=== PATIENT | female | born 1945 | race Caucasian/White ===

== ENCOUNTER 2020-10-19 18:56 | Inpatient (IN) ==
[2020-10-19] MEDS ORDERED: ACETAMINOPHEN 325 MG TABLET PO ONE (19:06)
[2020-10-19] MEDS ORDERED: cefTRIAXone 1 GM in DEXTROSE 5% IN WATER 50 ML IV SCH (19:15)
[2020-10-19] MEDS ORDERED: ALBUTEROL SULFATE 200 PUFF INHALER INH ONE (19:18)
--- NOTE | 2020-10-19 19:21 | Emergency Department Note ---
SOB HPI General Chief Complaint: Shortness of Breath/Dyspnea Stated Complaint: COVID POSITIVE, SOB Time Seen by Provider: 10/19/20 19:00 Source: patient and EMS Mode of arrival: EMS Limitations: altered mental status History of Present Illness HPI Narrative: 75-year-old female brought in by EMS for shortness of breath. Patient was seen yesterday tested positive for COVID-19. Patient smoke cigarettes likely has COPD. She was found to be hypoxic oxygen saturation in the 80s by EMS improved with supplemental oxygen. Also with diffuse wheezes. No chest pain. Patient also has had some fevers and chills and body aches. She had multiple family members test positive for COVID-19. Related Data Home Medications Medication Instructions Recorded Confirmed gabapentin 100 mg capsule 100 mg PO QDAY 02/08/18 05/29/20 pantoprazole 40 mg granules 40 mg PO QDAY 02/08/18 05/29/20 delayed-release for susp in packet amlodipine 5 mg tablet 5 mg PO QDAY 05/29/20 05/29/20 aspirin 81 mg chewable tablet 81 mg PO QDAY 05/29/20 05/29/20 citalopram 40 mg tablet 40 mg PO QDAY tab 05/29/20 05/29/20 dipyridamole 25 mg tablet 50 mg PO QID tab 05/29/20 05/29/20 insulin glargine 100 unit/mL (3 30 unit SUBCUT QAM ml 05/29/20 05/29/20 mL) subcutaneous pen losartan 50 mg tablet 100 mg PO QDAY tab 05/29/20 05/29/20 metoprolol succinate 50 mg 50 mg PO BID tab 05/29/20 05/29/20 tablet,extended release 24 hr oxybutynin chloride 5 mg tablet 5 mg PO QDAY 05/29/20 05/29/20 pravastatin 40 mg tablet 40 mg PO QDAY 05/29/20 05/29/20 trazodone 50 mg tablet 50 mg PO QHS PRN 05/29/20 05/29/20 ergocalciferol (vitamin D2) PO 10/18/20 Previous Rx's Medication Instructions Recorded azithromycin 250 mg PO QDAY 6 Days #6 tab 10/18/20 Allergies Allergy/AdvReac Type Severity Reaction Status Date / Time bacitracin Allergy Unknown None Stated Verified 10/18/20 20:09 Gramicidin D [From NEOSPORIN] Allergy Unknown None Stated Verified 10/18/20 20:09 Penicillins Allergy Unknown RASH Verified 10/18/20 20:09 polymyxin B [From NEOSPORIN] Allergy Unknown None Stated Verified 10/18/20 20:09 simvastatin [SIMVASTATIN] Allergy Unknown N/A Verified 10/18/20 20:09 Sulfa (Sulfonamide Allergy Unknown None Stated Verified 10/18/20 20:09 Antibiotics) From NEOSPORIN Allergy Unknown Unknown Uncoded 08/02/14 05:01 Review of Systems ROS ROS Narrative: Narrative: All systems ED: reviewed and negative except as stated. Constitutional: Reports fever and chills Eyes: Denies vision change ENT ED: Denies throat pain and congestion Cardiovascular: Denies chest pain Respiratory: Reports shortness of breath, cough and wheezes Gastrointestinal: Denies abdominal pain, vomiting and diarrhea Musculoskeletal: Reports joint pain and myalgia Integumentary: Denies rash Neurological: Reports headache Psychiatric: Denies anxiety, suicidal thoughts and homicidal thoughts Endocrine: Denies polydipsia and polyuria Hematological/Lymphatic: Denies easy bleeding and easy bruising PFSH Narrative Patient History Narrative: Hypertension hyperlipidemia and diabetes, CABG Medical/Surgical/Family History All Active Problems (Updated 10/19/20 @ 20:57 by Jonathan Ulloa MD) COVID-19 (Acute) Hypoxemia (Acute) Pneumonia due to 2019 novel coronavirus (Acute) Head injury (Acute) Scalp laceration (Acute) Medical History Head injury Scalp laceration Social History Smoking Status: Current every day smoker Alcohol Intake Frequency: does not drink Substance Use: does not use Exam Narrative Narrative: Vital Signs reviewed. Constitutional: Mild respiratory distress well-nourished well-developed Head: Normocephalic, atraumatic Eyes: PERRLA, EOMI, no conjunctivitis Ear: Normal canals and TM's Oropharynx: moist oral mucosa, no edema, no erythema, no exudate Neck: Supple, no lymphadenopathy, no JVD Lungs: Tachypneic, mildly labored breathing, bilateral wheezes Cardiac: Tachycardic, regular rhythm normal distal pulses, GI: Soft nontender nondistended no guarding no rebound Musculoskeletal: No tenderness, no deformities, no edema, full range of motion Back: no CVA or midline tenderness Neuro: Awake alert, cranial nerves II through XII grossly intact, no focal motor or sensory deficits Psychiatric: Normal mood and affect Skin: Warm dry no rash, cap refill less than 2 seconds General Limitations: altered mental status Course Consultations Consultation #1: As discussed with hospitalist Dr. Ramos who agrees to see and admit patient. Time: 21:21 Vital Signs Vital signs: Vital Signs Temperature 101.7 F H 10/19/20 18:59 Pulse Rate 103 H 10/19/20 18:59 Respiratory Rate 28 H 10/19/20 18:59 Blood Pressure 189/64 10/19/20 18:59 Pulse Oximetry (%) 89 L 10/19/20 18:59 Temperature 101.7 F H 10/19/20 19:28 Pulse Rate 86 10/19/20 21:02 Respiratory Rate 31 H 10/19/20 21:02 Blood Pressure 171/65 10/19/20 21:02 Pulse Oximetry (%) 91 10/19/20 21:02 [facility] MDM Narrative Medical decision making narrative: 75-year-old female tested positive for COVID- 19 yesterday chest x-ray had bilateral infiltrates but was not hypoxic and was not in any distress declined the monoclonal antibody by 5app but was prescribed Zithromax due to history of COPD returns today via EMS for increasing shortness of breath hypoxemia. History of tobacco abuse likely has COPD. Has bronchospasm noted on exam. Patient will be admitted for further evaluation and treatment. Differential Diagnosis Differential Diagnosis: Covid pneumonia, worsening, CHF, ACS Lab Data Result diagrams: 10/19/20 19:25 10/19/20 19:25 Labs: Lab Results 10/19/20 10/19/20 10/19/20 Range/Units 19:25 19:25 19:25 WBC 5.2 (4.5-11.0) K/mcL RBC 4.42 (3.59-5.38) M/mcL Hgb 10.9 L (11.2-15.7) g/dL Hct 34.1 (34.1-44.9) % MCV 77.1 L (80.0-100.0) fL MCH 24.7 L (26.0-34.0) pg MCHC 32.0 (31.0-36.0) g/dL RDW 14.6 H (11.5-14.5) % Plt Count 256 (140-440) K/mcL MPV 10.0 (7.4-10.4) fL PT 12.8 (11.9-14.5) sec INR 0.9 (0.9-1.1) APTT 27.1 (20.0-37.0) sec VBG Lactic Acid (0.5-2.0) mmol/L Sodium 131 L (133-145) mmol/L Potassium 4.0 (3.3-5.1) mmol/L Chloride 94 L (96-108) mmol/L Carbon Dioxide 19 L (22-30) mmol/L Anion Gap 18.0 H (8.0-16.0) BUN 15 (8-23) mg/dL Creatinine 1.6 H (0.6-1.1) mg/dL GFR Calculation 31 Glucose 160 H (70-105) mg/dL Calcium 9.7 (8.6-10.4) mg/dL Total Bilirubin 0.6 (0.1-1.0) mg/dL AST 59 H (<32) U/L ALT 24 (<40) U/L Alkaline Phosphatase 88 (39-117) U/L Troponin T (<0.03) ng/mL NT-Pro-B Natriuret Pep 1004.0 H (<125.0) pg/mL Total Protein 7.2 (5.9-8.4) gm/dL Albumin 3.7 (3.2-5.2) gm/dL Globulin 3.5 (2.2-3.7) gm/dL Albumin/Globulin Ratio 1.1 (1.0-2.3) Procalcitonin (<0.10) ng/mL 10/19/20 10/19/20 10/19/20 Range/Units 19:25 19:25 19:25 WBC (4.5-11.0) K/mcL RBC (3.59-5.38) M/mcL Hgb (11.2-15.7) g/dL Hct (34.1-44.9) % MCV (80.0-100.0) fL MCH (26.0-34.0) pg MCHC (31.0-36.0) g/dL RDW (11.5-14.5) % Plt Count (140-440) K/mcL MPV (7.4-10.4) fL PT (11.9-14.5) sec INR (0.9-1.1) APTT (20.0-37.0) sec VBG Lactic Acid < 0.2 L (0.5-2.0) mmol/L Sodium (133-145) mmol/L Potassium (3.3-5.1) mmol/L Chloride (96-108) mmol/L Carbon Dioxide (22-30) mmol/L Anion Gap (8.0-16.0) BUN (8-23) mg/dL Creatinine (0.6-1.1) mg/dL GFR Calculation Glucose (70-105) mg/dL Calcium (8.6-10.4) mg/dL Total Bilirubin (0.1-1.0) mg/dL AST (<32) U/L ALT (<40) U/L Alkaline Phosphatase (39-117) U/L Troponin T 0.01 (<0.03) ng/mL NT-Pro-B Natriuret Pep (<125.0) pg/mL Total Protein (5.9-8.4) gm/dL Albumin (3.2-5.2) gm/dL Globulin (2.2-3.7) gm/dL Albumin/Globulin Ratio (1.0-2.3) Procalcitonin 0.15 H (<0.10) ng/mL EKG Data EKG #1: EKG attestation: Yes I reviewed and interpreted this EKG. and Yes There are no EKG findings of acute coronary syndrome EKG results narrative: EKG performed at 1927 interpreted by me shows sinus rhythm rate [address] depression in the anterolateral leads no ectopy Discharge Plan Patient/Caregiver Discharge Instructions Pt seen by DIRECTOR OF PAYROLL/PA only: No Clinical Impression: Hypoxemia, Pneumonia due to 2019 novel coronavirus Patient Disposition: Xfer As Inpt ([facility]) Condition: Fair Follow up with: Aleyda Mendez MD [Primary Care Provider] - Prescriptions: No Action pantoprazole [address] for susp in packet 40 mg PO QDAY RF: 0 gabapentin 100 mg capsule 100 mg PO QDAY RF: 0 metoprolol succinate 50 mg tablet extended release 24 hr 50 mg PO BID RF: 0 aspirin [Aspirin Childrens] 81 mg tablet,chewable 81 mg PO QDAY RF: 0 citalopram 40 mg tablet 40 mg PO QDAY RF: 0 amlodipine 5 mg tablet 5 mg PO QDAY RF: 0 Lantus Solostar U-100 Insulin 100 unit/mL (3 mL) insulin pen 30 unit subcut QAM RF: 0 losartan 50 mg tablet 100 mg PO QDAY RF: 0 oxybutynin chloride 5 mg tablet 5 mg PO QDAY RF: 0 pravastatin 40 mg tablet 40 mg PO QDAY RF: 0 trazodone 50 mg tablet 50 mg PO QHS PRN (Reason: Sleep) RF: 0 dipyridamole 25 mg tablet 50 mg PO QID RF: 0 ergocalciferol (vitamin D2) 1,250 mcg (50,000 unit) capsule PO RF: 0 azithromycin 250 mg tablet 250 mg PO QDAY 6 Days Qty: 6 RF: 0
[2020-10-19] MEDS: ALBUTEROL SULFATE 2.5 MG/3 ML NEBULIZER NEB ONE ×2 (19:29→19:31)
[2020-10-19 20:19] LABS: Hematocrit 34.1 % (34.1-44.9); Hemoglobin 10.9 g/dL (11.2-15.7); Mean Cell Volume 77.1 fL (80.0-100.0); Platelet Count 256 K/mcL (140-440); RBC 4.42 M/mcL (3.59-5.38); Red Cell Distribution Width 14.6 % (11.5-14.5); WBC 5.2 K/mcL (4.5-11.0)
--- NOTE | 2020-10-19 20:23 | XRay Report ---
HISTORY: Short of breath, tested positive for COVID pneumonia FINDINGS: There is a patchy distribution of groundglass alveolar infiltrates throughout both lungs. These have become worse since 10/18/20. Lung volumes remain normal. There is no pneumothorax or pleural effusion. Heart size is within upper limits of normal. There has been a prior sternotomy. IMPRESSION: Mild to moderate COVID pneumonia which is becoming worse Interpreted and Authenticated by: Alfa Juarez 10/19/20
[2020-10-19 20:36] LABS: INR 0.9 (0.9-1.1); Partial Thromboplastin Time 27.1 sec (20.0-37.0); Prothrombin Time 12.8 sec (11.9-14.5)
[2020-10-19 20:43] LABS: ALT/SGPT 24 U/L (<40); AST/SGOT 59 U/L (<32); Albumin 3.7 gm/dL (3.2-5.2); Albumin/Globulin Ratio 1.1 (1.0-2.3); Alkaline Phosphatase 88 U/L (39-117); Bilirubin,Total 0.6 mg/dL (0.1-1.0); Blood Urea Nitrogen 15 mg/dL (8-23); Calcium 9.7 mg/dL (8.6-10.4); Carbon Dioxide 19 mmol/L (22-30); Chloride 94 mmol/L (96-108); Globulin 3.5 gm/dL (2.2-3.7); Glomerular Filtration Rate 31; Glucose 160 mg/dL (70-105)
[2020-10-19] MEDS ORDERED: REMDESIVIR 200 MG in 0.9 % SODIUM CHLORIDE 250 ML IV ONE (21:34)
--- NOTE | 2020-10-19 21:38 | Internal Med History&Physical ---
HPI History of Present Illness Patient information: Note initiated : 10/19/20 at 9:32 pm Service Date, if different from initiated Date: [] Patient: Sharla Michaels a 75 y/o F admitted on for COVID POSITIVE, SOB. Chief Complaint: [] History of present illness: Ms. Michaels is a 75 year old F Patient presents to the ED with shortness of breath cough fever chills. Patient says she has been ill for about 5 days she came in yesterday and was found to be Covid positive she was offered monoclonal antibodies but refused. She is unvaccinated and says she did get vaccinated because she does not drive. Ms Michaels is yet another unvaccinated patient presenting with Covid pneumonia. She has a history of diabetes stroke vascular disease including CAD has obesity and smokes as well as has COPD. In the ED she was hypoxic in the upper 80s on room air put on several liters oxygen. Review of Systems: Pertinent positives as above. Denies headache/nausea/vomiting/chest or abdominal pain/diarrhea. Remaining 10 point review of system reviewed negative PFSH PFSH All Active Problems (Updated 10/19/20 @ 20:57 by Jonathan Ulloa MD) COVID-19 (Acute) Hypoxemia (Acute) Pneumonia due to 2019 novel coronavirus (Acute) Head injury (Acute) Scalp laceration (Acute) Medical History Head injury Scalp laceration Social History alcohol intake frequency: does not drink substance use type: does not use MEDS/ALLERGIES Home Medications and Allergies Home Medications Medication Instructions Recorded Confirmed Type gabapentin 100 mg capsule 100 mg PO QDAY 02/08/18 05/29/20 History pantoprazole 40 mg granules 40 mg PO QDAY 02/08/18 05/29/20 History delayed-release for susp in packet amlodipine 5 mg tablet 5 mg PO QDAY 05/29/20 05/29/20 History aspirin 81 mg chewable tablet 81 mg PO QDAY 05/29/20 05/29/20 History citalopram 40 mg tablet 40 mg PO QDAY tab 05/29/20 05/29/20 History dipyridamole 25 mg tablet 50 mg PO QID tab 05/29/20 05/29/20 History insulin glargine 100 unit/mL (3 30 unit SUBCUT QAM ml 05/29/20 05/29/20 History mL) subcutaneous pen losartan 50 mg tablet 100 mg PO QDAY tab 05/29/20 05/29/20 History metoprolol succinate 50 mg 50 mg PO BID tab 05/29/20 05/29/20 History tablet,extended release 24 hr oxybutynin chloride 5 mg tablet 5 mg PO QDAY 05/29/20 05/29/20 History pravastatin 40 mg tablet 40 mg PO QDAY 05/29/20 05/29/20 History trazodone 50 mg tablet 50 mg PO QHS PRN 05/29/20 05/29/20 History azithromycin 250 mg PO QDAY 6 Days #6 tab 10/18/20 Rx ergocalciferol (vitamin D2) PO 10/18/20 History Allergies Allergy/AdvReac Type Severity Reaction Status Date / Time bacitracin Allergy Unknown None Stated Verified 10/18/20 20:09 Gramicidin D [From NEOSPORIN] Allergy Unknown None Stated Verified 10/18/20 20:09 Penicillins Allergy Unknown RASH Verified 10/18/20 20:09 polymyxin B [From NEOSPORIN] Allergy Unknown None Stated Verified 10/18/20 20:09 simvastatin [SIMVASTATIN] Allergy Unknown N/A Verified 10/18/20 20:09 Sulfa (Sulfonamide Allergy Unknown None Stated Verified 10/18/20 20:09 Antibiotics) From NEOSPORIN Allergy Unknown Unknown Uncoded 08/02/14 05:01 EXAM Constitutional Vitals: Temp Pulse Resp BP Pulse Ox 101.7 F H 86 31 H 171/65 91 10/19/20 19:28 10/19/20 21:02 10/19/20 21:02 10/19/20 21:02 10/19/20 21:02 Exam: General: Alert, Awake, No acute Distress, obese Eyes/N/T: EOMI, PERRL, Head/Neck: neck supple, normocephalic atraumatic CV: RRR, No murmurs, normal s1/s2 Pulm: Wheezing b/l, no rales Abd: soft, nontender, +BS x4 Ext: no clubbing/cyanosis/edema Neuro: Alert, no focal deficits, moves all extremities, CN 2-12 grossly intact, symmetrical strength b/l upper/lower, sensations intact b/l upper/lower Skin: warm/dry DATA Data Completed and Pending Labs: Labs from last 24 hours 10/19/20 10/19/20 10/19/20 19:25 19:25 19:25 WBC RBC Hgb Hct MCV MCH MCHC RDW Plt Count MPV Platelet Estimate RBC Morphology PT INR APTT VBG Lactic Acid < 0.2 L Sodium Potassium Chloride Carbon Dioxide Anion Gap BUN Creatinine GFR Calculation Glucose Calcium Total Bilirubin AST ALT Alkaline Phosphatase Troponin T 0.01 NT-Pro-B Natriuret Pep Total Protein Albumin Globulin Albumin/Globulin Ratio Procalcitonin 0.15 H 10/19/20 10/19/20 10/19/20 19:25 19:25 19:25 WBC 5.2 RBC 4.42 Hgb 10.9 L Hct 34.1 MCV 77.1 L MCH 24.7 L MCHC 32.0 RDW 14.6 H Plt Count 256 MPV 10.0 Platelet Estimate Pending RBC Morphology Pending PT 12.8 INR 0.9 APTT 27.1 VBG Lactic Acid Sodium 131 L Potassium 4.0 Chloride 94 L Carbon Dioxide 19 L Anion Gap 18.0 H BUN 15 Creatinine 1.6 H GFR Calculation 31 Glucose 160 H Calcium 9.7 Total Bilirubin 0.6 AST 59 H ALT 24 Alkaline Phosphatase 88 Troponin T NT-Pro-B Natriuret Pep 1004.0 H Total Protein 7.2 Albumin 3.7 Globulin 3.5 Albumin/Globulin Ratio 1.1 Procalcitonin A/P Narrative A/P Narrative: A: *Covid pneumonia: *Acute hypoxic respiratory failure: -on 2L *COPD(not on home O2): *Tobacco abuse: *Hyponatremia: *DM w/neuropathy: *h/o CAD w/CABG & PVD w/stents: *h/o CVA: *CKD IIIb: *Anemia, chronic: *HTN/HLD: *Depression: *GERD: *Obesity: * P: -Remdesivir/dexamethasone -O2 supp, wean as able -Proning and mobilization, IS/Acapella, prn nebs - -clarify home meds -cont Norvasc/losartan/BB -cont on ASA/Dipyradamole -basal and SSI -Smoking cessation counseling -PT/OT -ppx: Lovenox twice daily /home PPI Time Spent With Patient Time: Total time spent is greater than 50% in coordination of care (as documented) at patient's floor/unit and/or counseling patient:
[2020-10-19 21:47] LABS: Anisocytosis 1+ (None Seen); Band Neutrophils % 1 % (0-10); Lymphocytes % 10 % (15-49); Monocytes % (Manual) 4 % (1-12); Platelet Estimate NORMAL (Normal); RBC Morphology ABNORMAL (Normal); Segmented Neutrophils % 85 % (38-78)
[2020-10-19] MEDS ORDERED: DEXTROSE 31 GM ORAL.SUSP PO PRN (23:41)
[2020-10-19] MEDS ORDERED: REMDESIVIR 100 MG in 0.9 % SODIUM CHLORIDE 250 ML IV SCH (23:41)
[2020-10-19] MEDS ORDERED: POLYETHYLENE GLYCOL 3350 17 GM PACKET PO PRN (23:41)
[2020-10-19] MEDS ORDERED: POTASSIUM CHLORIDE 20 MEQ TABLET PO PRN ×2 (23:41)
[2020-10-19] MEDS ORDERED: DEXTROSE 50% 50 ML VIAL IV PRN (23:41)
[2020-10-19] MEDS ORDERED: MAGNESIUM SULFATE 2 GM/50 ML BAG IV PRN (23:41)
[2020-10-19] MEDS ORDERED: SENNOSIDES 1 TABLET PO PRN (23:41)
[2020-10-19] MEDS: 0.9 % SODIUM CHLORIDE 10 ML SYRINGE IV SCH (23:41)
[2020-10-19] MEDS ORDERED: ACETAMINOPHEN 325 MG TABLET PO PRN (23:41)
[2020-10-19] MEDS ORDERED: POTASSIUM CHLORIDE 40 MEQ in DEXTROSE 5% IN WATER 500 ML IV PRN (23:41)
[2020-10-19] MEDS ORDERED: ONDANSETRON 4 MG/2 ML VIAL IV PRN (23:41)
[2020-10-19] MEDS ORDERED: IPRATROPIUM/ALBUTEROL 3 ML AMPUL.NEB NEB PRN (23:41)
[2020-10-20] MEDS: IPRATROPIUM/ALBUTEROL 3 ML AMPUL.NEB NEB SCH ×4 (02:51→23:48)
[2020-10-20] MEDS: 0.9 % SODIUM CHLORIDE 10 ML SYRINGE IV SCH ×3 (05:44→20:38)
[2020-10-20] MEDS ORDERED: traZODone HCL 50 MG TABLET PO PRN (07:06)
--- NOTE | 2020-10-20 07:09 | Internal Med Progress Note ---
SUBJECTIVE Subjective Patient information: Note initiated : 10/20/20 at 7:05 am Service Date, if different from initiated Date: [] Patient: Sharla Michaels a 75 y/o F admitted on 10/19/20 for COVID POSITIVE, SOB. Chief Complaint: [] Interval history: History of present illness: Ms. Michaels is a 75 year old F Patient presents to the ED with shortness of breath cough fever chills. Patient says she has been ill for about 5 days she came in yesterday and was found to be Covid positive she was offered monoclonal antibodies but refused. She is unvaccinated and says she did get vaccinated because she does not drive. Ms Michaels is yet another unvaccinated patient presenting with Covid pneumonia. She has a history of diabetes stroke vascular disease including CAD has obesity and smokes as well as has COPD. In the ED she was hypoxic in the upper 80s on room air put on several liters oxygen. 10/20 Patient feels a little bit better. Says her shortness of breath is better but still present. However nurse had to titrate to 2 to 4 L and she got up to the bedside this morning. Has productive cough. Review of Systems: denies headache/fever/chills/nausea/vomiting/chest or abdominal pain/diarrhea. Otherwise see above. Constitutional Vitals: Vital Signs Temp Pulse Resp BP Pulse Ox 97.6 F 67 22 128/70 95 10/20/20 03:41 10/20/20 03:41 10/20/20 03:41 10/20/20 03:41 10/20/20 03:41 Period Temp Pulse Resp BP Sys/Tai Pulse Ox Last 24 Hr 97.2 F-101.7 F 67-103 17-35 100-189/52-112 89-100 Intake and Output 10/19/20 10/20/20 10/20/20 21:59 05:59 13:59 Intake Total 50 610 Output Total 2 Balance 50 608 Weight 83.915 kg 81.703 kg Intake & Output: Intake & Output 10/19/20 10/20/20 10/20/20 21:59 05:59 13:59 Intake Total 50 610 Output Total 2 Balance 50 608 Weight 83.915 kg 81.703 kg Intake: IV 50 250 Veklury 200 mg In Sodium 250 Chloride 0.9% 250 ml @ 500 mls/ hr IV ONCE ONE Rx#:[id number] Rocephin 1 gm In Dextrose 5% in 50 Water 50 ml @ 100 mls/hr IV ONCE NIURKA Rx#:[id number] Oral 360 Output: # of times incontinent of urine 2 Other: Meal Nourishment/Supplement Percent of Meal Consumed 25% Feeding Ability Independent Urine Appearance Clear Urine Color Bright Yellow Urine Odor Normal # Voids 2 Exam: General: Alert, Awake, No acute Distress, obese Eyes/N/T: EOMI, , Head/Neck: neck supple, CV: RRR, No murmurs, Pulm: Diminished b/l, mild rhonchi/rales/wheezing b/l Abd: soft, nontender, +BS x4 Ext: no clubbing/cyanosis, trace b/l LE edema Neuro: Alert, no focal deficits, moves all extremities, Skin: warm/dry OBJ DATA Labs CBC & Chem 7: 10/20/20 06:09 10/20/20 06:09 Labs: Abnormal Lab Results 10/19/20 10/19/20 10/19/20 21:40 19:25 19:25 Hgb MCV MCH RDW Seg Neutrophils % Lymphocytes % RBC Morphology Anisocytosis VBG Lactic Acid < 0.2 L Sodium Chloride Carbon Dioxide Anion Gap Creatinine Glucose AST C-Reactive Protein 14.50 H NT-Pro-B Natriuret Pep Procalcitonin 0.15 H 10/19/20 10/19/20 19:25 19:25 Hgb 10.9 L MCV 77.1 L MCH 24.7 L RDW 14.6 H Seg Neutrophils % 85 H Lymphocytes % 10 L RBC Morphology Abnormal A Anisocytosis 1+ A VBG Lactic Acid Sodium 131 L Chloride 94 L Carbon Dioxide 19 L Anion Gap 18.0 H Creatinine 1.6 H Glucose 160 H AST 59 H C-Reactive Protein NT-Pro-B Natriuret Pep 1004.0 H Procalcitonin Meds: Medications Acetaminophen (Acetaminophen 325 Mg Tablet) 650 mg PO Q6HP PRN PRN Reason: PAIN/FEVER > 101 Albuterol/Ipratropium (Ipratropium/Albuterol 3 Ml Ampul.Neb) 3 ml NEB Q4HP PRN PRN Reason: Shortness Of Breath Albuterol/Ipratropium (Ipratropium/Albuterol 3 Ml Ampul.Neb) 3 ml NEB Q8H [facility] Last Admin: 10/20/20 02:51 Dose: Not Given Documented by: Dexamethasone (Dexamethasone 4 Mg Tablet) 6 mg PO DAILY [facility] Dextrose (Dextrose 50% 50 Ml Vial) 0 ml IV UD PRN PRN Reason: Hypoglycemia Diagnostic Test (Pha) (Accu-Chek 1 Each Strip) 1 each FS ACHS [facility] Docusate Sodium (Docusate Sodium 100 Mg Capsule) 100 mg PO BID [facility] Enoxaparin Sodium (Enoxaparin 40 Mg/0.4 Ml Syringe) 40 mg SQ BID [facility] Glucose (Dextrose 31 Gm Oral.Susp) 15 gm PO PRN PRN PRN Reason: Hypoglycemia Potassium Chloride 40 meq/ (Dextrose) 520 mls @ 130 mls/hr IV UD PRN PRN Reason: Potassium < 3 Magnesium Sulfate (Magnesium Sulfate) 2 gm in 50 mls @ 50 mls/hr IV UD PRN PRN Reason: Magnesium </= 1.6 REMDESIVIR 100 mg/ Sodium (Chloride) 250 mls @ 500 mls/hr IV Q24H [facility] Stop: 10/23/20 13:29 Insulin Human Lispro (Insulin Lispro 1 Unit/0.01 Ml Unit) 0 unit SQ [facility]; Protocol Ondansetron HCl (Ondansetron 4 Mg/2 Ml Vial) 4 mg IV Q4HP PRN PRN Reason: Nausea And Vomiting Polyethylene Glycol (Polyethylene Glycol 3350 17 Gm Packet) 17 gm PO DAILYP PRN PRN Reason: Constipation Potassium Chloride (Potassium Chloride 20 Meq Tablet) 40 meq PO UD PRN PRN Reason: Potssium is 3-3.5 Potassium Chloride (Potassium Chloride 20 Meq Tablet) 40 meq PO UD PRN PRN Reason: Potassium < 3 Senna (Sennosides 1 Tablet) 2 tab PO DAILYP PRN PRN Reason: Constipation Sodium Chloride (0.9 % Sodium Chloride 10 Ml Syringe) 10 ml IV Q8 [facility] Last Admin: 10/20/20 05:44 Dose: 10 ml Documented by: A/P Narrative A/P Narrative: A: *Covid pneumonia: *Acute hypoxic respiratory failure: -on 2L *COPD(not on home O2): *Tobacco abuse: *Hyponatremia: stable *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 *h/o CAD w/CABG & PVD w/stents: *h/o CVA: *CKD IIIb: stable *Anemia, chronic: *HTN/HLD: *Depression: *GERD: *Obesity: * P: -Remdesivir/dexamethasone -O2 supp, wean as able -Proning and mobilization, IS/Acapella, prn nebs -cont losartan/BB, restart norvasc if BP increases -cont on ASA/Dipyradamole -basal and SSI -Smoking cessation counseling -PT/OT -ppx: Lovenox twice daily /home PPI Time Spent With Patient Time: Total time spent is greater than 50% in coordination of care (as documented) at patient's floor/unit and/or counseling patient:
[2020-10-20 07:21] LABS: Hematocrit 30.6 % (34.1-44.9); Hemoglobin 9.6 g/dL (11.2-15.7); Mean Cell Volume 77.3 fL (80.0-100.0); Mean Corpuscular HGB Conc 31.4 g/dL (31.0-36.0); Mean Platelet Volume 9.9 fL (7.4-10.4); Platelet Count 252 K/mcL (140-440); RBC 3.96 M/mcL (3.59-5.38); Red Cell Distribution Width 14.7 % (11.5-14.5); WBC 3.4 K/mcL (4.5-11.0)
[2020-10-20] MEDS: LOSARTAN 50 MG TABLET PO SCH (08:34)
[2020-10-20] MEDS: GABAPENTIN 100 MG CAPSULE PO SCH (08:34)
[2020-10-20] MEDS: ASPIRIN 81 MG TAB.CHEW PO SCH (08:34)
[2020-10-20] MEDS: DOCUSATE SODIUM 100 MG CAPSULE PO SCH ×2 (08:34→20:36)
[2020-10-20] MEDS: ENOXAPARIN 40 MG/0.4 ML SYRINGE SQ SCH ×2 (08:35→20:37)
[2020-10-20] MEDS: METOPROLOL SUCCINATE 50 MG TAB.XL.24H PO SCH ×2 (08:35→20:36)
[2020-10-20] MEDS: OXYBUTYNIN CHLORIDE 5 MG TABLET PO SCH (08:35)
[2020-10-20] MEDS: CITALOPRAM 20 MG TABLET PO SCH (08:35)
[2020-10-20] MEDS: INSULIN LISPRO 1 UNIT/0.01 ML UNIT SQ SCH ×4 (08:35→20:44)
[2020-10-20 08:48] LABS: Anisocytosis 1+ (None Seen); Band Neutrophils % 2 % (0-10); Lymphocytes % 9 % (15-49); Platelet Estimate NORMAL (Normal); RBC Morphology ABNORMAL (Normal); Segmented Neutrophils % 89 % (38-78)
[2020-10-20 08:51] LABS: ALT/SGPT 22 U/L (<40); AST/SGOT 50 U/L (<32); Albumin 3.3 gm/dL (3.2-5.2); Albumin/Globulin Ratio 1.1 (1.0-2.3); Alkaline Phosphatase 74 U/L (39-117); Bilirubin,Direct < 0.2 mg/dL (0-0.3); Bilirubin,Total 0.3 mg/dL (0.1-1.0); Blood Urea Nitrogen 19 mg/dL (8-23); Calcium 9.1 mg/dL (8.6-10.4); Carbon Dioxide 20 mmol/L (22-30); Chloride 97 mmol/L (96-108); Globulin 3.1 gm/dL (2.2-3.7); Glomerular Filtration Rate 31; Glucose 357 mg/dL (70-105); Lactate Dehydrogenase 285 U/L (135-225); Phosphorous 2.4 mg/dL (2.5-4.5); Triglycerides 92 mg/dL (<150); Uric Acid 7.6 mg/dL (2.5-8.0)
[2020-10-20 08:58] LABS: Estimated Average Glucose(eAG) 246 mg/dL; Hemoglobin A1C 10.2 % Hgb (4.0-6.0)
[2020-10-20] MEDS ORDERED: DEXAMETHASONE 4 MG TABLET PO SCH (09:00)
[2020-10-20] MEDS ORDERED: PRAVASTATIN 40 MG TABLET PO SCH (09:00)
[2020-10-20] MEDS ORDERED: INSULIN GLARGINE, HUMAN 1 UNIT/0.01 ML SQ SCH (09:00)
[2020-10-20] MEDS ORDERED: FUROSEMIDE 40 MG/4 ML VIAL IV ONE (09:01)
[2020-10-20] MEDS: DEXAMETHASONE 4 MG TABLET PO SCH (10:07)
[2020-10-20] MEDS: DIPYRIDAMOLE 25 MG TABLET PO SCH ×4 (11:40→20:37)
[2020-10-20] MEDS: REMDESIVIR 100 MG in 0.9 % SODIUM CHLORIDE 250 ML IV SCH (13:34)
[2020-10-20] MEDS: PRAVASTATIN 40 MG TABLET PO SCH (20:38)
[2020-10-21] MEDS: 0.9 % SODIUM CHLORIDE 10 ML SYRINGE IV SCH ×3 (04:28→20:46)
[2020-10-21] MEDS: IPRATROPIUM/ALBUTEROL 3 ML AMPUL.NEB NEB SCH ×3 (07:26→23:35)
[2020-10-21 07:39] LABS: Basophils # (Auto) 0.01 K/mcL (0.00-0.30); Basophils % (Auto) 0.1 % (0.0-2.0); Eosinophils # (Auto) 0 K/mcL (0.00-0.70); Eosinophils % (Auto) 0 % (0.0-7.0); Hematocrit 32.5 % (34.1-44.9); Hemoglobin 10.3 g/dL (11.2-15.7); Lymphocytes # (Auto) 0.59 K/mcL (1.50-4.80); Lymphocytes % (Auto) 6.1 % (15.5-49.0); Mean Cell Volume 77.9 fL (80.0-100.0); Mean Corpuscular HGB Conc 31.7 g/dL (31.0-36.0); Mean Platelet Volume 9.9 fL (7.4-10.4); Monocytes # (Auto) 0.48 K/mcL (0.10-0.90); Neutrophils % (Auto) 88.8 % (38.0-78.0); Platelet Count 329 K/mcL (140-440); RBC 4.17 M/mcL (3.59-5.38); Red Cell Distribution Width 14.9 % (11.5-14.5); WBC 9.6 K/mcL (4.5-11.0)
--- NOTE | 2020-10-21 07:41 | Internal Med Progress Note ---
SUBJECTIVE Subjective Patient information: Note initiated : 10/21/20 at 7:37 am Service Date, if different from initiated Date: [] Patient: Sharla Michaels a 75 y/o F admitted on 10/19/20 for COVID POSITIVE, SOB. Chief Complaint: [] Interval history: History of present illness: Ms. Michaels is a 75 year old F Patient presents to the ED with shortness of breath cough fever chills. Patient says she has been ill for about 5 days she came in yesterday and was found to be Covid positive she was offered monoclonal antibodies but refused. She is unvaccinated and says she did get vaccinated because she does not drive. Ms Michaels is yet another unvaccinated patient presenting with Covid pneumonia. She has a history of diabetes stroke vascular disease including CAD has obesity and smokes as well as has COPD. In the ED she was hypoxic in the upper 80s on room air put on several liters oxygen. 10/20 Patient feels a little bit better. Says her shortness of breath is better but still present. However nurse had to titrate to 2 to 4 L and she got up to the bedside this morning. Has productive cough. 10/21 Cough present. She says her breathing is improved today. Still requiring 4 to 5 L of oxygen. Sodium within normal limits. cr 1.4. Review of Systems: denies headache/fever/chills/nausea/vomiting/chest or abdominal pain/diarrhea. Otherwise see above. Constitutional Vitals: Vital Signs Temp Pulse Resp BP Pulse Ox 100.7 F H 74 20 150/70 95 10/21/20 02:29 10/21/20 07:29 10/21/20 07:29 10/21/20 02:29 10/21/20 07:26 Period Temp Pulse Resp BP Sys/Tai Pulse Ox Last 24 Hr 97.5 F-100.7 F 68-97 18-24 130-150/62-86 90-95 Intake and Output 10/20/20 10/21/20 10/21/20 21:59 05:59 13:59 Intake Total 650 240 Output Total 400 351 Balance 250 -111 Weight 83.971 kg Intake & Output: Intake & Output 10/20/20 10/21/20 10/21/20 21:59 05:59 13:59 Intake Total 650 240 Output Total 400 351 Balance 250 -111 Weight 83.971 kg Intake: IV 250 Veklury 100 mg In Sodium 250 Chloride 0.9% 250 ml @ 500 mls/ hr IV Q24H [facility] Rx#:[id number] Oral 400 240 Output: Void Amount 400 350 # of times incontinent of urine 1 Other: Meal Lunch Percent of Meal Consumed 50% Urine Color Dark Yellow Urine Odor Strong Exam: General: Alert, Awake, No acute Distress, obese Eyes/N/T: EOMI, , Head/Neck: neck supple, CV: RRR, No murmurs, Pulm: Diminished b/l but improving, mild rhonchi/rales, no wheezing today Abd: soft, nontender, +BS x4 Ext: no clubbing/cyanosis, trace b/l LE edema Neuro: Alert, no focal deficits, moves all extremities, Skin: warm/dry OBJ DATA Labs CBC & Chem 7: 10/21/20 06:12 10/21/20 06:12 Labs: Abnormal Lab Results 10/20/20 10/20/20 10/19/20 06:09 06:09 21:40 WBC 3.4 L Hgb 9.6 L Hct 30.6 L MCV 77.3 L MCH 24.2 L RDW 14.7 H Seg Neutrophils % 89 H Lymphocytes % 9 L RBC Morphology Abnormal A Anisocytosis 1+ A VBG Lactic Acid Sodium 130 L Chloride Carbon Dioxide 20 L Anion Gap Creatinine 1.6 H Glucose 357 H Hemoglobin A1c 10.2 H Phosphorus 2.4 L AST 50 H Lactate Dehydrogenase 285 H C-Reactive Protein 16.70 H 14.50 H NT-Pro-B Natriuret Pep Procalcitonin 10/19/20 10/19/20 10/19/20 19:25 19:25 19:25 WBC Hgb Hct MCV MCH RDW Seg Neutrophils % Lymphocytes % RBC Morphology Anisocytosis VBG Lactic Acid < 0.2 L Sodium 131 L Chloride 94 L Carbon Dioxide 19 L Anion Gap 18.0 H Creatinine 1.6 H Glucose 160 H Hemoglobin A1c Phosphorus AST 59 H Lactate Dehydrogenase C-Reactive Protein NT-Pro-B Natriuret Pep 1004.0 H Procalcitonin 0.15 H 10/19/20 19:25 WBC Hgb 10.9 L Hct MCV 77.1 L MCH 24.7 L RDW 14.6 H Seg Neutrophils % 85 H Lymphocytes % 10 L RBC Morphology Abnormal A Anisocytosis 1+ A VBG Lactic Acid Sodium Chloride Carbon Dioxide Anion Gap Creatinine Glucose Hemoglobin A1c Phosphorus AST Lactate Dehydrogenase C-Reactive Protein NT-Pro-B Natriuret Pep Procalcitonin Meds: Medications Acetaminophen (Acetaminophen 325 Mg Tablet) 650 mg PO Q6HP PRN PRN Reason: PAIN/FEVER > 101 Last Admin: 10/21/20 02:37 Dose: 650 mg Documented by: Albuterol/Ipratropium (Ipratropium/Albuterol 3 Ml Ampul.Neb) 3 ml NEB Q4HP PRN PRN Reason: Shortness Of Breath Albuterol/Ipratropium (Ipratropium/Albuterol 3 Ml Ampul.Neb) 3 ml NEB Q8H [facility] Last Admin: 10/21/20 07:26 Dose: 3 ml Documented by: Aspirin (Aspirin 81 Mg Tab.Chew) 81 mg PO QDAY [facility] Last Admin: 10/20/20 08:34 Dose: 81 mg Documented by: Citalopram Hydrobromide (Citalopram 20 Mg Tablet) 40 mg PO DAILY [facility] Last Admin: 10/20/20 08:35 Dose: 40 mg Documented by: Dexamethasone (Dexamethasone 4 Mg Tablet) 6 mg PO DAILY [facility] Last Admin: 10/20/20 10:07 Dose: 6 mg Documented by: Dextrose (Dextrose 50% 50 Ml Vial) 0 ml IV UD PRN PRN Reason: Hypoglycemia Diagnostic Test (Pha) (Accu-Chek 1 Each Strip) 1 each FS ACHS [facility] Last Admin: 10/20/20 20:44 Dose: 1 each Documented by: Dipyridamole (Dipyridamole 25 Mg Tablet) 50 mg PO QID [facility] Last Admin: 10/20/20 20:37 Dose: 50 mg Documented by: Docusate Sodium (Docusate Sodium 100 Mg Capsule) 100 mg PO BID [facility] Last Admin: 10/20/20 20:36 Dose: 100 mg Documented by: Enoxaparin Sodium (Enoxaparin 40 Mg/0.4 Ml Syringe) 40 mg SQ BID [facility] Last Admin: 10/20/20 20:37 Dose: 40 mg Documented by: Gabapentin (Gabapentin 100 Mg Capsule) 100 mg PO QDAY [facility] Last Admin: 10/20/20 08:34 Dose: 100 mg Documented by: Glucose (Dextrose 31 Gm Oral.Susp) 15 gm PO PRN PRN PRN Reason: Hypoglycemia Potassium Chloride 40 meq/ (Dextrose) 520 mls @ 130 mls/hr IV UD PRN PRN Reason: Potassium < 3 Magnesium Sulfate (Magnesium Sulfate) 2 gm in 50 mls @ 50 mls/hr IV UD PRN PRN Reason: Magnesium </= 1.6 REMDESIVIR 100 mg/ Sodium (Chloride) 250 mls @ 500 mls/hr IV Q24H [facility] Stop: 10/23/20 13:29 Last Infusion: 10/20/20 14:12 Dose: Infused Documented by: Insulin Glargine (Insulin Glargine, Human 1 Unit/0.01 Ml) 30 unit SQ QAM [facility] Last Admin: 10/20/20 08:36 Dose: 30 unit Documented by: Insulin Human Lispro (Insulin Lispro 1 Unit/0.01 Ml Unit) 0 unit SQ ACHS [facility]; Protocol Last Admin: 10/20/20 20:44 Dose: 12 unit Documented by: Losartan Potassium (Losartan 50 Mg Tablet) 100 mg PO QDAY [facility] Last Admin: 10/20/20 08:34 Dose: 100 mg Documented by: Metoprolol Succinate (Metoprolol Succinate 50 Mg Tab.Xl.24h) 50 mg PO BID [facility] Last Admin: 10/20/20 20:36 Dose: 50 mg Documented by: Ondansetron HCl (Ondansetron 4 Mg/2 Ml Vial) 4 mg IV Q4HP PRN PRN Reason: Nausea And Vomiting Oxybutynin Chloride (Oxybutynin Chloride 5 Mg Tablet) 5 mg PO QDAY [facility] Last Admin: 10/20/20 08:35 Dose: 5 mg Documented by: Polyethylene Glycol (Polyethylene Glycol 3350 17 Gm Packet) 17 gm PO DAILYP PRN PRN Reason: Constipation Potassium Chloride (Potassium Chloride 20 Meq Tablet) 40 meq PO UD PRN PRN Reason: Potssium is 3-3.5 Potassium Chloride (Potassium Chloride 20 Meq Tablet) 40 meq PO UD PRN PRN Reason: Potassium < 3 Pravastatin Sodium (Pravastatin 40 Mg Tablet) 40 mg PO HS [facility] Last Admin: 10/20/20 20:38 Dose: 40 mg Documented by: Senna (Sennosides 1 Tablet) 2 tab PO DAILYP PRN PRN Reason: Constipation Sodium Chloride (0.9 % Sodium Chloride 10 Ml Syringe) 10 ml IV Q8 [facility] Last Admin: 10/21/20 04:28 Dose: 10 ml Documented by: Trazodone HCl (Trazodone Hcl 50 Mg Tablet) 50 mg PO QHS PRN PRN Reason: Sleep A/P Narrative A/P Narrative: A: *Covid pneumonia: -febrile early this morning *Acute hypoxic respiratory failure: -on 5L oxymask *COPD(not 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
[2020-10-21] MEDS: DIPYRIDAMOLE 25 MG TABLET PO SCH ×4 (08:09→20:44)
[2020-10-21] MEDS: GABAPENTIN 100 MG CAPSULE PO SCH (08:10)
[2020-10-21] MEDS: OXYBUTYNIN CHLORIDE 5 MG TABLET PO SCH (08:10)
[2020-10-21] MEDS: DOCUSATE SODIUM 100 MG CAPSULE PO SCH ×2 (08:10→20:45)
[2020-10-21] MEDS: ASPIRIN 81 MG TAB.CHEW PO SCH (08:10)
[2020-10-21] MEDS: CITALOPRAM 20 MG TABLET PO SCH (08:10)
[2020-10-21 08:27] LABS: ALT/SGPT 24 U/L (<40); AST/SGOT 51 U/L (<32); Albumin 2.7 gm/dL (3.2-5.2); Albumin/Globulin Ratio 0.8 (1.0-2.3); Alkaline Phosphatase 69 U/L (39-117); Bilirubin,Direct < 0.2 mg/dL (0-0.3); Bilirubin,Total 0.3 mg/dL (0.1-1.0); Blood Urea Nitrogen 28 mg/dL (8-23); Calcium 9.5 mg/dL (8.6-10.4); Carbon Dioxide 20 mmol/L (22-30); Chloride 100 mmol/L (96-108); Globulin 3.6 gm/dL (2.2-3.7); Glomerular Filtration Rate 37; Glucose 143 mg/dL (70-105); Lactate Dehydrogenase 377 U/L (135-225); Phosphorous 2.7 mg/dL (2.5-4.5); Triglycerides 92 mg/dL (<150); Uric Acid 8.1 mg/dL (2.5-8.0)
[2020-10-21] MEDS: INSULIN LISPRO 1 UNIT/0.01 ML UNIT SQ SCH ×5 (10:34→20:50)
[2020-10-21] MEDS: INSULIN GLARGINE, HUMAN 1 UNIT/0.01 ML SQ SCH (10:35)
[2020-10-21] MEDS: METOPROLOL SUCCINATE 50 MG TAB.XL.24H PO SCH ×2 (10:36→20:57)
[2020-10-21] MEDS: LOSARTAN 50 MG TABLET PO SCH (10:36)
[2020-10-21] MEDS: amLODIPine 5 MG TABLET PO SCH (10:36)
[2020-10-21] MEDS: DEXAMETHASONE 4 MG TABLET PO SCH (10:36)
[2020-10-21] MEDS: ENOXAPARIN 40 MG/0.4 ML SYRINGE SQ SCH ×2 (10:37→20:46)
[2020-10-21] MEDS: REMDESIVIR 100 MG in 0.9 % SODIUM CHLORIDE 250 ML IV SCH (14:44)
[2020-10-21] MEDS: PRAVASTATIN 40 MG TABLET PO SCH (20:46)
[2020-10-22] MEDS: 0.9 % SODIUM CHLORIDE 10 ML SYRINGE IV SCH ×3 (04:52→20:04)
[2020-10-22 07:07] LABS: Basophils # (Auto) 0.01 K/mcL (0.00-0.30); Basophils % (Auto) 0.1 % (0.0-2.0); Eosinophils # (Auto) 0 K/mcL (0.00-0.70); Eosinophils % (Auto) 0 % (0.0-7.0); Hematocrit 34.8 % (34.1-44.9); Hemoglobin 10.7 g/dL (11.2-15.7); Lymphocytes % (Auto) 7.5 % (15.5-49.0); Mean Cell Volume 78.4 fL (80.0-100.0); Mean Corpuscular HGB Conc 30.7 g/dL (31.0-36.0); Mean Platelet Volume 9.7 fL (7.4-10.4); Monocytes # (Auto) 0.57 K/mcL (0.10-0.90); Monocytes % (Auto) 7.1 % (1.0-12.0); Neutrophils % (Auto) 85.3 % (38.0-78.0); Platelet Count 366 K/mcL (140-440); RBC 4.44 M/mcL (3.59-5.38); Red Cell Distribution Width 15.1 % (11.5-14.5)
[2020-10-22] MEDS: INSULIN LISPRO 1 UNIT/0.01 ML UNIT SQ SCH ×4 (07:37→20:03)
[2020-10-22 08:03] LABS: ALT/SGPT 26 U/L (<40); AST/SGOT 47 U/L (<32); Albumin 2.6 gm/dL (3.2-5.2); Albumin/Globulin Ratio 0.7 (1.0-2.3); Alkaline Phosphatase 75 U/L (39-117); Bilirubin,Total 0.4 mg/dL (0.1-1.0); Blood Urea Nitrogen 26 mg/dL (8-23); Calcium 9.6 mg/dL (8.6-10.4); Carbon Dioxide 20 mmol/L (22-30); Chloride 100 mmol/L (96-108); Globulin 3.8 gm/dL (2.2-3.7); Glomerular Filtration Rate 40; Glucose 154 mg/dL (70-105)
[2020-10-22] MEDS: IPRATROPIUM/ALBUTEROL 3 ML AMPUL.NEB NEB SCH ×3 (08:17→23:18)
[2020-10-22] MEDS: INSULIN GLARGINE, HUMAN 1 UNIT/0.01 ML SQ SCH (09:00)
[2020-10-22] MEDS: ENOXAPARIN 40 MG/0.4 ML SYRINGE SQ SCH ×2 (09:00→20:02)
[2020-10-22] MEDS: LOSARTAN 50 MG TABLET PO SCH (09:00)
[2020-10-22] MEDS: DEXAMETHASONE 4 MG TABLET PO SCH (09:01)
[2020-10-22] MEDS: CITALOPRAM 20 MG TABLET PO SCH (09:02)
[2020-10-22] MEDS: DOCUSATE SODIUM 100 MG CAPSULE PO SCH ×2 (09:02→20:02)
[2020-10-22] MEDS: GABAPENTIN 100 MG CAPSULE PO SCH (09:03)
[2020-10-22] MEDS: FUROSEMIDE 40 MG TABLET PO SCH (09:03)
[2020-10-22] MEDS: METOPROLOL SUCCINATE 50 MG TAB.XL.24H PO SCH ×2 (09:03→20:02)
[2020-10-22] MEDS: DIPYRIDAMOLE 25 MG TABLET PO SCH ×4 (09:03→20:03)
[2020-10-22] MEDS: OXYBUTYNIN CHLORIDE 5 MG TABLET PO SCH (09:03)
[2020-10-22] MEDS: ASPIRIN 81 MG TAB.CHEW PO SCH (09:03)
[2020-10-22] MEDS: amLODIPine 5 MG TABLET PO SCH (09:03)
[2020-10-22] MEDS: REMDESIVIR 100 MG in 0.9 % SODIUM CHLORIDE 250 ML IV SCH (13:05)
--- NOTE | 2020-10-22 14:17 | Internal Med Progress Note ---
SUBJECTIVE Subjective Patient information: Note initiated : 10/22/20 at 2:09 pm Service Date, if different from initiated Date: [] Patient: Sharla Michaels a 75 y/o F admitted on 10/19/20 for COVID POSITIVE, SOB. Chief Complaint: [CoVID pneumonia] History of present illness: Ms. Michaels is a 75 year old F Patient presents to the ED with shortness of breath cough fever chills. Patient says she has been ill for about 5 days she came in yesterday and was found to be Covid positive she was offered monoclonal antibodies but refused. She is unvaccinated and says she did get vaccinated because she does not drive. Ms Michaels is yet another unvaccinated patient presenting with Covid pneumonia. She has a history of diabetes stroke vascular disease including CAD has obesity and smokes as well as has COPD. In the ED she was hypoxic in the upper 80s on room air put on several liters oxygen. 10/20 Patient feels a little bit better. Says her shortness of breath is better but still present. However nurse had to titrate to 2 to 4 L and she got up to the bedside this morning. Has productive cough. 10/21 Cough present. She says her breathing is improved today. Still requiring 4 to 5 L of oxygen. Sodium within normal limits. cr 1.4. 10/22: Been on 5L oxygen overnight. Afebrile overnight. c/o shortness of breath. c/o productive cough with white sputum. Denies wheezing. Denies chest pain. Denies f ever or chill or sweating. Denies general body weakness. Constitutional Vitals: Vital Signs Temp Pulse Resp BP Pulse Ox 36.7 C 74 22 130/70 90 10/22/20 12:00 10/22/20 12:00 10/22/20 12:00 10/22/20 12:00 10/22/20 12:00 Period Temp Pulse Resp BP Sys/Tai Pulse Ox Last 24 Hr 36.7 C-37.4 C 66-78 20-24 130-158/58-78 90-91 Intake and Output 10/22/20 10/22/20 10/22/20 05:59 13:59 21:59 Intake Total 580 Output Total 600 400 Balance -600 180 Intake & Output: Intake & Output 10/22/20 10/22/2010/22/21 05:59 13:59 21:59 Intake Total 580 Output Total 600 400 Balance -600 180 Intake: Nourishment/Supplement quantity 240 (ml) Oral 340 Output: Void Amount 600 400 Other: Meal Nourishment/Supplement Percent of Meal Consumed 25% Feeding Ability Assist with Tray Set Up Nourishment/Supplement name jorge luis Urine Color Straw Urine Odor Normal General appearance: cooperative and no acute distress Head Head exam: Present atraumatic and normocephalic Eye Eye exam: Present EOMI and PERRL ENT ENT exam: Present mucous membranes moist, normal exam and normal external ear exam Additional comments: Nasal cannula in place Neck Neck exam: Present normal inspection; Absent lymphadenopathy, tenderness and thyromegaly Respiratory Respiratory exam: Present rhonchi and wheezes; Absent accessory muscle use and respiratory distress Cardiovascular Cardiovascular exam: Present normal rate and rhythm; Absent JVD GI/Abdominal GI/Abdominal exam: Present normal bowel sounds and soft; Absent organomegaly and tenderness Extremities Exam Extremities exam: Present full ROM, normal capillary refill and normal inspection; Absent tenderness Neurological Exam Neurological exam: Present alert, CN II-XII intact and oriented X3; Absent motor sensory deficit Psychiatric Psychiatric exam: Present normal affect and normal mood; Absent anxious and depressed Skin Skin exam: Present dry and intact OBJ DATA Labs CBC & Chem 7: 10/22/20 05:41 10/22/20 05:41 Labs: Abnormal Lab Results 10/22/20 10/22/20 10/21/20 05:41 05:41 06:12 WBC Hgb 10.7 L Hct MCV 78.4 L MCH 24.1 L MCHC 30.7 L RDW 15.1 H Neut % (Auto) 85.3 H Lymph % (Auto) 7.5 L Lymph # (Auto) 0.60 L Seg Neutrophils % Lymphocytes % Absolute Neutrophils RBC Morphology Anisocytosis VBG Lactic Acid Sodium 131 L Chloride Carbon Dioxide 20 L 20 L Anion Gap BUN 26 H 28 H Creatinine 1.3 H 1.4 H Glucose 154 H 143 H Hemoglobin A1c Uric Acid 8.1 H Phosphorus AST 47 H 51 H Lactate Dehydrogenase 377 H C-Reactive Protein NT-Pro-B Natriuret Pep Albumin 2.6 L 2.7 L Albumin/Globulin Ratio 0.7 L 0.8 L Globulin 3.8 H Procalcitonin 0810/20/20 10/20/20 06:12 06:09 06:09 WBC 3.4 L Hgb 10.3 L 9.6 L Hct 32.5 L 30.6 L MCV 77.9 L 77.3 L MCH 24.7 L 24.2 L MCHC RDW 14.9 H 14.7 H Neut % (Auto) 88.8 H Lymph % (Auto) 6.1 L Lymph # (Auto) 0.59 L Seg Neutrophils % 89 H Lymphocytes % 9 L Absolute Neutrophils 8.55 H RBC Morphology Abnormal A Anisocytosis 1+ A VBG Lactic Acid Sodium 130 L Chloride Carbon Dioxide 20 L Anion Gap BUN Creatinine 1.6 H Glucose 357 H Hemoglobin A1c 10.2 H Uric Acid Phosphorus 2.4 L AST 50 H Lactate Dehydrogenase 285 H C-Reactive Protein 16.70 H NT-Pro-B Natriuret Pep Albumin Albumin/Globulin Ratio Globulin Procalcitonin 10/19/20 10/19/20 10/19/20 21:40 19:25 19:25 WBC Hgb Hct MCV MCH MCHC RDW Neut % (Auto) Lymph % (Auto) Lymph # (Auto) Seg Neutrophils % Lymphocytes % Absolute Neutrophils RBC Morphology Anisocytosis VBG Lactic Acid < 0.2 L Sodium Chloride Carbon Dioxide Anion Gap BUN Creatinine Glucose Hemoglobin A1c Uric Acid Phosphorus AST Lactate Dehydrogenase C-Reactive Protein 14.50 H NT-Pro-B Natriuret Pep Albumin Albumin/Globulin Ratio Globulin Procalcitonin 0.15 H 10/19/20 10/19/20 19:25 19:25 WBC Hgb 10.9 L Hct MCV 77.1 L MCH 24.7 L MCHC RDW 14.6 H Neut % (Auto) Lymph % (Auto) Lymph # (Auto) Seg Neutrophils % 85 H Lymphocytes % 10 L Absolute Neutrophils RBC Morphology Abnormal A Anisocytosis 1+ A VBG Lactic Acid Sodium 131 L Chloride 94 L Carbon Dioxide 19 L Anion Gap 18.0 H BUN Creatinine 1.6 H Glucose 160 H Hemoglobin A1c Uric Acid Phosphorus AST 59 H Lactate Dehydrogenase C-Reactive Protein NT-Pro-B Natriuret Pep 1004.0 H Albumin Albumin/Globulin Ratio Globulin Procalcitonin Meds: Medications Acetaminophen (Acetaminophen 325 Mg Tablet) 650 mg PO Q6HP PRN PRN Reason: PAIN/FEVER > 101 Last Admin: 10/21/20 02:37 Dose: 650 mg Documented by: Albuterol/Ipratropium (Ipratropium/Albuterol 3 Ml Ampul.Neb) 3 ml NEB Q4HP PRN PRN Reason: Shortness Of Breath Albuterol/Ipratropium (Ipratropium/Albuterol 3 Ml Ampul.Neb) 3 ml NEB Q8H [facility] Last Admin: 10/22/20 08:17 Dose: 3 ml Documented by: Amlodipine Besylate (Amlodipine 5 Mg Tablet) 5 mg PO QDAY [facility] Last Admin: 10/22/20 09:03 Dose: 5 mg Documented by: Aspirin (Aspirin 81 Mg Tab.Chew) 81 mg PO QDAY [facility] Last Admin: 10/22/20 09:03 Dose: 81 mg Documented by: Citalopram Hydrobromide (Citalopram 20 Mg Tablet) 40 mg PO DAILY [facility] Last Admin: 10/22/20 09:02 Dose: 40 mg Documented by: Dexamethasone (Dexamethasone 4 Mg Tablet) 6 mg PO DAILY [facility] Last Admin: 10/22/20 09:01 Dose: 6 mg Documented by: Dextrose (Dextrose 50% 50 Ml Vial) 0 ml IV UD PRN PRN Reason: Hypoglycemia Diagnostic Test (Pha) (Accu-Chek 1 Each Strip) 1 each FS ACHS [facility] Last Admin: 10/22/20 11:38 Dose: 1 each Documented by: Dipyridamole (Dipyridamole 25 Mg Tablet) 50 mg PO QID [facility] Last Admin: 10/22/20 13:05 Dose: 50 mg Documented by: Docusate Sodium (Docusate Sodium 100 Mg Capsule) 100 mg PO BID [facility] Last Admin: 10/22/20 09:02 Dose: 100 mg Documented by: Enoxaparin Sodium (Enoxaparin 40 Mg/0.4 Ml Syringe) 40 mg SQ BID [facility] Last Admin: 10/22/20 09:00 Dose: 40 mg Documented by: Furosemide (Furosemide 40 Mg Tablet) 40 mg PO DAILY [facility] Last Admin: 10/22/20 09:03 Dose: 40 mg Documented by: Gabapentin (Gabapentin 100 Mg Capsule) 100 mg PO QDAY [facility] Last Admin: 10/22/20 09:03 Dose: 100 mg Documented by: Glucose (Dextrose 31 Gm Oral.Susp) 15 gm PO PRN PRN PRN Reason: Hypoglycemia Potassium Chloride 40 meq/ (Dextrose) 520 mls @ 130 mls/hr IV UD PRN PRN Reason: Potassium < 3 Magnesium Sulfate (Magnesium Sulfate) 2 gm in 50 mls @ 50 mls/hr IV UD PRN PRN Reason: Magnesium </= 1.6 REMDESIVIR 100 mg/ Sodium (Chloride) 250 mls @ 500 mls/hr IV Q24H [facility] Stop: 10/23/20 13:29 Last Admin: 10/22/20 13:05 Dose: 500 mls/hr Documented by: Insulin Glargine (Insulin Glargine, Human 1 Unit/0.01 Ml) [facility] Last Admin: 10/22/20 09:00 Dose: 30 unit Documented by: Insulin Human Lispro (Insulin Lispro 1 Unit/0.01 Ml Unit) 0 unit SQ [facility]; Protocol Last Admin: 10/22/20 11:40 Dose: 6 unit Documented by: Losartan Potassium (Losartan 50 Mg Tablet) 100 mg PO QDAY [facility] Last Admin: 10/22/20 09:00 Dose: 100 mg Documented by: Metoprolol Succinate (Metoprolol Succinate 50 Mg Tab.Xl.24h) 50 mg PO BID [facility] Last Admin: 10/22/20 09:03 Dose: 50 mg Documented by: Ondansetron HCl (Ondansetron 4 Mg/2 Ml Vial) 4 mg IV Q4HP PRN PRN Reason: Nausea And Vomiting Oxybutynin Chloride (Oxybutynin Chloride 5 Mg Tablet) 5 mg PO QDAY [facility] Last Admin: 10/22/20 09:03 Dose: 5 mg Documented by: Polyethylene Glycol (Polyethylene Glycol 3350 17 Gm Packet) 17 gm PO DAILYP PRN PRN Reason: Constipation Potassium Chloride (Potassium Chloride 20 Meq Tablet) 40 meq PO UD PRN PRN Reason: Potssium is 3-3.5 Potassium Chloride (Potassium Chloride 20 Meq Tablet) 40 meq PO UD PRN PRN Reason: Potassium < 3 Pravastatin Sodium (Pravastatin 40 Mg Tablet) 40 mg PO HS [facility] Last Admin: 10/21/20 20:46 Dose: 40 mg Documented by: Senna (Sennosides 1 Tablet) 2 tab PO DAILYP PRN PRN Reason: Constipation Sodium Chloride (0.9 % Sodium Chloride 10 Ml Syringe) 10 ml IV Q8 [facility] Last Admin: 10/22/20 13:06 Dose: 10 ml Documented by: Trazodone HCl (Trazodone Hcl 50 Mg Tablet) 50 mg PO QHS PRN PRN Reason: Sleep A/P Assessment and plan (1) Hypochromic microcytic anemia: Status: Acute (2) COVID-19: Status: Acute (3) COPD (chronic obstructive pulmonary disease): Status: Acute (4) Essential (primary) hypertension: Status: Acute (5) Mixed dyslipidemia: Status: Acute (6) Depression: Status: Acute Narrative A/P Narrative: Assessment and Plans: 1. CoVID pneumonia: Stays in inpatient med surg telemetry Isolation: airborne and contact Supplemental oxygen titrate to achieve spo2 >=88% given h/o COPD Remdesivir Dexamethasone PO Lovenox Lasix cbc w/ auto diff in the morning to trend WBC 2. h/o COPD, stable: Home oxygen requirement 4-5L/min Continue bronchodilators PRN wheezing Dexamethasone PO 3. Anemia, microcytic hypochromic: cbc w/ auto diff in the morning to trend H/H; transfuse pRBC if hemoglobin <7.0, active bleeding, or symptomatic 4. Essential HTN: Currently normotensive Continue Metoprolol succinate Amoldipine and Losartan Lasix 5. Depression: Citalopram GI ppx: not currently indicated DVT ppx: Lovenox Code status: Full Prognosis: guarded Disposition: inpatient med surg Time Spent With Patient Time: Total time spent is greater than 50% in coordination of care (as documented) at patient's floor/unit and/or counseling patient: Total time spent with greater than 50% in coordination of care (as documented) at patient's floor/unit and/or counseling patient:: 25 - 35 minutes
--- NOTE | 2020-10-22 15:10 | XRay Report ---
CLINICAL INFORMATION: covid pneumonia COMPARISON: 10/19/2020 FINDINGS: Mild cardiomegaly is unchanged. Sternotomy changes noted. Mediastinum and pulmonary vessels are unremarkable. Moderate patchy infiltrates throughout both lungs show slight progression. No effusion. IMPRESSION: Moderate patchy infiltrates throughout both show slight progression from the comparison exam three days ago. Interpreted and Authenticated by: Chad Richmond 10/22/20
[2020-10-22] MEDS: PRAVASTATIN 40 MG TABLET PO SCH (20:02)
[2020-10-23] MEDS: IPRATROPIUM/ALBUTEROL 3 ML AMPUL.NEB NEB SCH ×3 (06:48→23:14)
[2020-10-23] MEDS: 0.9 % SODIUM CHLORIDE 10 ML SYRINGE IV SCH ×3 (07:05→21:32)
[2020-10-23] MEDS: INSULIN LISPRO 1 UNIT/0.01 ML UNIT SQ SCH ×4 (07:20→21:32)
[2020-10-23 07:50] LABS: Basophils # (Auto) 0 K/mcL (0.00-0.30); Basophils % (Auto) 0 % (0.0-2.0); Eosinophils # (Auto) 0 K/mcL (0.00-0.70); Eosinophils % (Auto) 0 % (0.0-7.0); Hematocrit 35.3 % (34.1-44.9); Lymphocytes # (Auto) 0.71 K/mcL (1.50-4.80); Lymphocytes % (Auto) 7.9 % (15.5-49.0); Mean Cell Volume 78.1 fL (80.0-100.0); Mean Corpuscular HGB Conc 31.2 g/dL (31.0-36.0); Mean Platelet Volume 9.7 fL (7.4-10.4); Monocytes # (Auto) 0.65 K/mcL (0.10-0.90); Monocytes % (Auto) 7.2 % (1.0-12.0); Neutrophils % (Auto) 84.9 % (38.0-78.0); Platelet Count 373 K/mcL (140-440); RBC 4.52 M/mcL (3.59-5.38); Red Cell Distribution Width 14.8 % (11.5-14.5)
--- NOTE | 2020-10-23 08:16 | Internal Med Progress Note ---
SUBJECTIVE Subjective Patient information: Note initiated : 10/23/20 at 8:12 am Service Date, if different from initiated Date: [] Patient: Sharla Michaels a 75 y/o F admitted on 10/19/20 for COVID POSITIVE, SOB. Chief Complaint: [CoVID pneumonia] History of present illness: Ms. Michaels is a 75 year old F Patient presents to the ED with shortness of breath cough fever chills. Patient says she has been ill for about 5 days she came in yesterday and was found to be Covid positive she was offered monoclonal antibodies but refused. She is unvaccinated and says she did get vaccinated because she does not drive. Ms Michaels is yet another unvaccinated patient presenting with Covid pneumonia. She has a history of diabetes stroke vascular disease including CAD has obesity and smokes as well as has COPD. In the ED she was hypoxic in the upper 80s on room air put on several liters oxygen. 10/20 Patient feels a little bit better. Says her shortness of breath is better but still present. However nurse had to titrate to 2 to 4 L and she got up to the bedside this morning. Has productive cough. 10/21 Cough present. She says her breathing is improved today. Still requiring 4 to 5 L of oxygen. Sodium within normal limits. cr 1.4. 10/22: Been on 5L oxygen overnight. Afebrile overnight. c/o shortness of breath. c/o productive cough with white sputum. Denies wheezing. Denies chest pain. Denies fever or chill or sweating. Denies general body weakness. 10/23: Desaturated to mid 80s spo2 despite 10L oxygen. Afebrile overnight. Patient is c/o worsening SOB. c/o nonproductive cough. Denies wheezing. Denies fever or chills or sweating. Constitutional Vitals: Vital Signs Temp Pulse Resp BP Pulse Ox 36.3 C 84 22 142/74 88 L 10/23/20 07:30 10/23/20 07:30 10/23/20 07:30 10/23/20 07:30 10/23/20 07:30 Period Temp Pulse Resp BP Sys/Tai Pulse Ox Last 24 Hr 35.9 C-36.9 C 61-84 20-24 130-142/68-74 88-93 Intake and Output 10/22/20 10/23/20 10/23/20 21:59 05:59 13:59 Intake Total 240 300 Output Total 701 Balance -461 300 Weight 80.649 kg Intake & Output: Intake & Output 10/22/20 10/23/20 10/23/20 21:59 05:59 13:59 Intake Total 240 300 Output Total 701 Balance -461 300 Weight 80.649 kg Intake: Oral 240 300 Output: Void Amount 700 # of times incontinent of urine 1 Other: Urine Appearance Clear Urine Color Pale General appearance: cooperative and no acute distress Head Head exam: Present atraumatic and normocephalic Eye Eye exam: Present EOMI and PERRL ENT ENT exam: Present mucous membranes moist, normal exam and normal external ear exam Additional comments: High flow oxygen in place Neck Neck exam: Present normal inspection; Absent lymphadenopathy, tenderness and thyromegaly Respiratory Respiratory exam: Present decreased breath sounds and rhonchi; Absent accessory muscle use, respiratory distress and wheezes Cardiovascular Cardiovascular exam: Present normal rate and rhythm; Absent JVD GI/Abdominal GI/Abdominal exam: Present normal bowel sounds and soft; Absent organomegaly and tenderness Extremities Exam Extremities exam: Present full ROM, normal capillary refill and normal insp ection; Absent tenderness Neurological Exam Neurological exam: Present alert, CN II-XII intact and oriented X3; Absent motor sensory deficit Psychiatric Psychiatric exam: Present normal affect and normal mood; Absent anxious and depressed Skin Skin exam: Present dry and intact OBJ DATA Labs CBC & Chem 7: 10/23/20 06:03 10/22/20 05:41 Labs: Abnormal Lab Results 10/23/20 10/22/20 10/22/20 06:03 05:41 05:41 Hgb 11.0 L 10.7 L Hct MCV 78.1 L 78.4 L MCH 24.3 L 24.1 L MCHC 30.7 L RDW 14.8 H 15.1 H Neut % (Auto) 84.9 H 85.3 H Lymph % (Auto) 7.9 L 7.5 L Lymph # (Auto) 0.71 L 0.60 L Seg Neutrophils % Lymphocytes % Absolute Neutrophils RBC Morphology Anisocytosis Sodium 131 L Carbon Dioxide 20 L BUN 26 H Creatinine 1.3 H Glucose 154 H Hemoglobin A1c Uric Acid Phosphorus AST 47 H Lactate Dehydrogenase C-Reactive Protein Albumin 2.6 L Albumin/Globulin Ratio 0.7 L Globulin 3.8 H 10/21/20 10/21/20 10/20/20 06:12 06:12 06:09 Hgb 10.3 L Hct 32.5 L MCV 77.9 L MCH 24.7 L MCHC RDW 14.9 H Neut % (Auto) 88.8 H Lymph % (Auto) 6.1 L Lymph # (Auto) 0.59 L Seg Neutrophils % Lymphocytes % Absolute Neutrophils 8.55 H RBC Morphology Anisocytosis Sodium 130 L Carbon Dioxide 20 L 20 L BUN 28 H Creatinine 1.4 H 1.6 H Glucose 143 H 357 H Hemoglobin A1c 10.2 H Uric Acid 8.1 H Phosphorus 2.4 L AST 51 H 50 H Lactate Dehydrogenase 377 H 285 H C-Reactive Protein 16.70 H Albumin 2.7 L Albumin/Globulin Ratio 0.8 L Globulin 10/20/20 06:09 Hgb Hct MCV MCH MCHC RDW Neut % (Auto) Lymph % (Auto) Lymph # (Auto) Seg Neutrophils % 89 H Lymphocytes % 9 L Absolute Neutrophils RBC Morphology Abnormal A Anisocytosis 1+ A Sodium Carbon Dioxide BUN Creatinine Glucose Hemoglobin A1c Uric Acid Phosphorus AST Lactate Dehydrogenase C-Reactive Protein Albumin Albumin/Globulin Ratio Globulin Meds: Medications Acetaminophen (Acetaminophen 325 Mg Tablet) 650 mg PO Q6HP PRN PRN Reason: PAIN/FEVER > 101 Last Admin: 10/21/20 02:37 Dose: 650 mg Documented by: Albuterol/Ipratropium (Ipratropium/Albuterol 3 Ml Ampul.Neb) 3 ml NEB Q4HP PRN PRN Reason: Shortness Of Breath Albuterol/Ipratropium (Ipratropium/Albuterol 3 Ml Ampul.Neb) 3 ml NEB Q8H [facility] Last Admin: 10/23/20 06:48 Dose: 3 ml Documented by: Amlodipine Besylate (Amlodipine 5 Mg Tablet) 5 mg PO QDAY [facility] Last Admin: 10/22/20 09:03 Dose: 5 mg Documented by: Aspirin (Aspirin 81 Mg Tab.Chew) 81 mg PO QDAY [facility] Last Admin: 10/22/20 09:03 Dose: 81 mg Documented by: Citalopram Hydrobromide (Citalopram 20 Mg Tablet) 40 mg PO DAILY [facility] Last Admin: 10/22/20 09:02 Dose: 40 mg Documented by: Dexamethasone (Dexamethasone 4 Mg Tablet) 6 mg PO DAILY [facility] Last Admin: 10/22/20 09:01 Dose: 6 mg Documented by: Dextrose (Dextrose 50% 50 Ml Vial) 0 ml IV UD PRN PRN Reason: Hypoglycemia Diagnostic Test (Pha) (Accu-Chek 1 Each Strip) 1 each FS ACHS [facility] Last Admin: 10/23/20 07:04 Dose: 1 each Documented by: Dipyridamole (Dipyridamole 25 Mg Tablet) 50 mg PO QID [facility] Last Admin: 10/22/20 20:03 Dose: 50 mg Documented by: Docusate Sodium (Docusate Sodium 100 Mg Capsule) 100 mg PO BID [facility] Last Admin: 10/22/20 20:02 Dose: 100 mg Documented by: Enoxaparin Sodium (Enoxaparin 40 Mg/0.4 Ml Syringe) 40 mg SQ BID [facility] Last Admin: 10/22/20 20:02 Dose: 40 mg Documented by: Furosemide (Furosemide 40 Mg Tablet) 40 mg PO DAILY [facility] Last Admin: 10/22/20 09:03 Dose: 40 mg Documented by: Gabapentin (Gabapentin 100 Mg Capsule) 100 mg PO QDAY [facility] Last Admin: 10/22/20 09:03 Dose: 100 mg Documented by: Glucose (Dextrose 31 Gm Oral.Susp) 15 gm PO PRN PRN PRN Reason: Hypoglycemia Potassium Chloride 40 meq/ (Dextrose) 520 mls @ 130 mls/hr IV UD PRN PRN Reason: Potassium < 3 Magnesium Sulfate (Magnesium Sulfate) 2 gm in 50 mls @ 50 mls/hr IV UD PRN PRN Reason: Magnesium </= 1.6 REMDESIVIR 100 mg/ Sodium (Chloride) 250 mls @ 500 mls/hr IV Q24H [facility] Stop: 10/23/20 13:29 Last Infusion: 10/22/20 13:35 Dose: Infused Documented by: Insulin Glargine (Insulin Glargine, Human 1 Unit/0.01 Ml) [facility] Last Admin: 10/22/20 09:00 Dose: 30 unit Documented by: Insulin Human Lispro (Insulin Lispro 1 Unit/0.01 Ml Unit) 0 unit SQ ACHS [facility]; Protocol Last Admin: 10/23/20 07:20 Dose: 4 unit Documented by: Losartan Potassium (Losartan 50 Mg Tablet) 100 mg PO QDAY [facility] Last Admin: 10/22/20 09:00 Dose: 100 mg Documented by: Metoprolol Succinate (Metoprolol Succinate 50 Mg Tab.Xl.24h) 50 mg PO BID [facility] Last Admin: 10/22/20 20:02 Dose: 50 mg Documented by: Ondansetron HCl (Ondansetron 4 Mg/2 Ml Vial) 4 mg IV Q4HP PRN PRN Reason: Nausea And Vomiting Oxybutynin Chloride (Oxybutynin Chloride 5 Mg Tablet) 5 mg PO QDAY [facility] Last Admin: 10/22/20 09:03 Dose: 5 mg Documented by: Polyethylene Glycol (Polyethylene Glycol 3350 17 Gm Packet) 17 gm PO DAILYP PRN PRN Reason: Constipation Potassium Chloride (Potassium Chloride 20 Meq Tablet) 40 meq PO UD PRN PRN Reason: Potssium is 3-3.5 Potassium Chloride (Potassium Chloride 20 Meq Tablet) 40 meq PO UD PRN PRN Reason: Potassium < 3 Pravastatin Sodium (Pravastatin 40 Mg Tablet) 40 mg PO HS [facility] Last Admin: 10/22/20 20:02 Dose: 40 mg Documented by: Senna (Sennosides 1 Tablet) 2 tab PO DAILYP PRN PRN Reason: Constipation Sodium Chloride (0.9 % Sodium Chloride 10 Ml Syringe) 10 ml IV Q8 [facility] Last Admin: 10/23/20 07:05 Dose: 10 ml Documented by: Trazodone HCl (Trazodone Hcl 50 Mg Tablet) 50 mg PO QHS PRN PRN Reason: Sleep A/P Assessment and plan (1) Hypochromic microcytic anemia: Status: Acute (2) COVID-19: Status: Acute (3) COPD (chronic obstructive pulmonary disease): Status: Acute (4) Essential (primary) hypertension: Status: Acute (5) Mixed dyslipidemia: Status: Acute (6) Depression: Status: Acute Narrative A/P Narrative: Assessment and Plans: 1. CoVID pneumonia: Transfer to inpatient PCU Isolation: airborne and contact Supplemental oxygen titrate to achieve spo2 >=88% given h/o COPD, now with high flow oxygen. If needed, will upgrade to BiPAP, then finally intubation Remdesivir Dexamethasone PO Lovenox Lasix cbc w/ auto diff in the morning to trend WBC 2. h/o COPD, stable: Home oxygen requirement 4-5L/min Continue bronchodilators PRN wheezing Dexamethasone PO 3. Anemia, microcytic hypochromic: cbc w/ auto diff in the morning to trend H/H; transfuse pRBC if hemoglobin <7.0, active bleeding, or symptomatic 4. Essential HTN: Currently normotensive Continue Metoprolol succinate Amoldipine and Losartan Lasix 5. Depression: Citalopram GI ppx: not currently indicated DVT ppx: Lovenox Code status: Full Prognosis: extremely guarded Disposition: inpatient PCU Time Spent With Patient Time: Total time spent is greater than 50% in coordination of care (as documented) at patient's floor/unit and/or counseling patient:
[2020-10-23 08:20] LABS: ALT/SGPT 26 U/L (<40); AST/SGOT 35 U/L (<32); Albumin 2.7 gm/dL (3.2-5.2); Albumin/Globulin Ratio 0.7 (1.0-2.3); Alkaline Phosphatase 84 U/L (39-117); Bilirubin,Total 0.5 mg/dL (0.1-1.0); Blood Urea Nitrogen 28 mg/dL (8-23); Calcium 9.6 mg/dL (8.6-10.4); Carbon Dioxide 20 mmol/L (22-30); Chloride 99 mmol/L (96-108); Globulin 3.8 gm/dL (2.2-3.7); Glomerular Filtration Rate 45; Glucose 187 mg/dL (70-105)
[2020-10-23] MEDS ORDERED: POTASSIUM CHLORIDE 20 MEQ TABLET PO PRN ×2 (09:33)
[2020-10-23] MEDS ORDERED: DEXTROSE 31 GM ORAL.SUSP PO PRN (09:33)
[2020-10-23] MEDS ORDERED: DEXTROSE 50% 50 ML VIAL IV PRN (09:33)
[2020-10-23] MEDS ORDERED: POTASSIUM CHLORIDE 40 MEQ in DEXTROSE 5% IN WATER 500 ML IV PRN (09:33)
[2020-10-23] MEDS ORDERED: MAGNESIUM SULFATE 2 GM/50 ML BAG IV PRN (09:33)
[2020-10-23] MEDS ORDERED: ONDANSETRON 4 MG/2 ML VIAL IV PRN (09:33)
[2020-10-23] MEDS: ASPIRIN 81 MG TAB.CHEW PO SCH ×2 (09:59→11:29)
[2020-10-23] MEDS: CITALOPRAM 20 MG TABLET PO SCH ×2 (09:59→11:29)
[2020-10-23] MEDS: FUROSEMIDE 40 MG TABLET PO SCH ×2 (10:00→11:30)
[2020-10-23] MEDS: LOSARTAN 50 MG TABLET PO SCH ×2 (10:00→11:30)
[2020-10-23] MEDS: ENOXAPARIN 40 MG/0.4 ML SYRINGE SQ SCH ×3 (10:00→20:51)
[2020-10-23] MEDS: INSULIN GLARGINE, HUMAN 1 UNIT/0.01 ML SQ SCH ×2 (10:00→11:27)
[2020-10-23] MEDS: DEXAMETHASONE 4 MG TABLET PO SCH ×2 (10:00→11:31)
[2020-10-23] MEDS: DIPYRIDAMOLE 25 MG TABLET PO SCH ×5 (10:00→20:51)
[2020-10-23] MEDS: DOCUSATE SODIUM 100 MG CAPSULE PO SCH ×3 (10:00→20:50)
[2020-10-23] MEDS: OXYBUTYNIN CHLORIDE 5 MG TABLET PO SCH ×2 (10:00→11:42)
[2020-10-23] MEDS: amLODIPine 5 MG TABLET PO SCH ×2 (10:01→11:32)
[2020-10-23] MEDS: METOPROLOL SUCCINATE 50 MG TAB.XL.24H PO SCH ×3 (10:01→20:51)
[2020-10-23] MEDS: GABAPENTIN 100 MG CAPSULE PO SCH ×2 (10:01→11:31)
[2020-10-23] MEDS ORDERED: REMDESIVIR 100 MG in 0.9 % SODIUM CHLORIDE 250 ML IV SCH (13:00)
[2020-10-23] MEDS: PRAVASTATIN 40 MG TABLET PO SCH (20:54)
[2020-10-24] MEDS: 0.9 % SODIUM CHLORIDE 10 ML SYRINGE IV SCH ×2 (05:38→15:50)
[2020-10-24] MEDS: IPRATROPIUM/ALBUTEROL 3 ML AMPUL.NEB NEB SCH ×3 (05:38→22:07)
[2020-10-24 07:56] LABS: Basophils # (Auto) 0.01 K/mcL (0.00-0.30); Basophils % (Auto) 0.1 % (0.0-2.0); Eosinophils # (Auto) 0 K/mcL (0.00-0.70); Eosinophils % (Auto) 0 % (0.0-7.0); Hematocrit 35.9 % (34.1-44.9); Hemoglobin 11.3 g/dL (11.2-15.7); Lymphocytes # (Auto) 0.67 K/mcL (1.50-4.80); Lymphocytes % (Auto) 6.7 % (15.5-49.0); Mean Cell Volume 76.1 fL (80.0-100.0); Mean Corpuscular HGB Conc 31.5 g/dL (31.0-36.0); Mean Platelet Volume 9.9 fL (7.4-10.4); Monocytes # (Auto) 0.59 K/mcL (0.10-0.90); Monocytes % (Auto) 5.9 % (1.0-12.0); Neutrophils % (Auto) 87.3 % (38.0-78.0); Platelet Count 403 K/mcL (140-440); RBC 4.72 M/mcL (3.59-5.38); Red Cell Distribution Width 14.6 % (11.5-14.5)
[2020-10-24] MEDS: INSULIN LISPRO 1 UNIT/0.01 ML UNIT SQ SCH ×4 (08:36→20:56)
[2020-10-24] MEDS: INSULIN GLARGINE, HUMAN 1 UNIT/0.01 ML SQ SCH (08:37)
[2020-10-24] MEDS: amLODIPine 5 MG TABLET PO SCH (08:40)
[2020-10-24] MEDS: ASPIRIN 81 MG TAB.CHEW PO SCH (08:41)
[2020-10-24] MEDS: DEXAMETHASONE 4 MG TABLET PO SCH (08:41)
[2020-10-24] MEDS: LOSARTAN 50 MG TABLET PO SCH (08:41)
[2020-10-24] MEDS: DOCUSATE SODIUM 100 MG CAPSULE PO SCH ×2 (08:41→20:43)
[2020-10-24] MEDS: CITALOPRAM 20 MG TABLET PO SCH (08:42)
[2020-10-24] MEDS: GABAPENTIN 100 MG CAPSULE PO SCH (08:42)
[2020-10-24] MEDS: FUROSEMIDE 40 MG TABLET PO SCH (08:42)
[2020-10-24] MEDS: METOPROLOL SUCCINATE 50 MG TAB.XL.24H PO SCH ×2 (08:43→20:43)
[2020-10-24] MEDS: ENOXAPARIN 40 MG/0.4 ML SYRINGE SQ SCH ×2 (08:43→20:43)
[2020-10-24] MEDS: OXYBUTYNIN CHLORIDE 5 MG TABLET PO SCH (08:48)
[2020-10-24] MEDS: SENNOSIDES 1 TABLET PO PRN (08:48)
[2020-10-24] MEDS: DIPYRIDAMOLE 25 MG TABLET PO SCH ×4 (08:49→20:43)
[2020-10-24 08:50] LABS: ALT/SGPT 23 U/L (<40); AST/SGOT 27 U/L (<32); Albumin 2.9 gm/dL (3.2-5.2); Albumin/Globulin Ratio 0.8 (1.0-2.3); Alkaline Phosphatase 81 U/L (39-117); Bilirubin,Total 0.6 mg/dL (0.1-1.0); Blood Urea Nitrogen 30 mg/dL (8-23); Calcium 9.7 mg/dL (8.6-10.4); Carbon Dioxide 24 mmol/L (22-30); Chloride 95 mmol/L (96-108); Globulin 3.8 gm/dL (2.2-3.7); Glomerular Filtration Rate 37; Glucose 123 mg/dL (70-105)
--- NOTE | 2020-10-24 09:10 | Internal Med Progress Note ---
SUBJECTIVE Subjective Patient information: Note initiated : 10/24/20 at 9:06 am Service Date, if different from initiated Date: [] Patient: Sharla Michaels a 75 y/o F admitted on 10/19/20 for COVID POSITIVE, SOB. Chief Complaint: [CoVID pneumonia] Interval history: History of present illness: Ms. Michaels is a 75 year old F Patient presents to the ED with shortness of breath cough fever chills. Patient says she has been ill for about 5 days she came in yesterday and was found to be Covid positive she was offered monoclonal antibodies but refused. She is unvaccinated and says she did get vaccinated because she does not drive. Ms Michaels is yet another unvaccinated patient presenting with Covid pneumonia. She has a history of diabetes stroke vascular disease including CAD has obesity and smokes as well as has COPD. In the ED she was hypoxic in the upper 80s on room air put on several liters oxygen. 10/20 Patient feels a little bit better. Says her shortness of breath is better but still present. However nurse had to titrate to 2 to 4 L and she got up to the bedside this morning. Has productive cough. 10/21 Cough present. She says her breathing is improved today. Still requiring 4 to 5 L of oxygen. Sodium within normal limits. cr 1.4. 10/22: Been on 5L oxygen overnight. Afebrile overnight. c/o shortness of breath. c/o productive cough with white sputum. Denies wheezing. Denies chest pain. Denies fever or chill or sweating. Denies general body weakness. 10/23: Desaturated to mid 80s spo2 despite 10L oxygen. Afebrile overnight. Patient is c/o worsening SOB. c/o nonproductive cough. Denies wheezing. Denies fever or chills or sweating. 10/24: Afebrile overnight. On CPAP with FiO2 overnight. Patient is c/o SOB, improving. c/o wheezing. Denies cough or sputum production. Denies fever or chills or sweating. Constitutional Vitals: Vital Signs Temp Pulse Resp BP Pulse Ox 36.4 C 60 25 H 155/75 90 10/24/20 08:00 10/24/20 08:00 10/24/20 08:00 10/24/20 08:00 10/24/20 08:39 Period Temp Pulse Resp BP Sys/Tai Pulse Ox Last 24 Hr 36.0 C-36.9 C 51-75 17-31 136-197/55-137 87-100 Intake and Output 10/23/20 10/24/20 10/24/20 21:59 05:59 13:59 Output Total 550 800 Balance -550 -800 Weight 78.698 kg Intake & Output: Intake & Output 10/23/20 10/24/20 10/24/20 21:59 05:59 13:59 Output Total 550 800 Balance -550 -800 Weight 78.698 kg Output: Urine Catheter Amount 550 800 Other: Meal Nourishment/Supplement Percent of Meal Consumed 50% Urine Appearance Clear Clear Urine Color Bright Yellow Bright Yellow General appearance: cooperative and no acute distress Head Head exam: Present atraumatic and normocephalic Eye Eye exam: Present EOMI and PERRL ENT ENT exam: Present mucous membranes moist, normal exam and normal external ear exam Additional comments: CPAP in place Neck Neck exam: Present normal inspection; Absent lymphadenopathy, tenderness and thyromegaly Respiratory Respiratory exam: Present rhonchi and wheezes; Absent accessory muscle use and respiratory distress Cardiovascular Cardiovascular exam: Present normal rate and rhythm; Absent JVD GI/Abdominal GI/Abdominal exam: Present normal bowel sounds and soft; Absent organomegaly and tenderness Extremities Exam Extremities exam: Present full ROM, normal capillary refill and normal ins pection; Absent tenderness Neurological Exam Neurological exam: Present alert, CN II-XII intact and oriented X3; Absent motor sensory deficit Psychiatric Psychiatric exam: Present normal affect and normal mood; Absent anxious and depressed Skin Skin exam: Present dry and intact OBJ DATA Labs CBC & Chem 7: 10/24/20 06:17 10/24/20 06:17 Labs: Abnormal Lab Results 10/24/20 10/24/20 10/23/20 06:17 06:17 06:03 Hgb MCV 76.1 L MCH 23.9 L MCHC RDW 14.6 H Neut % (Auto) 87.3 H Lymph % (Auto) 6.7 L Lymph # (Auto) 0.67 L Absolute Neutrophils 8.68 H Sodium 132 L Chloride 95 L Carbon Dioxide 20 L Anion Gap 17.0 H BUN 30 H 28 H Creatinine 1.4 H 1.2 H Glucose 123 H 187 H AST 35 H Albumin 2.9 L 2.7 L Globulin 3.8 H 3.8 H Albumin/Globulin Ratio 0.8 L 0.7 L 10/23/20 10/22/20 10/22/20 06:03 05:41 05:41 Hgb 11.0 L 10.7 L MCV 78.1 L 78.4 L MCH 24.3 L 24.1 L MCHC 30.7 L RDW 14.8 H 15.1 H Neut % (Auto) 84.9 H 85.3 H Lymph % (Auto) 7.9 L 7.5 L Lymph # (Auto) 0.71 L 0.60 L Absolute Neutrophils Sodium 131 L Chloride Carbon Dioxide 20 L Anion Gap BUN 26 H Creatinine 1.3 H Glucose 154 H AST 47 H Albumin 2.6 L Globulin 3.8 H Albumin/Globulin Ratio 0.7 L Meds: Medications Acetaminophen (Acetaminophen 325 Mg Tablet) 650 mg PO Q6HP PRN PRN Reason: PAIN/FEVER > 101 Albuterol/Ipratropium (Ipratropium/Albuterol 3 Ml Ampul.Neb) 3 ml NEB Q8H [facility] Last Admin: 10/24/20 05:38 Dose: 3 ml Documented by: Albuterol/Ipratropium (Ipratropium/Albuterol 3 Ml Ampul.Neb) 3 ml NEB Q4HP PRN PRN Reason: Shortness Of Breath Amlodipine Besylate (Amlodipine 5 Mg Tablet) 5 mg PO QDAY [facility] Last Admin: 10/24/20 08:40 Dose: 5 mg Documented by: Aspirin (Aspirin 81 Mg Tab.Chew) 81 mg PO QDAY [facility] Last Admin: 10/24/20 08:41 Dose: 81 mg Documented by: Citalopram Hydrobromide (Citalopram 20 Mg Tablet) 40 mg PO DAILY [facility] Last Admin: 10/24/20 08:42 Dose: 40 mg Documented by: Dexamethasone (Dexamethasone 4 Mg Tablet) 6 mg PO DAILY [facility] Last Admin: 10/24/20 08:41 Dose: 6 mg Documented by: Dextrose (Dextrose 50% 50 Ml Vial) 0 ml IV UD PRN PRN Reason: Hypoglycemia Diagnostic Test (Pha) (Accu-Chek 1 Each Strip) 1 each FS ACHS [facility] Last Admin: 10/24/20 08:36 Dose: 1 each Documented by: Dipyridamole (Dipyridamole 25 Mg Tablet) 50 mg PO QID [facility] Last Admin: 10/24/20 08:49 Dose: Not Given Documented by: Docusate Sodium (Docusate Sodium 100 Mg Capsule) 100 mg PO BID [facility] Last Admin: 10/24/20 08:41 Dose: 100 mg Documented by: Enoxaparin Sodium (Enoxaparin 40 Mg/0.4 Ml Syringe) 40 mg SQ BID [facility] Last Admin: 10/24/20 08:43 Dose: 40 mg Documented by: Furosemide (Furosemide 40 Mg Tablet) 40 mg PO DAILY [facility] Last Admin: 10/24/20 08:42 Dose: 40 mg Documented by: Gabapentin (Gabapentin 100 Mg Capsule) 100 mg PO QDAY [facility] Last Admin: 10/24/20 08:42 Dose: 100 mg Documented by: Glucose (Dextrose 31 Gm Oral.Susp) 15 gm PO PRN PRN PRN Reason: Hypoglycemia Magnesium Sulfate (Magnesium Sulfate) 2 gm in 50 mls @ 50 mls/hr IV UD PRN PRN Reason: Magnesium </= 1.6 Potassium Chloride 40 meq/ (Dextrose) 520 mls @ 130 mls/hr IV UD PRN PRN Reason: Potassium < 3 Insulin Glargine (Insulin Glargine, Human 1 Unit/0.01 Ml) 30 unit SQ QAM [facility] Last Admin: 10/24/20 08:37 Dose: 30 units Documented by: Insulin Human Lispro (Insulin Lispro 1 Unit/0.01 Ml Unit) 0 unit SQ ACHS [facility]; Protocol Last Admin: 10/24/20 08:36 Dose: 2 units Documented by: Lorazepam (Lorazepam 2 Mg/Ml Vial) 1 mg IV Q4HP PRN PRN Reason: ANXIETY/SEDATION Losartan Potassium (Losartan 50 Mg Tablet) 100 mg PO QDAY [facility] Last Admin: 10/24/20 08:41 Dose: 100 mg Documented by: Metoprolol Succinate (Metoprolol Succinate 50 Mg Tab.Xl.24h) 50 mg PO BID [facility] Last Admin: 10/24/20 08:43 Dose: Not Given Documented by: Ondansetron HCl (Ondansetron 4 Mg/2 Ml Vial) 4 mg IV Q4HP PRN PRN Reason: Nausea And Vomiting Oxybutynin Chloride (Oxybutynin Chloride 5 Mg Tablet) 5 mg PO QDAY [facility] Last Admin: 10/24/20 08:48 Dose: 5 mg Documented by: Polyethylene Glycol (Polyethylene Glycol 3350 17 Gm Packet) 17 gm PO DAILYP PRN PRN Reason: Constipation Potassium Chloride (Potassium Chloride 20 Meq Tablet) 40 meq PO UD PRN PRN Reason: Potssium is 3-3.5 Potassium Chloride (Potassium Chloride 20 Meq Tablet) 40 meq PO UD PRN PRN Reason: Potassium < 3 Pravastatin Sodium (Pravastatin 40 Mg Tablet) 40 mg PO HS [facility] Last Admin: 10/23/20 20:54 Dose: 40 mg Documented by: Senna (Sennosides 1 Tablet) 2 tab PO DAILYP PRN PRN Reason: Constipation Last Admin: 10/24/20 08:48 Dose: 2 tab Documented by: Sodium Chloride (0.9 % Sodium Chloride 10 Ml Syringe) 10 ml IV Q8 [facility] Last Admin: 10/24/20 05:38 Dose: 10 ml Documented by: Trazodone HCl (Trazodone Hcl 50 Mg Tablet) 50 mg PO QHS PRN PRN Reason: Sleep A/P Assessment and plan (1) Hypochromic microcytic anemia: Status: Acute (2) COVID-19: Status: Acute (3) COPD (chronic obstructive pulmonary disease): Status: Acute (4) Essential (primary) hypertension: Status: Acute (5) Mixed dyslipidemia: Status: Acute (6) Depression: Status: Acute Narrative A/P Narrative: Assessment and Plans: 1. CoVID pneumonia: Stays in inpatient PCU Isolation: airborne and contact Supplemental oxygen titrate to achieve spo2 >=88% given h/o COPD, now with CPAP Remdesivir Dexamethasone PO Lovenox Lasix cbc w/ auto diff in the morning to trend WBC 2. h/o COPD, stable: Home oxygen requirement 4-5L/min, currently on CPAP as part of treatment of CoVID pneumonia Continue bronchodilators PRN wheezing Dexamethasone PO 3. Anemia, microcytic hypochromic: cbc w/ auto diff in the morning to trend H/H; transfuse pRBC if hemoglobin <7.0, active bleeding, or symptomatic 4. Essential HTN: Currently normotensive Continue Metoprolol succinate, Amlodipine and Losartan Lasix 5. Depression: Citalopram GI ppx: not currently indicated DVT ppx: Lovenox Code status: Full Prognosis: extremely guarded Disposition: inpatient PCU Time Spent With Patient Time: Total time spent is greater than 50% in coordination of care (as documented) at patient's floor/unit and/or counseling patient:
[2020-10-24] MEDS ORDERED: guaiFENesin/DEXTROMETHORPHAN ORAL SOL PO PRN (09:21)
[2020-10-24] MEDS: REMDESIVIR 100 MG in 0.9 % SODIUM CHLORIDE 250 ML IV SCH (12:58)
[2020-10-24] MEDS: PRAVASTATIN 40 MG TABLET PO SCH (20:45)
[2020-10-24] MEDS: LORazepam 2 MG/ML VIAL IV PRN (23:38)
[2020-10-25] MEDS: 0.9 % SODIUM CHLORIDE 10 ML SYRINGE IV SCH ×4 (00:22→22:00)
[2020-10-25] MEDS: IPRATROPIUM/ALBUTEROL 3 ML AMPUL.NEB NEB SCH ×3 (06:05→21:50)
[2020-10-25 07:14] LABS: Basophils # (Auto) 0.01 K/mcL (0.00-0.30); Basophils % (Auto) 0.1 % (0.0-2.0); Eosinophils # (Auto) 0 K/mcL (0.00-0.70); Eosinophils % (Auto) 0 % (0.0-7.0); Hematocrit 33.7 % (34.1-44.9); Hemoglobin 10.7 g/dL (11.2-15.7); Lymphocytes # (Auto) 0.94 K/mcL (1.50-4.80); Mean Cell Volume 76.4 fL (80.0-100.0); Mean Corpuscular HGB Conc 31.8 g/dL (31.0-36.0); Monocytes # (Auto) 0.85 K/mcL (0.10-0.90); Monocytes % (Auto) 6.3 % (1.0-12.0); Neutrophils % (Auto) 86.6 % (38.0-78.0); Platelet Count 424 K/mcL (140-440); RBC 4.41 M/mcL (3.59-5.38); Red Cell Distribution Width 14.5 % (11.5-14.5); WBC 13.4 K/mcL (4.5-11.0)
[2020-10-25 07:38] LABS: ALT/SGPT 19 U/L (<40); AST/SGOT 22 U/L (<32); Albumin 2.6 gm/dL (3.2-5.2); Albumin/Globulin Ratio 0.7 (1.0-2.3); Alkaline Phosphatase 76 U/L (39-117); Bilirubin,Total 0.5 mg/dL (0.1-1.0); Blood Urea Nitrogen 34 mg/dL (8-23); Calcium 9.5 mg/dL (8.6-10.4); Carbon Dioxide 24 mmol/L (22-30); Chloride 99 mmol/L (96-108); Globulin 3.7 gm/dL (2.2-3.7); Glomerular Filtration Rate 37; Glucose 93 mg/dL (70-105)
[2020-10-25] MEDS: DIPYRIDAMOLE 25 MG TABLET PO SCH ×4 (09:00→21:44)
[2020-10-25] MEDS: INSULIN LISPRO 1 UNIT/0.01 ML UNIT SQ SCH ×4 (09:03→21:42)
[2020-10-25] MEDS: ENOXAPARIN 40 MG/0.4 ML SYRINGE SQ SCH ×2 (09:09→21:50)
[2020-10-25] MEDS: LORazepam 2 MG/ML VIAL IV PRN ×2 (09:09→23:21)
[2020-10-25] MEDS: INSULIN GLARGINE, HUMAN 1 UNIT/0.01 ML SQ SCH (09:10)
[2020-10-25] MEDS: ACETAMINOPHEN 325 MG TABLET PO PRN (09:10)
[2020-10-25] MEDS: LOSARTAN 50 MG TABLET PO SCH (09:10)
[2020-10-25] MEDS: amLODIPine 5 MG TABLET PO SCH (09:11)
[2020-10-25] MEDS: DOCUSATE SODIUM 100 MG CAPSULE PO SCH ×2 (09:11→21:44)
[2020-10-25] MEDS: METOPROLOL SUCCINATE 50 MG TAB.XL.24H PO SCH ×2 (09:11→21:50)
[2020-10-25] MEDS: GABAPENTIN 100 MG CAPSULE PO SCH (09:11)
[2020-10-25] MEDS: FUROSEMIDE 40 MG TABLET PO SCH (09:11)
[2020-10-25] MEDS: ASPIRIN 81 MG TAB.CHEW PO SCH (09:11)
[2020-10-25] MEDS: DEXAMETHASONE 4 MG TABLET PO SCH (09:12)
[2020-10-25] MEDS: CITALOPRAM 20 MG TABLET PO SCH (09:19)
[2020-10-25] MEDS: OXYBUTYNIN CHLORIDE 5 MG TABLET PO SCH (09:33)
--- NOTE | 2020-10-25 10:36 | Internal Med Progress Note ---
SUBJECTIVE Subjective Patient information: Note initiated : 10/25/20 at 10:33 am Service Date, if different from initiated Date: [] Patient: Sharla Michaels a 75 y/o F admitted on 10/19/20 for COVID POSITIVE, SOB. Chief Complaint: [CoVID pneumonia] Interval history: History of present illness: Ms. Michaels is a 75 year old F Patient presents to the ED with shortness of breath cough fever chills. Patient says she has been ill for about 5 days she came in yesterday and was found to be Covid positive she was offered monoclonal antibodies but refused. She is unvaccinated and says she did get vaccinated because she does not drive. Ms Michaels is yet another unvaccinated patient presenting with Covid pneumonia. She has a history of diabetes stroke vascular disease including CAD has obesity and smokes as well as has COPD. In the ED she was hypoxic in the upper 80s on room air put on several liters oxygen. 10/20 Patient feels a little bit better. Says her shortness of breath is better but still present. However nurse had to titrate to 2 to 4 L and she got up to the bedside this morning. Has productive cough. 10/21 Cough present. She says her breathing is improved today. Still requiring 4 to 5 L of oxygen. Sodium within normal limits. cr 1.4. 10/22: Been on 5L oxygen overnight. Afebrile overnight. c/o shortness of breath. c/o productive cough with white sputum. Denies wheezing. Denies chest pain. Denies fever or chill or sweating. Denies general body weakness. 10/23: Desaturated to mid 80s spo2 despite 10L oxygen. Afebrile overnight. Patient is c/o worsening SOB. c/o nonproductive cough. Denies wheezing. Denies fever or chills or sweating. 10/24: Afebrile overnight. On CPAP with FiO2 overnight. Patient is c/o SOB, improving. c/o wheezing. Denies cough or sputum production. Denies fever or chills or sweating. 10/25: Afebrile overnight. On CPAP with FiO2 55% overnight. Unable to obtain subjective due to clinical situations. Constitutional Vitals: Vital Signs Temp Pulse Resp BP Pulse Ox 36.6 C 67 25 H 162/69 92 10/25/20 08:02 10/25/20 07:53 10/25/20 08:02 10/25/20 08:02 10/25/20 08:02 Period Temp Pulse Resp BP Sys/Tai Pulse Ox Last 24 Hr 36.3 C-36.9 C 58-85 17-30 135-172/46-104 87-97 Intake and Output 10/24/20 10/25/20 10/25/20 21:59 05:59 13:59 Intake Total 250 120 Output Total 700 175 Balance -450 -55 Weight 78.29 kg Intake & Output: Intake & Output 10/24/20 10/25/20 10/25/20 21:59 05:59 13:59 Intake Total 250 120 Output Total 700 175 Balance -450 -55 Weight 78.29 kg Intake: IV 250 Veklury 100 mg In Sodium 250 Chloride 0.9% 250 ml @ 500 mls/ hr IV Q24H [facility] [place] Rx#:[id number] Oral 120 Output: Urine Catheter Amount 700 175 Other: Urine Appearance Clear Clear Urine Color Bright Yellow Pale Urine Odor Normal Normal General appearance: cooperative, disheveled and no acute distress Head Head exam: Present atraumatic and normocephalic Eye Eye exam: Present EOMI and PERRL ENT ENT exam: Present mucous membranes moist, normal exam and normal external ear exam Additional comments: CPAP in place Neck Neck exam: Present normal inspection; Absent lymphadenopathy, tenderness and thyromegaly Respiratory Respiratory exam: Present rhonchi and wheezes; Absent accessory muscle use and respiratory distress Cardiovascular Cardiovascular exam: Present normal rate and rhythm; Absent JVD GI/Abdominal GI/Abdominal exam: Present normal bowel sounds and soft; Absent organomegaly and tenderness Extremities Exam Extremities exam: Present full ROM, normal capillary refill and normal inspection; Absent tenderness Neurological Exam Neurological exam: Present altered and CN II-XII intact; Absent alert, motor sensory deficit and oriented X3 Psychiatric Psychiatric exam: Present normal affect and normal mood; Absent anxious and depressed Skin Skin exam: Present dry and intact OBJ DATA Labs CBC & Chem 7: 10/25/20 06:17 10/25/20 06:17 Labs: Abnormal Lab Results 10/25/20 10/25/20 10/24/20 06:17 06:17 06:17 WBC 13.4 H Hgb 10.7 L Hct 33.7 L MCV 76.4 L MCH 24.3 L RDW Neut % (Auto) 86.6 H Lymph % (Auto) 7.0 L Lymph # (Auto) 0.94 L Absolute Neutrophils 11.59 H Sodium 132 L Chloride 95 L Carbon Dioxide Anion Gap BUN 34 H 30 H Creatinine 1.4 H 1.4 H Glucose 123 H AST Albumin 2.6 L 2.9 L Globulin 3.8 H Albumin/Globulin Ratio 0.7 L 0.8 L 10/24/20 10/23/20 10/23/20 06:17 06:03 06:03 WBC Hgb 11.0 L Hct MCV 76.1 L 78.1 L MCH 23.9 L 24.3 L RDW 14.6 H 14.8 H Neut % (Auto) 87.3 H 84.9 H Lymph % (Auto) 6.7 L 7.9 L Lymph # (Auto) 0.67 L 0.71 L Absolute Neutrophils 8.68 H Sodium Chloride Carbon Dioxide 20 L Anion Gap 17.0 H BUN 28 H Creatinine 1.2 H Glucose 187 H AST 35 H Albumin 2.7 L Globulin 3.8 H Albumin/Globulin Ratio 0.7 L Meds: Medications Acetaminophen (Acetaminophen 325 Mg Tablet) 650 mg PO Q6HP PRN PRN Reason: PAIN/FEVER > 101 Last Admin: 10/25/20 09:10 Dose: 650 mg Documented by: Albuterol/Ipratropium (Ipratropium/Albuterol 3 Ml Ampul.Neb) 3 ml NEB Q8H [facility] [place] Last Admin: 10/25/20 06:05 Dose: 3 ml Documented by: Albuterol/Ipratropium (Ipratropium/Albuterol 3 Ml Ampul.Neb) 3 ml NEB Q4HP PRN PRN Reason: Shortness Of Breath Amlodipine Besylate (Amlodipine 5 Mg Tablet) 5 mg PO QDAY [facility] Last Admin: 10/25/20 09:11 Dose: 5 mg Documented by: Aspirin (Aspirin 81 Mg Tab.Chew) 81 mg PO QDAY [facility] [place] Last Admin: 10/25/20 09:11 Dose: 81 mg Documented by: Citalopram Hydrobromide (Citalopram 20 Mg Tablet) 40 mg PO DAILY [facility] Last Admin: 10/25/20 09:19 Dose: 40 mg Documented by: Dexamethasone (Dexamethasone 4 Mg Tablet) 6 mg PO DAILY [facility] [place] Last Admin: 10/25/20 09:12 Dose: 6 mg Documented by: Dextrose (Dextrose 50% 50 Ml Vial) 0 ml IV UD PRN PRN Reason: Hypoglycemia Diagnostic Test (Pha) (Accu-Chek 1 Each Strip) 1 each FS ACHS [facility] Last Admin: 10/25/20 09:03 Dose: 1 each Documented by: Dipyridamole (Dipyridamole 25 Mg Tablet) 50 mg PO QID [facility] [place] Last Admin: 10/25/20 09:00 Dose: 50 mg Documented by: Docusate Sodium (Docusate Sodium 100 Mg Capsule) 100 mg PO BID [facility] [place] Last Admin: 10/25/20 09:11 Dose: 100 mg Documented by: Enoxaparin Sodium (Enoxaparin 40 Mg/0.4 Ml Syringe) 40 mg SQ BID [facility] [place] Last Admin: 10/25/20 09:09 Dose: 40 mg Documented by: Furosemide (Furosemide 40 Mg Tablet) 40 mg PO DAILY [facility] [place] Last Admin: 10/25/20 09:11 Dose: 40 mg Documented by: Gabapentin (Gabapentin 100 Mg Capsule) 100 mg PO QDAY [facility] Last Admin: 10/25/20 09:11 Dose: 100 mg Documented by: Glucose (Dextrose 31 Gm Oral.Susp) 15 gm PO PRN PRN PRN Reason: Hypoglycemia Guaifenesin (Guaifenesin/Dextromethorphan Oral Adelita) 10 ml PO Q4HP PRN PRN Reason: Cough Magnesium Sulfate (Magnesium Sulfate) 2 gm in 50 mls @ 50 mls/hr IV UD PRN PRN Reason: Magnesium </= 1.6 Potassium Chloride 40 meq/ (Dextrose) 520 mls @ 130 mls/hr IV UD PRN PRN Reason: Potassium < 3 REMDESIVIR 100 mg/ Sodium (Chloride) 250 mls @ 500 mls/hr IV Q24H [facility] Stop: 10/28/20 11:29 Last Infusion: 10/24/20 14:28 Dose: Infused Documented by: Insulin Glargine (Insulin Glargine, Human 1 Unit/0.01 Ml) [facility] Admin: 10/25/20 09:10 Dose: 30 units Documented by: Insulin Human Lispro (Insulin Lispro 1 Unit/0.01 Ml Unit) 0 unit SQ [facility]; Protocol Last Admin: 10/25/20 09:03 Dose: Not Given Documented by: Lorazepam (Lorazepam 2 Mg/Ml Vial) 1 mg IV Q4HP PRN PRN Reason: ANXIETY/SEDATION Last Admin: 10/25/20 09:09 Dose: 1 mg Documented by: Losartan Potassium (Losartan 50 Mg Tablet) 100 mg PO QDAY [facility] Last Admin: 10/25/20 09:10 Dose: 100 mg Documented by: Metoprolol Succinate (Metoprolol Succinate 50 Mg Tab.Xl.24h) 50 mg PO BID [facility] Last Admin: 10/25/20 09:11 Dose: 50 mg Documented by: Ondansetron HCl (Ondansetron 4 Mg/2 Ml Vial) 4 mg IV Q4HP PRN PRN Reason: Nausea And Vomiting Oxybutynin Chloride (Oxybutynin Chloride 5 Mg Tablet) 5 mg PO QDAY [facility] [place] Last Admin: 10/25/20 09:33 Dose: 5 mg Documented by: Polyethylene Glycol (Polyethylene Glycol 3350 17 Gm Packet) 17 gm PO DAILYP PRN PRN Reason: Constipation Potassium Chloride (Potassium Chloride 20 Meq Tablet) 40 meq PO UD PRN PRN Reason: Potssium is 3-3.5 Potassium Chloride (Potassium Chloride 20 Meq Tablet) 40 meq PO UD PRN PRN Reason: Potassium < 3 Pravastatin Sodium (Pravastatin 40 Mg Tablet) 40 mg PO HS [facility] Last Admin: 10/24/20 20:45 Dose: 40 mg Documented by: Senna (Sennosides 1 Tablet) 2 tab PO DAILYP PRN PRN Reason: Constipation Last Admin: 10/24/20 08:48 Dose: 2 tab Documented by: Sodium Chloride (0.9 % Sodium Chloride 10 Ml Syringe) 10 ml IV Q8 [facility] Last Admin: 10/25/20 06:06 Dose: 10 ml Documented by: Trazodone HCl (Trazodone Hcl 50 Mg Tablet) 50 mg PO QHS PRN PRN Reason: Sleep A/P Assessment and plan (1) Hypochromic microcytic anemia: Status: Acute (2) COVID-19: Status: Acute (3) COPD (chronic obstructive pulmonary disease): Status: Acute (4) Essential (primary) hypertension: Status: Acute (5) Mixed dyslipidemia: Status: Acute (6) Depression: Status: Acute Narrative A/P Narrative: Assessment and Plans: 1. CoVID pneumonia: Stays in inpatient PCU Isolation: airborne and contact Supplemental oxygen titrate to achieve spo2 >=88% given h/o COPD, now with CPAP, will change to BiPAP Remdesivir Dexamethasone PO Lovenox Lasix cbc w/ auto diff in the morning to trend WBC 2. h/o COPD, stable: Home oxygen requirement 4-5L/min, currently on CPAP as part of treatment of CoVID pneumonia, will change to BiPAP Continue bronchodilators PRN wheezing Dexamethasone PO 3. Anemia, microcytic hypochromic: cbc w/ auto diff in the morning to trend H/H; transfuse pRBC if hemoglobin <7.0, active bleeding, or symptomatic 4. Essential HTN: Currently normotensive Continue Metoprolol succinate, Amlodipine and Losartan Lasix 5. Depression: Citalopram GI ppx: not currently indicated DVT ppx: Lovenox Code status: Full Prognosis: extremely guarded Disposition: inpatient PCU Time Spent With Patient Time: Total time spent is greater than 50% in coordination of care (as documented) at patient's floor/unit and/or counseling patient:
[2020-10-25] MEDS: REMDESIVIR 100 MG in 0.9 % SODIUM CHLORIDE 250 ML IV SCH (11:00)
--- NOTE | 2020-10-25 15:19 | XRay Report ---
CLINICAL INFORMATION: f/u study; covid pna COMPARISON: 10/22/2020 FINDINGS: Mild cardiomegaly is unchanged. Sternotomy changes noted. Mediastinum and pulmonary vessels are normal. Diffuse bilateral infiltrates are much better aerated when compared to the exam three days ago. There still moderate patchy residual. No effusion IMPRESSION: Marked improvement in diffuse bilateral infiltrates since exam three days ago. Findings compatible with resolving Covid pneumonia Interpreted and Authenticated by: Cahd Richmond 10/25/20
[2020-10-25] MEDS: PRAVASTATIN 40 MG TABLET PO SCH (21:50)
[2020-10-26] MEDS: 0.9 % SODIUM CHLORIDE 10 ML SYRINGE IV SCH ×3 (06:01→22:30)
[2020-10-26] MEDS: IPRATROPIUM/ALBUTEROL 3 ML AMPUL.NEB NEB SCH ×3 (06:01→21:33)
[2020-10-26 07:03] LABS: Basophils # (Auto) 0.02 K/mcL (0.00-0.30); Basophils % (Auto) 0.2 % (0.0-2.0); Eosinophils # (Auto) 0 K/mcL (0.00-0.70); Eosinophils % (Auto) 0 % (0.0-7.0); Hematocrit 33.2 % (34.1-44.9); Hemoglobin 10.9 g/dL (11.2-15.7); Lymphocytes # (Auto) 0.65 K/mcL (1.50-4.80); Lymphocytes % (Auto) 4.9 % (15.5-49.0); Mean Cell Volume 77.4 fL (80.0-100.0); Mean Corpuscular HGB Conc 32.8 g/dL (31.0-36.0); Mean Platelet Volume 10.3 fL (7.4-10.4); Monocytes # (Auto) 0.68 K/mcL (0.10-0.90); Monocytes % (Auto) 5.1 % (1.0-12.0); Neutrophils % (Auto) 89.8 % (38.0-78.0); Platelet Count 379 K/mcL (140-440); RBC 4.29 M/mcL (3.59-5.38); Red Cell Distribution Width 14.8 % (11.5-14.5); WBC 13.3 K/mcL (4.5-11.0)
[2020-10-26 08:07] LABS: ALT/SGPT 16 U/L (<40); AST/SGOT 16 U/L (<32); Albumin 2.5 gm/dL (3.2-5.2); Albumin/Globulin Ratio 0.7 (1.0-2.3); Alkaline Phosphatase 68 U/L (39-117); Bilirubin,Total 0.5 mg/dL (0.1-1.0); Blood Urea Nitrogen 42 mg/dL (8-23); Calcium 9.9 mg/dL (8.6-10.4); Carbon Dioxide 22 mmol/L (22-30); Chloride 104 mmol/L (96-108); Globulin 3.8 gm/dL (2.2-3.7); Glomerular Filtration Rate 40; Glucose 133 mg/dL (70-105)
[2020-10-26] MEDS: INSULIN LISPRO 1 UNIT/0.01 ML UNIT SQ SCH ×4 (08:30→22:29)
[2020-10-26] MEDS: METOPROLOL SUCCINATE 50 MG TAB.XL.24H PO SCH ×2 (08:33→22:28)
[2020-10-26] MEDS: SENNOSIDES 1 TABLET PO PRN (08:33)
[2020-10-26] MEDS: DEXAMETHASONE 4 MG TABLET PO SCH (08:34)
[2020-10-26] MEDS: LOSARTAN 50 MG TABLET PO SCH (08:35)
[2020-10-26] MEDS: FUROSEMIDE 40 MG TABLET PO SCH (08:35)
[2020-10-26] MEDS: ASPIRIN 81 MG TAB.CHEW PO SCH (08:35)
[2020-10-26] MEDS: DOCUSATE SODIUM 100 MG CAPSULE PO SCH ×2 (08:35→22:28)
[2020-10-26] MEDS: GABAPENTIN 100 MG CAPSULE PO SCH (08:35)
[2020-10-26] MEDS: CITALOPRAM 20 MG TABLET PO SCH (08:35)
[2020-10-26] MEDS: ENOXAPARIN 40 MG/0.4 ML SYRINGE SQ SCH ×2 (08:36→22:29)
[2020-10-26] MEDS: amLODIPine 5 MG TABLET PO SCH (08:36)
[2020-10-26] MEDS: OXYBUTYNIN CHLORIDE 5 MG TABLET PO SCH (08:46)
[2020-10-26] MEDS: DIPYRIDAMOLE 25 MG TABLET PO SCH ×4 (08:48→22:29)
[2020-10-26] MEDS: INSULIN GLARGINE, HUMAN 1 UNIT/0.01 ML SQ SCH (08:51)
[2020-10-26] MEDS: REMDESIVIR 100 MG in 0.9 % SODIUM CHLORIDE 250 ML IV SCH (10:30)
--- NOTE | 2020-10-26 11:05 | Internal Med Progress Note ---
SUBJECTIVE Subjective Patient information: Note initiated : 10/26/20 at 11:01 am Service Date, if different from initiated Date: [] Patient: Sharla Michaels a 75 y/o F admitted on 10/19/20 for COVID POSITIVE, SOB. Chief Complaint: [CoVID pneumonia] Interval history: History of present illness: Ms. Michaels is a 75 year old F Patient presents to the ED with shortness of breath cough fever chills. Patient says she has been ill for about 5 days she came in yesterday and was found to be Covid positive she was offered monoclonal antibodies but refused. She is unvaccinated and says she did get vaccinated because she does not drive. Ms Michaels is yet another unvaccinated patient presenting with Covid pneumonia. She has a history of diabetes stroke vascular disease including CAD has obesity and smokes as well as has COPD. In the ED she was hypoxic in the upper 80s on room air put on several liters oxygen. 10/20 Patient feels a little bit better. Says her shortness of breath is better but still present. However nurse had to titrate to 2 to 4 L and she got up to the bedside this morning. Has productive cough. 10/21 Cough present. She says her breathing is improved today. Still requiring 4 to 5 L of oxygen. Sodium within normal limits. cr 1.4. 10/22: Been on 5L oxygen overnight. Afebrile overnight. c/o shortness of breath. c/o productive cough with white sputum. Denies wheezing. Denies chest pain. Denies fever or chill or sweating. Denies general body weakness. 10/23: Desaturated to mid 80s spo2 despite 10L oxygen. Afebrile overnight. Patient is c/o worsening SOB. c/o nonproductive cough. Denies wheezing. Denies fever or chills or sweating. 10/24: Afebrile overnight. On CPAP with FiO2 overnight. Patient is c/o SOB, improving. c/o wheezing. Denies cough or sputum production. Denies fever or chills or sweating. 10/25: Afebrile overnight. On CPAP with FiO2 55% overnight. Unable to obtain subjective due to clinical situations. 10/26: Afebrile overnight. On BiPAP 15/10 FiO2 55% overnight. Been prone overnight. c/o SOB. c/o nonproductive cough, no sputum production or respiratory wheezing. Denies chest pain. Denies fever, chills, or sweating. Constitutional Vitals: Vital Signs Temp Pulse Resp BP Pulse Ox 36.2 C 56 L 28 H 161/73 95 10/26/20 08:02 10/26/20 09:36 10/26/20 10:01 10/26/20 10:01 10/26/20 10:01 Period Temp Pulse Resp BP Sys/Tai Pulse Ox Last 24 Hr 36.2 C-36.8 C 51-64 16-31 113-168/55-75 90-98 Intake and Output 10/25/20 10/26/20 10/26/20 21:59 05:59 13:59 Output Total 775 250 Balance -775 -250 Weight 77.111 kg Intake & Output: Intake & Output 10/25/20 10/26/20 10/26/20 21:59 05:59 13:59 Output Total 775 250 Balance -775 -250 Weight 77.111 kg Output: Urine Catheter Amount 775 250 Other: Urine Appearance Clear Clear Uretheral (T[place]entino) Clear Urine Color Pale Bright Yellow Uretheral ([place]) Bright Yellow Urine Odor Normal Uretheral ([place]) Normal General appearance: cooperative and mild distress Exam: Prone Head Head exam: Present atraumatic and normocephalic Eye Eye exam: Present EOMI and PERRL ENT ENT exam: Present mucous membranes moist, normal exam and normal external ear exam Additional comments: BiPAP in place Neck Neck exam: Present normal inspection; Absent lymphadenopathy, tenderness and thyromegaly Respiratory Respiratory exam: Present rhonchi; Absent accessory muscle use, respiratory distress and wheezes Cardiovascular Cardiovascular exam: Present normal rate and rhythm; Absent JVD GI/Abdominal GI/Abdominal exam: Present normal bowel sounds and soft; Absent organomegaly and tenderness Extremities Exam Extremities exam: Present full ROM, normal capillary refill and normal inspection; Absent tenderness Neurological Exam Neurological exam: Present alert, CN II-XII intact and oriented X3; Absent motor sensory deficit Psychiatric Psychiatric exam: Present normal affect and normal mood; Absent anxious and depressed Skin Skin exam: Present dry and intact OBJ DATA Labs CBC & Chem 7: 10/26/20 05:37 10/26/20 05:36 Labs: Abnormal Lab Results 10/26/20 10/26/20 10/25/20 05:37 05:36 06:17 WBC 13.3 H Hgb 10.9 L Hct 33.2 L MCV 77.4 L MCH 25.4 L RDW 14.8 H Neut % (Auto) 89.8 H Lymph % (Auto) 4.9 L Lymph # (Auto) 0.65 L Absolute Neutrophils 11.96 H Sodium Chloride BUN 42 H 34 H Creatinine 1.3 H 1.4 H Glucose 133 H Albumin 2.5 L 2.6 L Globulin 3.8 H Albumin/Globulin Ratio 0.7 L 0.7 L 10/25/20 10/24/20 10/24/20 06:17 06:17 06:17 WBC 13.4 H Hgb 10.7 L Hct 33.7 L MCV 76.4 L 76.1 L MCH 24.3 L 23.9 L RDW 14.6 H Neut % (Auto) 86.6 H 87.3 H Lymph % (Auto) 7.0 L 6.7 L Lymph # (Auto) 0.94 L 0.67 L Absolute Neutrophils 11.59 H 8.68 H Sodium 132 L Chloride 95 L BUN 30 H Creatinine 1.4 H Glucose 123 H Albumin 2.9 L Globulin 3.8 H Albumin/Globulin Ratio 0.8 L Meds: Medications Acetaminophen (Acetaminophen 325 Mg Tablet) 650 mg PO Q6HP PRN PRN Reason: PAIN/FEVER > 101 Last Admin: 10/25/20 09:10 Dose: 650 mg Documented by: Albuterol/Ipratropium (Ipratropium/Albuterol 3 Ml Ampul.Neb) 3 ml NEB Q8H [facility] Last Admin: 10/26/20 06:01 Dose: 3 ml Documented by: Albuterol/Ipratropium (Ipratropium/Albuterol 3 Ml Ampul.Neb) 3 ml NEB Q4HP PRN PRN Reason: Shortness Of Breath Amlodipine Besylate (Amlodipine 5 Mg Tablet) 5 mg PO QDAY [facility] Last Admin: 10/26/20 08:36 Dose: 5 mg Documented by: Aspirin (Aspirin 81 Mg Tab.Chew) 81 mg PO QDAY [facility] Last Admin: 10/26/20 08:35 Dose: 81 mg Documented by: Citalopram Hydrobromide (Citalopram 20 Mg Tablet) 40 mg PO DAILY [facility] Last Admin: 10/26/20 08:35 Dose: 40 mg Documented by: Dexamethasone (Dexamethasone 4 Mg Tablet) 6 mg PO DAILY [facility] Last Admin: 10/26/20 08:34 Dose: 6 mg Documented by: Dextrose (Dextrose 50% 50 Ml Vial) 0 ml IV UD PRN PRN Reason: Hypoglycemia Diagnostic Test (Pha) (Accu-Chek 1 Each Strip) 1 each FS ACHS [facility] Last Admin: 10/26/20 08:30 Dose: 1 each Documented by: Dipyridamole (Dipyridamole 25 Mg Tablet) 50 mg PO QID [facility] Last Admin: 10/26/20 08:48 Dose: 50 mg Documented by: Docusate Sodium (Docusate Sodium 100 Mg Capsule) 100 mg PO BID [facility] Last Admin: 10/26/20 08:35 Dose: 100 mg Documented by: Enoxaparin Sodium (Enoxaparin 40 Mg/0.4 Ml Syringe) 40 mg SQ BID [facility] Last Admin: 10/26/20 08:36 Dose: 40 mg Documented by: Furosemide (Furosemide 40 Mg Tablet) 40 mg PO DAILY [facility] Last Admin: 10/26/20 08:35 Dose: 40 mg Documented by: Gabapentin (Gabapentin 100 Mg Capsule) 100 mg PO QDAY [facility] Last Admin: 10/26/20 08:35 Dose: 100 mg Documented by: Glucose (Dextrose 31 Gm Oral.Susp) 15 gm PO PRN PRN PRN Reason: Hypoglycemia Guaifenesin (Guaifenesin/Dextromethorphan Oral Adelita) 10 ml PO Q4HP PRN PRN Reason: Cough Magnesium Sulfate (Magnesium Sulfate) 2 gm in 50 mls @ 50 mls/hr IV UD PRN PRN Reason: Magnesium </= 1.6 Potassium Chloride 40 meq/ (Dextrose) 520 mls @ 130 mls/hr IV UD PRN PRN Reason: Potassium < 3 REMDESIVIR 100 mg/ Sodium (Chloride) 250 mls @ 500 mls/hr IV Q24H [facility] Stop: 10/28/20 11:29 Last Infusion: 10/25/20 11:30 Dose: Infused Documented by: Insulin Glargine (Insulin Glargine, Human 1 Unit/0.01 Ml) 30 unit SQ QAM [facility] Last Admin: 10/26/20 08:51 Dose: 30 units Documented by: Insulin Human Lispro (Insulin Lispro 1 Unit/0.01 Ml Unit) 0 unit SQ [facility]; Protocol Last Admin: 10/26/20 08:30 Dose: Not Given Documented by: Lorazepam (Lorazepam 2 Mg/Ml Vial) 1 mg IV Q4HP PRN PRN Reason: ANXIETY/SEDATION Last Admin: 10/25/20 23:21 Dose: 1 mg Documented by: Losartan Potassium (Losartan 50 Mg Tablet) 100 mg PO QDAY [facility] Last Admin: 10/26/20 08:35 Dose: 100 mg Documented by: Metoprolol Succinate (Metoprolol Succinate 50 Mg Tab.Xl.24h) 50 mg PO BID [facility] Last Admin: 10/26/20 08:33 Dose: 50 mg Documented by: Ondansetron HCl (Ondansetron 4 Mg/2 Ml Vial) 4 mg IV Q4HP PRN PRN Reason: Nausea And Vomiting Oxybutynin Chloride (Oxybutynin Chloride 5 Mg Tablet) 5 mg PO QDAY [facility] Last Admin: 10/26/20 08:46 Dose: 5 mg Documented by: Polyethylene Glycol (Polyethylene Glycol 3350 17 Gm Packet) 17 gm PO DAILYP PRN PRN Reason: Constipation Potassium Chloride (Potassium Chloride 20 Meq Tablet) 40 meq PO UD PRN PRN Reason: Potssium is 3-3.5 Potassium Chloride (Potassium Chloride 20 Meq Tablet) 40 meq PO UD PRN PRN Reason: Potassium < 3 Pravastatin Sodium (Pravastatin 40 Mg Tablet) 40 mg PO HS [facility] Last Admin: 10/25/20 21:50 Dose: 40 mg Documented by: Senna (Sennosides 1 Tablet) 2 tab PO DAILYP PRN PRN Reason: Constipation Last Admin: 10/26/20 08:33 Dose: 2 tab Documented by: Sodium Chloride (0.9 % Sodium Chloride 10 Ml Syringe) 10 ml IV Q8 [facility] Last Admin: 10/26/20 06:01 Dose: 10 ml Documented by: Trazodone HCl (Trazodone Hcl 50 Mg Tablet) 50 mg PO QHS PRN PRN Reason: Sleep A/P Assessment and plan (1) Hypochromic microcytic anemia: Status: Acute (2) COVID-19: Status: Acute (3) COPD (chronic obstructive pulmonary disease): Status: Acute (4) Essential (primary) hypertension: Status: Acute (5) Mixed dyslipidemia: Status: Acute (6) Depression: Status: Acute Narrative A/P Narrative: Assessment and Plans: 1. CoVID pneumonia: Stays in inpatient PCU Isolation: airborne and contact Supplemental oxygen titrate to achieve spo2 >=88% given h/o COPD, now with BiPAP 15/5, FiO2 55% Remdesivir Dexamethasone PO Lovenox Lasix cbc w/ auto diff in the morning to trend WBC 2. h/o COPD, stable: Home oxygen requirement 4-5L/min, currently on CPAP as part of treatment of CoVID pneumonia, will change to BiPAP Continue bronchodilators PRN wheezing Dexamethasone PO 3. Anemia, microcytic hypochromic: cbc w/ auto diff in the morning to trend H/H; transfuse pRBC if hemoglobin <7.0, active bleeding, or symptomatic 4. Essential HTN: Currently normotensive Continue Metoprolol succinate, Amlodipine and Losartan Lasix 5. Depression: Citalopram GI ppx: not currently indicated DVT ppx: Lovenox Code status: Full Prognosis: extremely guarded Disposition: inpatient PCU Time Spent With Patient Time: Total time spent is greater than 50% in coordination of care (as docum ented) at patient's floor/unit and/or counseling patient: Total time spent with greater than 50% in coordination of care (as documented) at patient's floor/unit and/or counseling patient:: Greater than 35 minutes
[2020-10-26] MEDS: PRAVASTATIN 40 MG TABLET PO SCH (22:29)
[2020-10-27] MEDS: IPRATROPIUM/ALBUTEROL 3 ML AMPUL.NEB NEB SCH ×3 (05:35→21:10)
[2020-10-27] MEDS: 0.9 % SODIUM CHLORIDE 10 ML SYRINGE IV SCH ×3 (05:35→23:39)
[2020-10-27 07:18] LABS: Basophils # (Auto) 0.02 K/mcL (0.00-0.30); Basophils % (Auto) 0.1 % (0.0-2.0); Eosinophils # (Auto) 0.01 K/mcL (0.00-0.70); Eosinophils % (Auto) 0.1 % (0.0-7.0); Hematocrit 35.1 % (34.1-44.9); Lymphocytes # (Auto) 0.76 K/mcL (1.50-4.80); Mean Corpuscular HGB Conc 31.3 g/dL (31.0-36.0); Mean Platelet Volume 10.3 fL (7.4-10.4); Monocytes # (Auto) 0.71 K/mcL (0.10-0.90); Monocytes % (Auto) 4.7 % (1.0-12.0); Neutrophils % (Auto) 90.1 % (38.0-78.0); Platelet Count 373 K/mcL (140-440); Red Cell Distribution Width 14.6 % (11.5-14.5); WBC 15.2 K/mcL (4.5-11.0)
[2020-10-27 08:17] LABS: ALT/SGPT 15 U/L (<40); AST/SGOT 21 U/L (<32); Albumin 2.8 gm/dL (3.2-5.2); Albumin/Globulin Ratio 0.7 (1.0-2.3); Alkaline Phosphatase 78 U/L (39-117); Bilirubin,Total 0.6 mg/dL (0.1-1.0); Blood Urea Nitrogen 49 mg/dL (8-23); Carbon Dioxide 24 mmol/L (22-30); Chloride 103 mmol/L (96-108); Globulin 3.9 gm/dL (2.2-3.7); Glomerular Filtration Rate 34; Glucose 143 mg/dL (70-105)
[2020-10-27] MEDS: IPRATROPIUM/ALBUTEROL 3 ML AMPUL.NEB NEB PRN ×2 (08:18→09:48)
[2020-10-27] MEDS: ENOXAPARIN 40 MG/0.4 ML SYRINGE SQ SCH ×2 (08:29→21:33)
[2020-10-27] MEDS: GABAPENTIN 100 MG CAPSULE PO SCH (08:30)
[2020-10-27] MEDS: INSULIN LISPRO 1 UNIT/0.01 ML UNIT SQ SCH ×4 (08:30→21:10)
[2020-10-27] MEDS: ASPIRIN 81 MG TAB.CHEW PO SCH (08:30)
[2020-10-27] MEDS: ACETAMINOPHEN 325 MG TABLET PO PRN (08:30)
[2020-10-27] MEDS: INSULIN GLARGINE, HUMAN 1 UNIT/0.01 ML SQ SCH (08:30)
[2020-10-27] MEDS: amLODIPine 5 MG TABLET PO SCH (08:31)
[2020-10-27] MEDS: DOCUSATE SODIUM 100 MG CAPSULE PO SCH ×2 (08:31→21:34)
[2020-10-27] MEDS: FUROSEMIDE 40 MG TABLET PO SCH (08:31)
[2020-10-27] MEDS: CITALOPRAM 20 MG TABLET PO SCH (08:31)
[2020-10-27] MEDS: DEXAMETHASONE 4 MG TABLET PO SCH (08:31)
[2020-10-27] MEDS: METOPROLOL SUCCINATE 50 MG TAB.XL.24H PO SCH ×2 (08:31→21:34)
[2020-10-27] MEDS: LOSARTAN 50 MG TABLET PO SCH (08:31)
[2020-10-27] MEDS: DIPYRIDAMOLE 25 MG TABLET PO SCH ×4 (08:36→21:34)
--- NOTE | 2020-10-27 08:40 | Internal Med Progress Note ---
SUBJECTIVE Subjective Patient information: Note initiated : 10/27/20 at 8:37 am Service Date, if different from initiated Date: [] Patient: Sharla Michaels a 75 y/o F admitted on 10/19/20 for COVID POSITIVE, SOB. Chief Complaint: [CoVID pneumonia] Interval history: History of present illness: Ms. Michaels is a 75 year old F Patient presents to the ED with shortness of breath cough fever chills. Patient says she has been ill for about 5 days she came in yesterday and was found to be Covid positive she was offered monoclonal antibodies but refused. She is unvaccinated and says she did get vaccinated because she does not drive. Ms Michaels is yet another unvaccinated patient presenting with Covid pneumonia. She has a history of diabetes stroke vascular disease including CAD has obesity and smokes as well as has COPD. In the ED she was hypoxic in the upper 80s on room air put on several liters oxygen. 10/20 Patient feels a little bit better. Says her shortness of breath is better but still present. However nurse had to titrate to 2 to 4 L and she got up to the bedside this morning. Has productive cough. 10/21 Cough present. She says her breathing is improved today. Still requiring 4 to 5 L of oxygen. Sodium within normal limits. cr 1.4. 10/22: Been on 5L oxygen overnight. Afebrile overnight. c/o shortness of breath. c/o productive cough with white sputum. Denies wheezing. Denies chest pain. Denies fever or chill or sweating. Denies general body weakness. 10/23: Desaturated to mid 80s spo2 despite 10L oxygen. Afebrile overnight. Patient is c/o worsening SOB. c/o nonproductive cough. Denies wheezing. Denies fever or chills or sweating. 10/24: Afebrile overnight. On CPAP with FiO2 overnight. Patient is c/o SOB, improving. c/o wheezing. Denies cough or sputum production. Denies fever or chills or sweating. 10/25: Afebrile overnight. On CPAP with FiO2 55% overnight. Unable to obtain subjective due to clinical situations. 10/26: Afebrile overnight. On BiPAP 15/10 FiO2 55% overnight. Been prone overnight. c/o SOB. c/o nonproductive cough, no sputum production or respiratory wheezing. Denies chest pain. Denies fever, chills, or sweating. 10/27: Afebrile overnight. Been prone overnight. Been switched to high flow oxygen at around midnight, currently 10L/min. Denies SOB. Denies cough or sputum production. Denies wheezing. Denies chest pain. Denies fever, chills, or sweating. Constitutional Vitals: Vital Signs Temp Pulse Resp BP Pulse Ox 36.9 C 59 L 27 H 176/74 96 10/27/20 08:01 10/27/20 05:59 10/27/20 08:01 10/27/20 08:01 10/27/20 08:01 Period Temp Pulse Resp BP Sys/Tai Pulse Ox Last 24 Hr 36.2 C-36.9 C 56-68 19-30 137-176/56-100 84-96 Intake and Output 10/26/20 10/27/20 10/27/20 21:59 05:59 13:59 Intake Total 325 Output Total 950 225 Balance -625 -225 Weight 75.705 kg Intake & Output: Intake & Output 10/26/20 10/27/20 10/27/20 21:59 05:59 13:59 Intake Total 325 Output Total 950 225 Balance -625 -225 Weight 75.705 kg Intake: Oral 325 Output: Urine Catheter Amount 950 225 Other: Meal Lunch Percent of Meal Consumed Refused Urine Appearance Clear Clear Uretheral ([place]) Clear Urine Color Dark Yellow Pale Uretheral ([place]) Bright Yellow Urine Odor Normal Stool Size Small Stool Color Brown Stool Consistency Loose # Bowel Movements 1 # of times incontinent of 1 Bowels General appearance: cooperative and no acute distress Exam: Prone Head Head exam: Present atraumatic and normocephalic Eye Eye exam: Present EOMI and PERRL ENT ENT exam: Present mucous membranes moist, normal exam and normal external ear ex am Additional comments: Oxymask in place Neck Neck exam: Present normal inspection; Absent lymphadenopathy, tenderness and thyromegaly Respiratory Respiratory exam: Present wheezes; Absent accessory muscle use, respiratory distress and rhonchi Cardiovascular Cardiovascular exam: Present normal rate and rhythm; Absent JVD GI/Abdominal GI/Abdominal exam: Present normal bowel sounds and soft; Absent organomegaly and tenderness Extremities Exam Extremities exam: Present full ROM, normal capillary refill and normal inspection; Absent tenderness Neurological Exam Neurological exam: Present alert, CN II-XII intact and oriented X3; Absent motor sensory deficit Psychiatric Psychiatric exam: Present normal affect and normal mood; Absent anxious and depressed Skin Skin exam: Present dry and intact OBJ DATA Labs CBC & Chem 7: 10/27/20 05:42 10/27/20 05:42 Labs: Abnormal Lab Results 10/27/20 10/27/20 10/26/20 05:42 05:42 05:37 WBC 15.2 H 13.3 H Hgb 11.0 L 10.9 L Hct 33.2 L MCV 78.0 L 77.4 L MCH 24.4 L 25.4 L RDW 14.6 H 14.8 H Neut % (Auto) 90.1 H 89.8 H Lymph % (Auto) 5.0 L 4.9 L Lymph # (Auto) 0.76 L 0.65 L Absolute Neutrophils 13.73 H 11.96 H Sodium Chloride BUN 49 H Creatinine 1.5 H Glucose 143 H Albumin 2.8 L Globulin 3.9 H Albumin/Globulin Ratio 0.7 L 10/26/20 10/25/20 10/25/20 05:36 06:17 06:17 WBC 13.4 H Hgb 10.7 L Hct 33.7 L MCV 76.4 L MCH 24.3 L RDW Neut % (Auto) 86.6 H Lymph % (Auto) 7.0 L Lymph # (Auto) 0.94 L Absolute Neutrophils 11.59 H Sodium Chloride BUN 42 H 34 H Creatinine 1.3 H 1.4 H Glucose 133 H Albumin 2.5 L 2.6 L Globulin 3.8 H Albumin/Globulin Ratio 0.7 L 0.7 L 10/24/20 06:17 WBC Hgb Hct MCV MCH RDW Neut % (Auto) Lymph % (Auto) Lymph # (Auto) Absolute Neutrophils Sodium 132 L Chloride 95 L BUN 30 H Creatinine 1.4 H Glucose 123 H Albumin 2.9 L Globulin 3.8 H Albumin/Globulin Ratio 0.8 L Meds: Medications Acetaminophen (Acetaminophen 325 Mg Tablet) 650 mg PO Q6HP PRN PRN Reason: PAIN/FEVER > 101 Last Admin: 10/27/20 08:30 Dose: 650 mg Documented by: Albuterol/Ipratropium (Ipratropium/Albuterol 3 Ml Ampul.Neb) 3 ml NEB Q8H [facility] Last Admin: 10/27/20 05:35 Dose: 3 ml Documented by: Albuterol/Ipratropium (Ipratropium/Albuterol 3 Ml Ampul.Neb) 3 ml NEB Q4HP PRN PRN Reason: Shortness Of Breath Amlodipine Besylate (Amlodipine 5 Mg Tablet) 5 mg PO QDAY [facility] Last Admin: 10/27/20 08:31 Dose: 5 mg Documented by: Aspirin (Aspirin 81 Mg Tab.Chew) 81 mg PO QDAY [facility] Last Admin: 10/27/20 08:30 Dose: 81 mg Documented by: Citalopram Hydrobromide (Citalopram 20 Mg Tablet) 40 mg PO DAILY [facility] Last Admin: 10/27/20 08:31 Dose: 40 mg Documented by: Dexamethasone (Dexamethasone 4 Mg Tablet) 6 mg PO DAILY [facility] Last Admin: 10/27/20 08:31 Dose: 6 mg Documented by: Dextrose (Dextrose 50% 50 Ml Vial) 0 ml IV UD PRN PRN Reason: Hypoglycemia Diagnostic Test (Pha) (Accu-Chek 1 Each Strip) 1 each FS ACHS [facility] Last Admin: 10/27/20 08:19 Dose: 1 each Documented by: Dipyridamole (Dipyridamole 25 Mg Tablet) 50 mg PO QID [facility] Last Admin: 10/27/20 08:36 Dose: 50 mg Documented by: Docusate Sodium (Docusate Sodium 100 Mg Capsule) 100 mg PO BID [facility] Last Admin: 10/27/20 08:31 Dose: 100 mg Documented by: Enoxaparin Sodium (Enoxaparin 40 Mg/0.4 Ml Syringe) 40 mg SQ BID [facility] Last Admin: 10/27/20 08:29 Dose: 40 mg Documented by: Furosemide (Furosemide 40 Mg Tablet) 40 mg PO DAILY [facility] Last Admin: 10/27/20 08:31 Dose: 40 mg Documented by: Gabapentin (Gabapentin 100 Mg Capsule) 100 mg PO QDAY [facility] Last Admin: 10/27/20 08:30 Dose: 100 mg Documented by: Glucose (Dextrose 31 Gm Oral.Susp) 15 gm PO PRN PRN PRN Reason: Hypoglycemia Guaifenesin (Guaifenesin/Dextromethorphan Oral Adelita) 10 ml PO Q4HP PRN PRN Reason: Cough Last Admin: 10/27/20 08:26 Dose: 10 ml Documented by: Magnesium Sulfate (Magnesium Sulfate) 2 gm in 50 mls @ 50 mls/hr IV UD PRN PRN Reason: Magnesium </= 1.6 Potassium Chloride 40 meq/ (Dextrose) 520 mls @ 130 mls/hr IV UD PRN PRN Reason: Potassium < 3 REMDESIVIR 100 mg/ Sodium (Chloride) 250 mls @ 500 mls/hr IV Q24H [facility] Stop: 10/28/20 11:29 Last Infusion: 10/26/20 12:30 Dose: Infused Documented by: Insulin Glargine (Insulin Glargine, Human 1 Unit/0.01 Ml) 30 unit SQ QAM [facility] Last Admin: 10/27/20 08:30 Dose: 30 units Documented by: Insulin Human Lispro (Insulin Lispro 1 Unit/0.01 Ml Unit) 0 unit SQ ACHS [facility]; Protocol Last Admin: 10/27/20 08:30 Dose: 2 units Documented by: Lorazepam (Lorazepam 2 Mg/Ml Vial) 1 mg IV Q4HP PRN PRN Reason: ANXIETY/SEDATION Last Admin: 10/25/20 23:21 Dose: 1 mg Documented by: Losartan Potassium (Losartan 50 Mg Tablet) 100 mg PO QDAY [facility] Last Admin: 10/27/20 08:31 Dose: 100 mg Documented by: Metoprolol Succinate (Metoprolol Succinate 50 Mg Tab.Xl.24h) 50 mg PO BID [facility] Last Admin: 10/27/20 08:31 Dose: 50 mg Documented by: Ondansetron HCl (Ondansetron 4 Mg/2 Ml Vial) 4 mg IV Q4HP PRN PRN Reason: Nausea And Vomiting Oxybutynin Chloride (Oxybutynin Chloride 5 Mg Tablet) 5 mg PO QDAY [facility] Last Admin: 10/26/20 08:46 Dose: 5 mg Documented by: Polyethylene Glycol (Polyethylene Glycol 3350 17 Gm Packet) 17 gm PO DAILYP PRN PRN Reason: Constipation Potassium Chloride (Potassium Chloride 20 Meq Tablet) 40 meq PO UD PRN PRN Reason: Potssium is 3-3.5 Potassium Chloride (Potassium Chloride 20 Meq Tablet) 40 meq PO UD PRN PRN Reason: Potassium < 3 Pravastatin Sodium (Pravastatin 40 Mg Tablet) 40 mg PO HS [facility] Last Admin: 10/26/20 22:29 Dose: 40 mg Documented by: Senna (Sennosides 1 Tablet) 2 tab PO DAILYP PRN PRN Reason: Constipation Last Admin: 10/26/20 08:33 Dose: 2 tab Documented by: Sodium Chloride (0.9 % Sodium Chloride 10 Ml Syringe) 10 ml IV Q8 [facility] Last Admin: 10/27/20 05:35 Dose: 10 ml Documented by: Trazodone HCl (Trazodone Hcl 50 Mg Tablet) 50 mg PO QHS PRN PRN Reason: Sleep A/P Assessment and plan (1) Hypochromic microcytic anemia: Status: Acute (2) COVID-19: Status: Acute (3) COPD (chronic obstructive pulmonary disease): Status: Acute (4) Essential (primary) hypertension: Status: Acute (5) Mixed dyslipidemia: Status: Acute (6) Depression: Status: Acute Narrative A/P Narrative: Assessment and Plans: 1. CoVID pneumonia: Stays in inpatient PCU Isolation: airborne and contact Supplemental oxygen titrate to achieve spo2 >=88% given h/o COPD, now with high flow oxygen via oxymask 10L/min Remdesivir Dexamethasone PO Lovenox Lasix cbc w/ auto diff in the morning to trend WBC 2. h/o COPD, stable: Home oxygen requirement 4-5L/min, currently on CPAP as part of treatment of CoVID pneumonia, now with high flow oxygen via oxymask 10L/min Continue bronchodilators PRN wheezing Dexamethasone PO 3. Anemia, microcytic hypochromic: cbc w/ auto diff in the morning to trend H/H; transfuse pRBC if hemoglobin <7.0, active bleeding, or symptomatic 4. Essential HTN: Currently normotensive Continue Metoprolol succinate, Amlodipine and Losartan Lasix 5. Depression: Citalopram GI ppx: not currently indicated DVT ppx: Lovenox Code status: Full Prognosis: extremely guarded Disposition: inpatient PCU Time Spent With Patient Time: Total time spent is greater than 50% in coordination of care (as documented) at patient's floor/unit and/or counseling patient:
[2020-10-27] MEDS: OXYBUTYNIN CHLORIDE 5 MG TABLET PO SCH (08:53)
[2020-10-27] MEDS: REMDESIVIR 100 MG in 0.9 % SODIUM CHLORIDE 250 ML IV SCH (10:02)
[2020-10-27] MEDS: traZODone HCL 50 MG TABLET PO PRN (21:34)
[2020-10-27] MEDS: PRAVASTATIN 40 MG TABLET PO SCH (21:34)
[2020-10-28] MEDS: IPRATROPIUM/ALBUTEROL 3 ML AMPUL.NEB NEB SCH ×3 (05:58→21:30)
[2020-10-28] MEDS: 0.9 % SODIUM CHLORIDE 10 ML SYRINGE IV SCH ×3 (06:00→22:00)
[2020-10-28 06:47] LABS: Basophils # (Auto) 0.01 K/mcL (0.00-0.30); Basophils % (Auto) 0.1 % (0.0-2.0); Eosinophils # (Auto) 0 K/mcL (0.00-0.70); Eosinophils % (Auto) 0 % (0.0-7.0); Hematocrit 35.5 % (34.1-44.9); Hemoglobin 10.9 g/dL (11.2-15.7); Lymphocytes # (Auto) 0.47 K/mcL (1.50-4.80); Lymphocytes % (Auto) 4.8 % (15.5-49.0); Mean Cell Volume 77.9 fL (80.0-100.0); Mean Corpuscular HGB Conc 30.7 g/dL (31.0-36.0); Mean Platelet Volume 10.5 fL (7.4-10.4); Monocytes # (Auto) 0.31 K/mcL (0.10-0.90); Monocytes % (Auto) 3.2 % (1.0-12.0); Neutrophils % (Auto) 91.9 % (38.0-78.0); Platelet Count 324 K/mcL (140-440); RBC 4.56 M/mcL (3.59-5.38); Red Cell Distribution Width 14.7 % (11.5-14.5); WBC 9.8 K/mcL (4.5-11.0)
[2020-10-28 07:31] LABS: ALT/SGPT 13 U/L (<40); AST/SGOT 19 U/L (<32); Albumin 2.6 gm/dL (3.2-5.2); Albumin/Globulin Ratio 0.6 (1.0-2.3); Alkaline Phosphatase 74 U/L (39-117); Bilirubin,Total 0.7 mg/dL (0.1-1.0); Blood Urea Nitrogen 56 mg/dL (8-23); Calcium 10.1 mg/dL (8.6-10.4); Carbon Dioxide 25 mmol/L (22-30); Chloride 102 mmol/L (96-108); Glomerular Filtration Rate 34; Glucose 189 mg/dL (70-105)
--- NOTE | 2020-10-28 08:04 | Internal Med Progress Note ---
SUBJECTIVE Subjective Patient information: Note initiated : 10/28/20 at 8:01 am Service Date, if different from initiated Date: [] Patient: Sharla Michaels a 75 y/o F admitted on 10/19/20 for COVID POSITIVE, SOB. Chief Complaint: [CoVID pneumonia] Interval history: History of present illness: Ms. Michaels is a 75 year old F Patient presents to the ED with shortness of breath cough fever chills. Patient says she has been ill for about 5 days she came in yesterday and was found to be Covid positive she was offered monoclonal antibodies but refused. She is unvaccinated and says she did get vaccinated because she does not drive. Ms Michaels is yet another unvaccinated patient presenting with Covid pneumonia. She has a history of diabetes stroke vascular disease including CAD has obesity and smokes as well as has COPD. In the ED she was hypoxic in the upper 80s on room air put on several liters oxygen. 10/20 Patient feels a little bit better. Says her shortness of breath is better but still present. However nurse had to titrate to 2 to 4 L and she got up to the bedside this morning. Has productive cough. 10/21 Cough present. She says her breathing is improved today. Still requiring 4 to 5 L of oxygen. Sodium within normal limits. cr 1.4. 10/22: Been on 5L oxygen overnight. Afebrile overnight. c/o shortness of breath. c/o productive cough with white sputum. Denies wheezing. Denies chest pain. Denies fever or chill or sweating. Denies general body weakness. 10/23: Desaturated to mid 80s spo2 despite 10L oxygen. Afebrile overnight. Patient is c/o worsening SOB. c/o nonproductive cough. Denies wheezing. Denies fever or chills or sweating. 10/24: Afebrile overnight. On CPAP with FiO2 overnight. Patient is c/o SOB, improving. c/o wheezing. Denies cough or sputum production. Denies fever or chills or sweating. 10/25: Afebrile overnight. On CPAP with FiO2 55% overnight. Unable to obtain subjective due to clinical situations. 10/26: Afebrile overnight. On BiPAP 15/10 FiO2 55% overnight. Been prone overnight. c/o SOB. c/o nonproductive cough, no sputum production or respiratory wheezing. Denies chest pain. Denies fever, chills, or sweating. 10/27: Afebrile overnight. Been prone overnight. Been switched to high flow oxygen at around midnight, currently 10L/min. Denies SOB. Denies cough or sputum production. Denies wheezing. Denies chest pain. Denies fever, chills, or sweating. 10/28: Afebrile overnight. Been prone overnight. Been switched back to BiPAP 12/12, FiO2 55%. Denies SOB. Denies cough or sputum production. Denies wheezing. Denies chest pain. Denies fever, chills, or sweating. Constitutional Vitals: Vital Signs Temp Pulse Resp BP Pulse Ox 36.1 C 52 L 20 149/65 90 10/28/20 04:01 10/28/20 05:00 10/28/20 07:01 10/28/20 07:01 10/28/20 07:01 Period Temp Pulse Resp BP Sys/Tai Pulse Ox Last 24 Hr 36.1 C-36.9 C 45-65 14-31 121-177/52-71 90-100 Intake and Output 10/27/20 10/28/20 10/28/20 21:59 05:59 13:59 Output Total 650 950 Balance -650 -950 Intake & Output: Intake & Output 10/27/20 10/28/20 10/28/20 21:59 05:59 13:59 Output Total 650 950 Balance -650 -950 Output: Urine Catheter Amount 650 950 Other: Urine Appearance Clear Clear Clear Uretheral ([place]) Clear Clear Urine Color Light Leslie Bright Yellow Dark Yellow Uretheral ([place]) Bright Yellow Dark Yellow Urine Odor Normal Uretheral ([place]) Normal Normal General appearance: cooperative and no acute distress Exam: Prone Head Head exam: Present atraumatic and normocephalic Eye Eye exam: Present EOMI and PERRL ENT ENT exam: Present mucous membranes moist, normal exam and normal external ear exam Additional comments: BiPAP in place Neck Neck exam: Present normal inspection; Absent lymphadenopathy, tenderness and thyromegaly Respiratory Respiratory exam: Present rhonchi; Absent accessory muscle use, respiratory distress and wheezes Cardiovascular Cardiovascular exam: Present normal rate and rhythm; Absent JVD GI/Abdominal GI/Abdominal exam: Present normal bowel sounds and soft; Absent organomegaly and tenderness Extremities Exam Extremities exam: Present full ROM, normal capillary refill and normal in spection; Absent tenderness Neurological Exam Neurological exam: Present alert, CN II-XII intact and oriented X3; Absent motor sensory deficit Psychiatric Psychiatric exam: Present normal affect and normal mood; Absent anxious and depressed Skin Skin exam: Present dry and intact OBJ DATA Labs CBC & Chem 7: 10/28/20 05:32 10/28/20 05:32 Labs: Abnormal Lab Results 10/28/20 10/28/20 10/27/20 05:32 05:32 05:42 WBC Hgb 10.9 L Hct MCV 77.9 L MCH 23.9 L MCHC 30.7 L RDW 14.7 H MPV 10.5 H Neut % (Auto) 91.9 H Lymph % (Auto) 4.8 L Lymph # (Auto) 0.47 L Absolute Neutrophils 9.04 H BUN 56 H 49 H Creatinine 1.5 H 1.5 H Glucose 189 H 143 H Albumin 2.6 L 2.8 L Globulin 4.0 H 3.9 H Albumin/Globulin Ratio 0.6 L 0.7 L 10/27/20 10/26/20 10/26/20 05:42 05:37 05:36 WBC 15.2 H 13.3 H Hgb 11.0 L 10.9 L Hct 33.2 L MCV 78.0 L 77.4 L MCH 24.4 L 25.4 L MCHC RDW 14.6 H 14.8 H MPV Neut % (Auto) 90.1 H 89.8 H Lymph % (Auto) 5.0 L 4.9 L Lymph # (Auto) 0.76 L 0.65 L Absolute Neutrophils 13.73 H 11.96 H BUN 42 H Creatinine 1.3 H Glucose 133 H Albumin 2.5 L Globulin 3.8 H Albumin/Globulin Ratio 0.7 L Meds: Medications Acetaminophen (Acetaminophen 325 Mg Tablet) 650 mg PO Q6HP PRN PRN Reason: PAIN/FEVER > 101 Last Admin: 10/27/20 08:30 Dose: 650 mg Documented by: Albuterol/Ipratropium (Ipratropium/Albuterol 3 Ml Ampul.Neb) 3 ml NEB Q8H [facility] Last Admin: 10/28/20 05:58 Dose: 3 ml Documented by: Albuterol/Ipratropium (Ipratropium/Albuterol 3 Ml Ampul.Neb) 3 ml NEB Q4HP PRN PRN Reason: Shortness Of Breath Last Admin: 10/27/20 09:48 Dose: 3 ml Documented by: Amlodipine Besylate (Amlodipine 5 Mg Tablet) 5 mg PO QDAY [facility] Last Admin: 10/27/20 08:31 Dose: 5 mg Documented by: Aspirin (Aspirin 81 Mg Tab.Chew) 81 mg PO QDAY [facility] Last Admin: 10/27/20 08:30 Dose: 81 mg Documented by: Citalopram Hydrobromide (Citalopram 20 Mg Tablet) 40 mg PO DAILY [facility] Last Admin: 10/27/20 08:31 Dose: 40 mg Documented by: Dexamethasone (Dexamethasone 4 Mg Tablet) 6 mg PO DAILY [facility] Last Admin: 10/27/20 08:31 Dose: 6 mg Documented by: Dextrose (Dextrose 50% 50 Ml Vial) 0 ml IV UD PRN PRN Reason: Hypoglycemia Diagnostic Test (Pha) (Accu-Chek 1 Each Strip) 1 each FS ACHS [facility] Last Admin: 10/27/20 21:34 Dose: 1 each Documented by: Dipyridamole (Dipyridamole 25 Mg Tablet) 50 mg PO QID [facility] Last Admin: 10/27/20 21:34 Dose: 50 mg Documented by: Docusate Sodium (Docusate Sodium 100 Mg Capsule) 100 mg PO BID [facility] Last Admin: 10/27/20 21:34 Dose: 100 mg Documented by: Enoxaparin Sodium (Enoxaparin 40 Mg/0.4 Ml Syringe) 40 mg SQ BID [facility] Last Admin: 10/27/20 21:33 Dose: 40 mg Documented by: Furosemide (Furosemide 40 Mg Tablet) 40 mg PO DAILY [facility] Last Admin: 10/27/20 08:31 Dose: 40 mg Documented by: Gabapentin (Gabapentin 100 Mg Capsule) 100 mg PO QDAY [facility] Last Admin: 10/27/20 08:30 Dose: 100 mg Documented by: Glucose (Dextrose 31 Gm Oral.Susp) 15 gm PO PRN PRN PRN Reason: Hypoglycemia Guaifenesin (Guaifenesin/Dextromethorphan Oral Adelita) 10 ml PO Q4HP PRN PRN Reason: Cough Last Admin: 10/27/20 08:26 Dose: 10 ml Documented by: Magnesium Sulfate (Magnesium Sulfate) 2 gm in 50 mls @ 50 mls/hr IV UD PRN PRN Reason: Magnesium </= 1.6 Potassium Chloride 40 meq/ (Dextrose) 520 mls @ 130 mls/hr IV UD PRN PRN Reason: Potassium < 3 REMDESIVIR 100 mg/ Sodium (Chloride) 250 mls @ 500 mls/hr IV Q24H [facility] Stop: 10/28/20 11:29 Last Infusion: 10/27/20 11:02 Dose: Infused Documented by: Insulin Glargine (Insulin Glargine, Human 1 Unit/0.01 Ml) 30 unit SQ QAM [facility] Last Admin: 10/27/20 08:30 Dose: 30 units Documented by: Insulin Human Lispro (Insulin Lispro 1 Unit/0.01 Ml Unit) 0 unit SQ ACHS [facility]; Protocol Last Admin: 10/27/20 21:10 Dose: Not Given Documented by: Lorazepam (Lorazepam 2 Mg/Ml Vial) 1 mg IV Q4HP PRN PRN Reason: ANXIETY/SEDATION Last Admin: 10/25/20 23:21 Dose: 1 mg Documented by: Losartan Potassium (Losartan 50 Mg Tablet) 100 mg PO QDAY [facility] Last Admin: 10/27/20 08:31 Dose: 100 mg Documented by: Metoprolol Succinate (Metoprolol Succinate 50 Mg Tab.Xl.24h) 50 mg PO BID [facility] Last Admin: 10/27/20 21:34 Dose: 50 mg Documented by: Ondansetron HCl (Ondansetron 4 Mg/2 Ml Vial) 4 mg IV Q4HP PRN PRN Reason: Nausea And Vomiting Oxybutynin Chloride (Oxybutynin Chloride 5 Mg Tablet) 5 mg PO QDAY [facility] Last Admin: 10/27/20 08:53 Dose: 5 mg Documented by: Polyethylene Glycol (Polyethylene Glycol 3350 17 Gm Packet) 17 gm PO DAILYP PRN PRN Reason: Constipation Potassium Chloride (Potassium Chloride 20 Meq Tablet) 40 meq PO UD PRN PRN Reason: Potssium is 3-3.5 Potassium Chloride (Potassium Chloride 20 Meq Tablet) 40 meq PO UD PRN PRN Reason: Potassium < 3 Pravastatin Sodium (Pravastatin 40 Mg Tablet) 40 mg PO HS [facility] Last Admin: 10/27/20 21:34 Dose: 40 mg Documented by: Senna (Sennosides 1 Tablet) 2 tab PO DAILYP PRN PRN Reason: Constipation Last Admin: 10/26/20 08:33 Dose: 2 tab Documented by: Sodium Chloride (0.9 % Sodium Chloride 10 Ml Syringe) 10 ml IV Q8 [facility] Last Admin: 10/28/20 06:00 Dose: 10 ml Documented by: Trazodone HCl (Trazodone Hcl 50 Mg Tablet) 50 mg PO QHS PRN PRN Reason: Sleep Last Admin: 10/27/20 21:34 Dose: 50 mg Documented by: A/P Assessment and plan (1) Hypochromic microcytic anemia: Status: Acute (2) COVID-19: Status: Acute (3) COPD (chronic obstructive pulmonary disease): Status: Acute (4) Essential (primary) hypertension: Status: Acute (5) Mixed dyslipidemia: Status: Acute (6) Depression: Status: Acute Narrative A/P Narrative: Assessment and Plans: 1. CoVID pneumonia: Stays in inpatient PCU Isolation: airborne and contact Supplemental oxygen titrate to achieve spo2 >=88% given h/o COPD, now with BiPAP 15/10, FiO2 55% Remdesivir X10 days, finishing today Dexamethasone Lovenox Lasix cbc w/ auto diff in the morning to trend WBC 2. h/o COPD, stable: Home oxygen requirement 4-5L/min, currently on CPAP as part of treatment of CoVID pneumonia, now with BiPAP 15/10, FiO2 55% Continue bronchodilators PRN wheezing Dexamethasone PO 3. Anemia, microcytic hypochromic: cbc w/ auto diff in the morning to trend H/H; transfuse pRBC if hemoglobin <7.0, active bleeding, or symptomatic 4. Essential HTN: Currently normotensive Continue Metoprolol succinate, Amlodipine and Losartan Lasix 5. Depression: Citalopram GI ppx: not currently indicated DVT ppx: Lovenox Code status: Full Prognosis: extremely guarded Disposition: inpatient PCU Time Spent With Patient Time: Total time spent is greater than 50% in coordination of care (as documented) at patient's floor/unit and/or counseling patient:
--- NOTE | 2020-10-28 08:33 | XRay Report ---
HISTORY: Follow-up COVID pneumonia FINDINGS: Moderate diffuse alveolar infiltrates are present throughout both lungs. The greatest involvement is in the right upper lobe. There has been little change since 10/25/20. No pneumothorax or pleural effusion are present. The heart size is normal. IMPRESSION: Stable, moderate, diffuse bilateral pneumonia Interpreted and Authenticated by: Alfa Juarez 10/28/20
[2020-10-28] MEDS: INSULIN LISPRO 1 UNIT/0.01 ML UNIT SQ SCH ×4 (08:40→21:07)
[2020-10-28] MEDS: INSULIN GLARGINE, HUMAN 1 UNIT/0.01 ML SQ SCH (08:41)
[2020-10-28] MEDS: ENOXAPARIN 40 MG/0.4 ML SYRINGE SQ SCH ×2 (10:53→20:52)
[2020-10-28] MEDS: POLYETHYLENE GLYCOL 3350 17 GM PACKET PO PRN (10:54)
[2020-10-28] MEDS: DIPYRIDAMOLE 25 MG TABLET PO SCH ×4 (10:55→20:53)
[2020-10-28] MEDS: CITALOPRAM 20 MG TABLET PO SCH (10:55)
[2020-10-28] MEDS: GABAPENTIN 100 MG CAPSULE PO SCH (10:55)
[2020-10-28] MEDS: ASPIRIN 81 MG TAB.CHEW PO SCH (10:56)
[2020-10-28] MEDS: LOSARTAN 50 MG TABLET PO SCH (10:56)
[2020-10-28] MEDS: amLODIPine 5 MG TABLET PO SCH (10:56)
[2020-10-28] MEDS: OXYBUTYNIN CHLORIDE 5 MG TABLET PO SCH (10:56)
[2020-10-28] MEDS: DOCUSATE SODIUM 100 MG CAPSULE PO SCH ×2 (10:56→20:53)
[2020-10-28] MEDS: DEXAMETHASONE 4 MG TABLET PO SCH (10:56)
[2020-10-28] MEDS: FUROSEMIDE 40 MG TABLET PO SCH (10:56)
[2020-10-28] MEDS: SENNOSIDES 1 TABLET PO PRN (10:57)
[2020-10-28] MEDS: REMDESIVIR 100 MG in 0.9 % SODIUM CHLORIDE 250 ML IV SCH (10:58)
[2020-10-28] MEDS: METOPROLOL SUCCINATE 50 MG TAB.XL.24H PO SCH ×2 (11:10→20:53)
--- NOTE | 2020-10-28 13:15 | Internal Med Progress Note ---
SUBJECTIVE Subjective Patient information: Note initiated : 10/28/20 at 1:09 pm Service Date, if different from initiated Date: [] Patient: Sharla Michaels a 75 y/o F admitted on 10/19/20 for COVID POSITIVE, SOB. Chief Complaint: [] Interval history: History of present illness: Ms. Michaels is a 75 year old F Patient presents to the ED with shortness of breath cough fever chills. Patient says she has been ill for about 5 days she came in yesterday and was found to be Covid positive she was offered monoclonal antibodies but refused. She is unvaccinated and says she did get vaccinated because she does not drive. Ms Michaels is yet another unvaccinated patient presenting with Covid pneumonia. She has a history of diabetes stroke vascular disease including CAD has obesity and smokes as well as has COPD. In the ED she was hypoxic in the upper 80s on room air put on several liters oxygen. 10/20 Patient feels a little bit better. Says her shortness of breath is better but still present. However nurse had to titrate to 2 to 4 L and she got up to the bedside this morning. Has productive cough. 10/21 Cough present. She says her breathing is improved today. Still requiring 4 to 5 L of oxygen. Sodium within normal limits. cr 1.4. 10/22: Been on 5L oxygen overnight. Afebrile overnight. c/o shortness of breath. c/o productive cough with white sputum. Denies wheezing. Denies chest pain. Denies fever or chill or sweating. Denies general body weakness. 10/23: Desaturated to mid 80s spo2 despite 10L oxygen. Afebrile overnight. Patient is c/o worsening SOB. c/o nonproductive cough. Denies wheezing. Denies fever or chills or sweating. 10/24: Afebrile overnight. On CPAP with FiO2 overnight. Patient is c/o SOB, improving. c/o wheezing. Denies cough or sputum production. Denies fever or chills or sweating. 10/25: Afebrile overnight. On CPAP with FiO2 55% overnight. Unable to obtain subjective due to clinical situations. 10/26: Afebrile overnight. On BiPAP 15/10 FiO2 55% overnight. Been prone overnight. c/o SOB. c/o nonproductive cough, no sputum production or respiratory wheezing. Denies chest pain. Denies fever, chills, or sweating. 10/27: Afebrile overnight. Been prone overnight. Been switched to high flow oxygen at around midnight, currently 10L/min. Denies SOB. Denies cough or sputum production. Denies wheezing. Denies chest pain. Denies fever, chills, or sweating. 10/28: Afebrile overnight. Been prone overnight. Been switched back to BiPAP 12/12, FiO2 55%. Denies SOB. Denies cough or sputum production. Denies wheezing. Denies chest pain. Denies fever, chills, or sweating. 10/29: Review of Systems: denies headache/fever/chills/nausea/vomiting/chest or abdominal pain/diarrhea. Otherwise see above. Constitutional Vitals: Vital Signs Temp Pulse Resp BP Pulse Ox 97.0 F 52 L 20 165/133 99 10/28/20 12:01 10/28/20 11:29 10/28/20 12:01 10/28/20 12:01 10/28/20 12:01 Period Temp Pulse Resp BP Sys/Tai Pulse Ox Last 24 Hr 96.9 F-98.2 F 45-65 15-28 121-165/52-133 90-100 Intake and Output 10/27/20 10/28/20 10/28/20 21:59 05:59 13:59 Intake Total 250 Output Total 650 950 Balance -650 -950 250 Intake & Output: Intake & Output 10/27/20 10/28/20 10/28/20 21:59 05:59 13:59 Intake Total 250 Output Total 650 950 Balance -650 -950 250 Intake: IV 250 Veklury 100 mg In Sodium 250 Chloride 0.9% 250 ml @ 500 mls/ hr IV Q24H [facility] Rx#:[id number] Output: Urine Catheter Amount 650 950 Other: Urine Appearance Clear Clear Clear Uretheral ([place]) Clear Clear Urine Color Light Leslie Bright Yellow Dark Yellow Uretheral ([place]) Bright Yellow Dark Yellow Urine Odor Normal Uretheral ([place]) Normal Normal Exam: General: Alert, Awake, No acute Distress, obese Eyes/N/T: EOMI, Head/Neck: neck supple, CV: RRR, No murmurs, Pulm: Diminished b/l, rhonchi b/l Abd: soft, nontender, +BS x4 Ext: no clubbing/cyanosis, trace b/l LE edema Neuro: Alert, no focal deficits, moves all extremities, Skin: warm/dry OBJ DATA Labs CBC & Chem 7: 10/28/20 05:32 10/28/20 05:32 Labs: Abnormal Lab Results 10/28/20 10/28/20 10/27/20 05:32 05:32 05:42 WBC Hgb 10.9 L Hct MCV 77.9 L MCH 23.9 L MCHC 30.7 L RDW 14.7 H MPV 10.5 H Neut % (Auto) 91.9 H Lymph % (Auto) 4.8 L Lymph # (Auto) 0.47 L Absolute Neutrophils 9.04 H BUN 56 H 49 H Creatinine 1.5 H 1.5 H Glucose 189 H 143 H Albumin 2.6 L 2.8 L Globulin 4.0 H 3.9 H Albumin/Globulin Ratio 0.6 L 0.7 L 10/27/20 10/26/20 10/26/20 05:42 05:37 05:36 WBC 15.2 H 13.3 H Hgb 11.0 L 10.9 L Hct 33.2 L MCV 78.0 L 77.4 L MCH 24.4 L 25.4 L MCHC RDW 14.6 H 14.8 H MPV Neut % (Auto) 90.1 H 89.8 H Lymph % (Auto) 5.0 L 4.9 L Lymph # (Auto) 0.76 L 0.65 L Absolute Neutrophils 13.73 H 11.96 H BUN 42 H Creatinine 1.3 H Glucose 133 H Albumin 2.5 L Globulin 3.8 H Albumin/Globulin Ratio 0.7 L Meds: Medications Acetaminophen (Acetaminophen 325 Mg Tablet) 650 mg PO Q6HP PRN PRN Reason: PAIN/FEVER > 101 Last Admin: 10/27/20 08:30 Dose: 650 mg Documented by: Albuterol/Ipratropium (Ipratropium/Albuterol 3 Ml Ampul.Neb) 3 ml NEB Q8H NIURKA Last Admin: 10/28/20 05:58 Dose: 3 ml Documented by: Albuterol/Ipratropium (Ipratropium/Albuterol 3 Ml Ampul.Neb) 3 ml NEB Q4HP PRN PRN Reason: Shortness Of Breath Last Admin: 10/27/20 09:48 Dose: 3 ml Documented by: Amlodipine Besylate (Amlodipine 5 Mg Tablet) 5 mg PO QDAY [facility] Last Admin: 10/28/20 10:56 Dose: 5 mg Documented by: Aspirin (Aspirin 81 Mg Tab.Chew) 81 mg PO QDAY [facility] Last Admin: 10/28/20 10:56 Dose: 81 mg Documented by: Citalopram Hydrobromide (Citalopram 20 Mg Tablet) 40 mg PO DAILY [facility] Last Admin: 10/28/20 10:55 Dose: 40 mg Documented by: Dexamethasone (Dexamethasone 4 Mg Tablet) 6 mg PO DAILY [facility] Last Admin: 10/28/20 10:56 Dose: 6 mg Documented by: Dextrose (Dextrose 50% 50 Ml Vial) 0 ml IV UD PRN PRN Reason: Hypoglycemia Diagnostic Test (Pha) (Accu-Chek 1 Each Strip) 1 each FS ACHS [facility] Last Admin: 10/28/20 12:28 Dose: 1 each Documented by: Dipyridamole (Dipyridamole 25 Mg Tablet) 50 mg PO QID [facility] Last Admin: 10/28/20 12:37 Dose: 50 mg Documented by: Docusate Sodium (Docusate Sodium 100 Mg Capsule) 100 mg PO BID [facility] Last Admin: 10/28/20 10:56 Dose: 100 mg Documented by: Enoxaparin Sodium (Enoxaparin 40 Mg/0.4 Ml Syringe) 40 mg SQ BID [facility] Last Admin: 10/28/20 10:53 Dose: 40 mg Documented by: Furosemide (Furosemide 40 Mg Tablet) 40 mg PO DAILY [facility] Last Admin: 10/28/20 10:56 Dose: 40 mg Documented by: Gabapentin (Gabapentin 100 Mg Capsule) 100 mg PO QDAY [facility] Last Admin: 10/28/20 10:55 Dose: 100 mg Documented by: Glucose (Dextrose 31 Gm Oral.Susp) 15 gm PO PRN PRN PRN Reason: Hypoglycemia Guaifenesin (Guaifenesin/Dextromethorphan Oral Adelita) 10 ml PO Q4HP PRN PRN Reason: Cough Last Admin: 10/27/20 08:26 Dose: 10 ml Documented by: Magnesium Sulfate (Magnesium Sulfate) 2 gm in 50 mls @ 50 mls/hr IV UD PRN PRN Reason: Magnesium </= 1.6 Potassium Chloride 40 meq/ (Dextrose) 520 mls @ 130 mls/hr IV UD PRN PRN Reason: Potassium < 3 Insulin Glargine (Insulin Glargine, Human 1 Unit/0.01 Ml) 30 unit SQ QAM [facility] Last Admin: 10/28/20 08:41 Dose: 30 units Documented by: Insulin Human Lispro (Insulin Lispro 1 Unit/0.01 Ml Unit) 0 unit SQ ACHS [facility]; Protocol Last Admin: 10/28/20 12:29 Dose: Not Given Documented by: Lorazepam (Lorazepam 2 Mg/Ml Vial) 1 mg IV Q4HP PRN PRN Reason: ANXIETY/SEDATION Last Admin: 10/25/20 23:21 Dose: 1 mg Documented by: Losartan Potassium (Losartan 50 Mg Tablet) 100 mg PO QDAY [facility] Last Admin: 10/28/20 10:56 Dose: 100 mg Documented by: Metoprolol Succinate (Metoprolol Succinate 50 Mg Tab.Xl.24h) 50 mg PO BID [facility] Last Admin: 10/28/20 11:10 Dose: Not Given Documented by: Ondansetron HCl (Ondansetron 4 Mg/2 Ml Vial) 4 mg IV Q4HP PRN PRN Reason: Nausea And Vomiting Oxybutynin Chloride (Oxybutynin Chloride 5 Mg Tablet) 5 mg PO QDAY [facility] Last Admin: 10/28/20 10:56 Dose: 5 mg Documented by: Polyethylene Glycol (Polyethylene Glycol 3350 17 Gm Packet) 17 gm PO DAILYP PRN PRN Reason: Constipation Last Admin: 10/28/20 10:54 Dose: 17 gm Documented by: Potassium Chloride (Potassium Chloride 20 Meq Tablet) 40 meq PO UD PRN PRN Reason: Potssium is 3-3.5 Potassium Chloride (Potassium Chloride 20 Meq Tablet) 40 meq PO UD PRN PRN Reason: Potassium < 3 Pravastatin Sodium (Pravastatin 40 Mg Tablet) 40 mg PO HS [facility] Last Admin: 10/27/20 21:34 Dose: 40 mg Documented by: Senna (Sennosides 1 Tablet) 2 tab PO DAILYP PRN PRN Reason: Constipation Last Admin: 10/28/20 10:57 Dose: 2 tab Documented by: Sodium Chloride (0.9 % Sodium Chloride 10 Ml Syringe) 10 ml IV Q8 NIURKA Last Admin: 10/28/20 12:30 Dose: 10 ml Documented by: Trazodone HCl (Trazodone Hcl 50 Mg Tablet) 50 mg PO QHS PRN PRN Reason: Sleep Last Admin: 10/27/20 21:34 Dose: 50 mg Documented by: A/P Narrative A/P Narrative: A: *Covid pneumonia: -afebrile *Acute hypoxic respiratory failure: -on bipap @ 55% *COPD(??? 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 *h/o CAD w/CABG & PVD w/stents: *h/o CVA: *CKD IIIb: stable *Anemia, chronic: *HTN/HLD: *Depression: *GERD: *Obesity: * P: -Remdesivir finished / Dexamethasone -O2 supp, wean as able with goal 89-94% -Proning and mobilization, IS/Acapella, prn nebs -lasix -cont losartan/BB/norvasc -cont on ASA/Dipyradamole -basal (increased need while on dexameth) and SSI -Smoking cessation counseling -PT/OT -ppx: Lovenox twice daily /home PPI Code status: full Prognosis: extremely guarded Time Spent With Patient Time: Total time spent is greater than 50% in coordination of care (as documented) at patient's floor/unit and/or counseling patient:
[2020-10-28] MEDS: PRAVASTATIN 40 MG TABLET PO SCH (20:54)
--- NOTE | 2020-10-29 07:28 | Internal Med Progress Note ---
SUBJECTIVE Subjective Patient information: Note initiated : 10/29/20 at 7:22 am Service Date, if different from initiated Date: [] Patient: Sharla Michaels a 75 y/o F admitted on 10/19/20 for COVID POSITIVE, SOB. Chief Complaint: [] Interval history: History of present illness: Ms. Michaels is a 75 year old F Patient presents to the ED with shortness of breath cough fever chills. Patient says she has been ill for about 5 days she came in yesterday and was found to be Covid positive she was offered monoclonal antibodies but refused. She is unvaccinated and says she did get vaccinated because she does not drive. Ms Michaels is yet another unvaccinated patient presenting with Covid pneumonia. She has a history of diabetes stroke vascular disease including CAD has obesity and smokes as well as has COPD. In the ED she was hypoxic in the upper 80s on room air put on several liters oxygen. 10/20 Patient feels a little bit better. Says her shortness of breath is better but still present. However nurse had to titrate to 2 to 4 L and she got up to the bedside this morning. Has productive cough. 10/21 Cough present. She says her breathing is improved today. Still requiring 4 to 5 L of oxygen. Sodium within normal limits. cr 1.4. 10/22: Been on 5L oxygen overnight. Afebrile overnight. c/o shortness of breath. c/o productive cough with white sputum. Denies wheezing. Denies chest pain. Denies fever or chill or sweating. Denies general body weakness. 10/23: Desaturated to mid 80s spo2 despite 10L oxygen. Afebrile overnight. Patient is c/o worsening SOB. c/o nonproductive cough. Denies wheezing. Denies fever or chills or sweating. 10/24: Afebrile overnight. On CPAP with FiO2 overnight. Patient is c/o SOB, improving. c/o wheezing. Denies cough or sputum production. Denies fever or chills or sweating. 10/25: Afebrile overnight. On CPAP with FiO2 55% overnight. Unable to obtain subjective due to clinical situations. 10/26: Afebrile overnight. On BiPAP 15/10 FiO2 55% overnight. Been prone overnight. c/o SOB. c/o nonproductive cough, no sputum production or respiratory wheezing. Denies chest pain. Denies fever, chills, or sweating. 10/27: Afebrile overnight. Been prone overnight. Been switched to high flow oxygen at around midnight, currently 10L/min. Denies SOB. Denies cough or sputum production. Denies wheezing. Denies chest pain. Denies fever, chills, or sweating. 10/28: Afebrile overnight. Been prone overnight. Been switched back to BiPAP 15/10, FiO2 55%. Denies SOB. Denies cough or sputum production. Denies wheezing. Denies chest pain. Denies fever, chills, or sweating. 10/29 Patient feels little bit better than yesterday. Occasional cough. Shortness of breath comes and goes. Currently on 8 to 10 L oxygen mask. Review of Systems: denies headache/fever/chills/nausea/vomiting/chest or abdominal pain/diarrhea. Otherwise see above. Constitutional Vitals: Vital Signs Temp Pulse Resp BP Pulse Ox 97.9 F 61 21 159/66 93 10/29/20 00:01 10/29/20 00:57 10/29/20 05:01 10/29/20 05:01 10/29/20 05:01 Period Temp Pulse Resp BP Sys/Tai Pulse Ox Last 24 Hr 97.0 F-98.1 F 52-68 18-28 125-165/55-133 90-99 Intake and Output 10/28/20 10/29/20 10/29/20 21:59 05:59 13:59 Intake Total 400 Output Total 450 750 Balance -450 -350 Weight 73.89 kg Intake & Output: Intake & Output 10/28/20 10/29/20 10/29/20 21:59 05:59 13:59 Intake Total 400 Output Total 450 750 Balance -450 -350 Weight 73.89 kg Intake: Nourishment/Supplement quantity 200 (ml) Oral 200 Output: Urine Catheter Amount 450 750 Other: Nourishment/Supplement name glucerna Urine Appearance Clear Clear Uretheral ([place]) Clear Urine Color Dark Yellow Bright Yellow Uretheral ([place]) Bright Yellow Urine Odor Normal Uretheral ([place]) Normal # Bowel Movements 0 # of times incontinent of 0 Bowels Exam: General: Alert, Awake, No acute Distress, obese Eyes/N/T: EOMI, Head/Neck: neck supple, CV: RRR, No murmurs, Pulm: Diminished b/l with mild rhonchi b/l Abd: soft, nontender, +BS x4 Ext: no clubbing/cyanosis, trace b/l LE edema Neuro: Alert, no focal deficits, moves all extremities, Skin: warm/dry OBJ DATA Labs CBC & Chem 7: 10/28/20 05:32 10/28/20 05:32 Labs: Abnormal Lab Results 10/28/20 10/28/20 10/27/20 05:32 05:32 05:42 WBC Hgb 10.9 L MCV 77.9 L MCH 23.9 L MCHC 30.7 L RDW 14.7 H MPV 10.5 H Neut % (Auto) 91.9 H Lymph % (Auto) 4.8 L Lymph # (Auto) 0.47 L Absolute Neutrophils 9.04 H BUN 56 H 49 H Creatinine 1.5 H 1.5 H Glucose 189 H 143 H Albumin 2.6 L 2.8 L Globulin 4.0 H 3.9 H Albumin/Globulin Ratio 0.6 L 0.7 L 10/27/20 10/26/20 05:42 05:36 WBC 15.2 H Hgb 11.0 L MCV 78.0 L MCH 24.4 L MCHC RDW 14.6 H MPV Neut % (Auto) 90.1 H Lymph % (Auto) 5.0 L Lymph # (Auto) 0.76 L Absolute Neutrophils 13.73 H BUN 42 H Creatinine 1.3 H Glucose 133 H Albumin 2.5 L Globulin 3.8 H Albumin/Globulin Ratio 0.7 L Meds: Medications Acetaminophen (Acetaminophen 325 Mg Tablet) 650 mg PO Q6HP PRN PRN Reason: PAIN/FEVER > 101 Last Admin: 10/27/20 08:30 Dose: 650 mg Documented by: Albuterol/Ipratropium (Ipratropium/Albuterol 3 Ml Ampul.Neb) 3 ml NEB Q8H NIURKA Last Admin: 10/28/20 21:30 Dose: 3 ml Documented by: Albuterol/Ipratropium (Ipratropium/Albuterol 3 Ml Ampul.Neb) 3 ml NEB Q4HP PRN PRN Reason: Shortness Of Breath Last Admin: 10/27/20 09:48 Dose: 3 ml Documented by: Amlodipine Besylate (Amlodipine 5 Mg Tablet) 5 mg PO QDAY [facility] Last Admin: 10/28/20 10:56 Dose: 5 mg Documented by: Aspirin (Aspirin 81 Mg Tab.Chew) 81 mg PO QDAY [facility] Last Admin: 10/28/20 10:56 Dose: 81 mg Documented by: Citalopram Hydrobromide (Citalopram 20 Mg Tablet) 40 mg PO DAILY [facility] Last Admin: 10/28/20 10:55 Dose: 40 mg Documented by: Dexamethasone (Dexamethasone 4 Mg Tablet) 6 mg PO DAILY [facility] Last Admin: 10/28/20 10:56 Dose: 6 mg Documented by: Dextrose (Dextrose 50% 50 Ml Vial) 0 ml IV UD PRN PRN Reason: Hypoglycemia Diagnostic Test (Pha) (Accu-Chek 1 Each Strip) 1 each FS ACHS [facility] Last Admin: 10/28/20 21:07 Dose: 1 each Documented by: Dipyridamole (Dipyridamole 25 Mg Tablet) 50 mg PO QID [facility] Last Admin: 10/28/20 20:53 Dose: 50 mg Documented by: Docusate Sodium (Docusate Sodium 100 Mg Capsule) 100 mg PO BID [facility] Last Admin: 10/28/20 20:53 Dose: 100 mg Documented by: Enoxaparin Sodium (Enoxaparin 40 Mg/0.4 Ml Syringe) 40 mg SQ BID [facility] Last Admin: 10/28/20 20:52 Dose: 40 mg Documented by: Furosemide (Furosemide 40 Mg Tablet) 40 mg PO DAILY [facility] Last Admin: 10/28/20 10:56 Dose: 40 mg Documented by: Gabapentin (Gabapentin 100 Mg Capsule) 100 mg PO QDAY [facility] Last Admin: 10/28/20 10:55 Dose: 100 mg Documented by: Glucose (Dextrose 31 Gm Oral.Susp) 15 gm PO PRN PRN PRN Reason: Hypoglycemia Guaifenesin (Guaifenesin/Dextromethorphan Oral Adelita) 10 ml PO Q4HP PRN PRN Reason: Cough Last Admin: 10/27/20 08:26 Dose: 10 ml Documented by: Magnesium Sulfate (Magnesium Sulfate) 2 gm in 50 mls @ 50 mls/hr IV UD PRN PRN Reason: Magnesium </= 1.6 Potassium Chloride 40 meq/ (Dextrose) 520 mls @ 130 mls/hr IV UD PRN PRN Reason: Potassium < 3 Insulin Glargine (Insulin Glargine, Human 1 Unit/0.01 Ml) 30 unit SQ QAM [facility] Last Admin: 10/28/20 08:41 Dose: 30 units Documented by: Insulin Human Lispro (Insulin Lispro 1 Unit/0.01 Ml Unit) 0 unit SQ ACHS [facility]; Protocol Last Admin: 10/28/20 21:07 Dose: 6 units Documented by: Lorazepam (Lorazepam 2 Mg/Ml Vial) 1 mg IV Q4HP PRN PRN Reason: ANXIETY/SEDATION Last Admin: 10/25/20 23:21 Dose: 1 mg Documented by: Losartan Potassium (Losartan 50 Mg Tablet) 100 mg PO QDAY [facility] Last Admin: 10/28/20 10:56 Dose: 100 mg Documented by: Metoprolol Succinate (Metoprolol Succinate 50 Mg Tab.Xl.24h) 50 mg PO BID [facility] Last Admin: 10/28/20 20:53 Dose: 50 mg Documented by: Ondansetron HCl (Ondansetron 4 Mg/2 Ml Vial) 4 mg IV Q4HP PRN PRN Reason: Nausea And Vomiting Oxybutynin Chloride (Oxybutynin Chloride 5 Mg Tablet) 5 mg PO QDAY [facility] Last Admin: 10/28/20 10:56 Dose: 5 mg Documented by: Polyethylene Glycol (Polyethylene Glycol 3350 17 Gm Packet) 17 gm PO DAILYP PRN PRN Reason: Constipation Last Admin: 10/28/20 10:54 Dose: 17 gm Documented by: Potassium Chloride (Potassium Chloride 20 Meq Tablet) 40 meq PO UD PRN PRN Reason: Potssium is 3-3.5 Potassium Chloride (Potassium Chloride 20 Meq Tablet) 40 meq PO UD PRN PRN Reason: Potassium < 3 Pravastatin Sodium (Pravastatin 40 Mg Tablet) 40 mg PO HS [facility] Last Admin: 10/28/20 20:54 Dose: 40 mg Documented by: Senna (Sennosides 1 Tablet) 2 tab PO DAILYP PRN PRN Reason: Constipation Last Admin: 10/28/20 10:57 Dose: 2 tab Documented by: Sodium Chloride (0.9 % Sodium Chloride 10 Ml Syringe) 10 ml IV Q8 [facility] Last Admin: 10/28/20 22:00 Dose: 10 ml Documented by: Trazodone HCl (Trazodone Hcl 50 Mg Tablet) 50 mg PO QHS PRN PRN Reason: Sleep Last Admin: 10/27/20 21:34 Dose: 50 mg Documented by: A/P Narrative A/P Narrative: A: *Covid pneumonia w/ARDS: -afebrile *Acute hypoxic respiratory failure: -on Oxymask @ 8-10L, no bipap o/n *COPD(not 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 *h/o CAD w/CABG & PVD w/stents: *h/o CVA: *CKD IIIb: stable *Anemia, chronic: *HTN/HLD: *Depression: *GERD: *Obesity: * P: -Remdesivir finished / Dexamethasone -O2 supp, wean as able with goal 89-94% -Proning and mobilization, IS/Acapella, prn nebs -d/c lasix -cont losartan/BB/norvasc -cont on ASA/Dipyradamole -basal and SSI -Smoking cessation counseling -PT/OT -ppx: Lovenox twice daily /home PPI Code status: full Prognosis: extremely guarded Time Spent With Patient Time: Total time spent is greater than 50% in coordination of care (as documented) at patient's floor/unit and/or counseling patient:
[2020-10-29] MEDS: 0.9 % SODIUM CHLORIDE 10 ML SYRINGE IV SCH ×3 (07:37→20:22)
[2020-10-29] MEDS: IPRATROPIUM/ALBUTEROL 3 ML AMPUL.NEB NEB SCH ×3 (08:03→23:18)
[2020-10-29] MEDS: INSULIN GLARGINE, HUMAN 1 UNIT/0.01 ML SQ SCH (08:05)
[2020-10-29] MEDS: OXYBUTYNIN CHLORIDE 5 MG TABLET PO SCH (08:05)
[2020-10-29] MEDS: DOCUSATE SODIUM 100 MG CAPSULE PO SCH ×2 (08:06→20:21)
[2020-10-29] MEDS: CITALOPRAM 20 MG TABLET PO SCH (08:06)
[2020-10-29] MEDS: DEXAMETHASONE 4 MG TABLET PO SCH (08:06)
[2020-10-29] MEDS: GABAPENTIN 100 MG CAPSULE PO SCH (08:06)
[2020-10-29] MEDS: DIPYRIDAMOLE 25 MG TABLET PO SCH ×4 (08:06→20:21)
[2020-10-29] MEDS: ASPIRIN 81 MG TAB.CHEW PO SCH (08:06)
[2020-10-29] MEDS: LOSARTAN 50 MG TABLET PO SCH (08:06)
[2020-10-29] MEDS: amLODIPine 5 MG TABLET PO SCH (08:06)
[2020-10-29] MEDS: INSULIN LISPRO 1 UNIT/0.01 ML UNIT SQ SCH ×5 (08:07→20:21)
[2020-10-29] MEDS: POLYETHYLENE GLYCOL 3350 17 GM PACKET PO PRN (08:07)
[2020-10-29] MEDS: ENOXAPARIN 40 MG/0.4 ML SYRINGE SQ SCH ×2 (08:07→20:22)
[2020-10-29] MEDS: PANTOPRAZOLE 40 MG PACKET PO SCH (10:52)
[2020-10-29] MEDS: METOPROLOL SUCCINATE 50 MG TAB.XL.24H PO SCH ×2 (12:12→20:21)
[2020-10-29] MEDS: PRAVASTATIN 40 MG TABLET PO SCH (20:22)
[2020-10-30] MEDS: 0.9 % SODIUM CHLORIDE 10 ML SYRINGE IV SCH ×3 (05:34→22:03)
[2020-10-30 07:16] LABS: ALT/SGPT 17 U/L (<40); AST/SGOT 19 U/L (<32); Albumin 2.4 gm/dL (3.2-5.2); Albumin/Globulin Ratio 0.6 (1.0-2.3); Alkaline Phosphatase 75 U/L (39-117); Bilirubin,Direct 0.2 mg/dL (<0.3); Bilirubin,Total 0.8 mg/dL (0.1-1.0); Blood Urea Nitrogen 58 mg/dL (8-23); Calcium 9.9 mg/dL (8.6-10.4); Carbon Dioxide 23 mmol/L (22-30); Chloride 104 mmol/L (96-108); Globulin 3.8 gm/dL (2.2-3.7); Glomerular Filtration Rate 37; Glucose 129 mg/dL (70-105); Lactate Dehydrogenase 237 U/L (135-225); Triglycerides 127 mg/dL (<150); Uric Acid 11.9 mg/dL (2.5-8.0)
--- NOTE | 2020-10-30 07:35 | Internal Med Progress Note ---
SUBJECTIVE Subjective Patient information: Note initiated : 10/30/20 at 7:31 am Service Date, if different from initiated Date: [] Patient: Sharla Michaels a 75 y/o F admitted on 10/19/20 for COVID POSITIVE, SOB. Chief Complaint: [] Interval history: Interval history: History of present illness: Ms. Michaels is a 75 year old F Patient presents to the ED with shortness of breath cough fever chills. Patient says she has been ill for about 5 days she came in yesterday and was found to be Covid positive she was offered monoclonal antibodies but refused. She is unvaccinated and says she did get vaccinated because she does not drive. Ms Michaels is yet another unvaccinated patient presenting with Covid pneumonia. She has a history of diabetes stroke vascular disease including CAD has obesity and smokes as well as has COPD. In the ED she was hypoxic in the upper 80s on room air put on several liters oxygen. 10/20 Patient feels a little bit better. Says her shortness of breath is better but still present. However nurse had to titrate to 2 to 4 L and she got up to the bedside this morning. Has productive cough. 10/21 Cough present. She says her breathing is improved today. Still requiring 4 to 5 L of oxygen. Sodium within normal limits. cr 1.4. 10/22: Been on 5L oxygen overnight. Afebrile overnight. c/o shortness of breath. c/o productive cough with white sputum. Denies wheezing. Denies chest pain. Denies fever or chill or sweating. Denies general body weakness. 10/23: Desaturated to mid 80s spo2 despite 10L oxygen. Afebrile overnight. Patient is c/o worsening SOB. c/o nonproductive cough. Denies wheezing. Denies fever or chills or sweating. 10/24: Afebrile overnight. On CPAP with FiO2 overnight. Patient is c/o SOB, improving. c/o wheezing. Denies cough or sputum production. Denies fever or chills or sweating. 10/25: Afebrile overnight. On CPAP with FiO2 55% overnight. Unable to obtain subjective due to clinical situations. 10/26: Afebrile overnight. On BiPAP 15/10 FiO2 55% overnight. Been prone overnight. c/o SOB. c/o nonproductive cough, no sputum production or respiratory wheezing. Denies chest pain. Denies fever, chills, or sweating. 10/27: Afebrile overnight. Been prone overnight. Been switched to high flow oxygen at around midnight, currently 10L/min. Denies SOB. Denies cough or sputum production. Denies wheezing. Denies chest pain. Denies fever, chills, or sweating. 10/28: Afebrile overnight. Been prone overnight. Been switched back to BiPAP 12/12, FiO2 55%. Denies SOB. Denies cough or sputum production. Denies wheezing. Denies chest pain. Denies fever, chills, or sweating. 10/29 Patient feels little bit better than yesterday. Occasional cough. Shortness of breath comes and goes. Currently on 8 to 10 L oxygen mask. 10/30 Patient says she slept fine and is feeling fine. Denies cough. Denies shortness of breath at rest. Requiring oxygen mask at 8 L. She seems to be a mouth breather and desats on nasal cannula while eating. Instructed nurse patient to be out of bed to chair several times a day along with proning. Review of Systems: denies headache/fever/chills/nausea/vomiting/chest or abdominal pain/diarrhea. Otherwise see above. Constitutional Vitals: Vital Signs Temp Pulse Resp BP Pulse Ox 97.3 F 61 22 156/67 96 10/30/20 04:01 10/29/20 23:18 10/30/20 06:01 10/30/20 06:01 10/30/20 06:01 Period Temp Pulse Resp BP Sys/Tai Pulse Ox Last 24 Hr 97.3 F-98.9 F 61-61 14-25 123-167/49-85 88-99 Intake and Output 10/29/20 10/30/20 10/30/20 21:59 05:59 13:59 Intake Total 100 Output Total 177 Balance -177 100 Weight 74.616 kg Intake & Output: Intake & Output 10/29/20 10/30/20 10/30/20 21:59 05:59 13:59 Intake Total 100 Output Total 177 Balance -177 100 Weight 74.616 kg Intake: Oral 100 Output: Void Amount 175 # of times incontinent of urine 2 Other: Meal Lunch Percent of Meal Consumed 50% Urine Appearance Clear Urine Color Dark Yellow Urine Odor Normal Exam: General: Alert, Awake, No acute Distress, obese Eyes/N/T: EOMI, Head/Neck: neck supple, CV: RRR, No murmurs, Pulm: Diminished b/l with mild rhonchi b/l Abd: soft, nontender, +BS x4 Ext: no clubbing/cyanosis, trace b/l LE edema Neuro: Alert, no focal deficits, moves all extremities, Skin: warm/dry OBJ DATA Labs CBC & Chem 7: 10/28/20 05:32 10/30/20 05:06 Labs: Abnormal Lab Results 10/30/20 10/28/20 10/28/20 05:06 05:32 05:32 Hgb 10.9 L MCV 77.9 L MCH 23.9 L MCHC 30.7 L RDW 14.7 H MPV 10.5 H Neut % (Auto) 91.9 H Lymph % (Auto) 4.8 L Lymph # (Auto) 0.47 L Absolute Neutrophils 9.04 H BUN 58 H 56 H Creatinine 1.4 H 1.5 H Glucose 129 H 189 H Uric Acid 11.9 H Lactate Dehydrogenase 237 H Albumin 2.4 L 2.6 L Globulin 3.8 H 4.0 H Albumin/Globulin Ratio 0.6 L 0.6 L 10/27/20 05:42 Hgb MCV MCH MCHC RDW MPV Neut % (Auto) Lymph % (Auto) Lymph # (Auto) Absolute Neutrophils BUN 49 H Creatinine 1.5 H Glucose 143 H Uric Acid Lactate Dehydrogenase Albumin 2.8 L Globulin 3.9 H Albumin/Globulin Ratio 0.7 L Meds: Medications Acetaminophen (Acetaminophen 325 Mg Tablet) 650 mg PO Q6HP PRN PRN Reason: PAIN/FEVER > 101 Last Admin: 10/27/20 08:30 Dose: 650 mg Documented by: Albuterol/Ipratropium (Ipratropium/Albuterol 3 Ml Ampul.Neb) 3 ml NEB Q8H NIURKA Last Admin: 10/29/20 23:18 Dose: 3 ml Documented by: Albuterol/Ipratropium (Ipratropium/Albuterol 3 Ml Ampul.Neb) 3 ml NEB Q4HP PRN PRN Reason: Shortness Of Breath Last Admin: 10/27/20 09:48 Dose: 3 ml Documented by: Amlodipine Besylate (Amlodipine 5 Mg Tablet) 5 mg PO QDAY [facility] Last Admin: 10/29/20 08:06 Dose: 5 mg Documented by: Aspirin (Aspirin 81 Mg Tab.Chew) 81 mg PO QDAY [facility] Last Admin: 10/29/20 08:06 Dose: 81 mg Documented by: Citalopram Hydrobromide (Citalopram 20 Mg Tablet) 40 mg PO DAILY [facility] Last Admin: 10/29/20 08:06 Dose: 40 mg Documented by: Dexamethasone (Dexamethasone 4 Mg Tablet) 6 mg PO DAILY [facility] Last Admin: 10/29/20 08:06 Dose: 6 mg Documented by: Dextrose (Dextrose 50% 50 Ml Vial) 0 ml IV UD PRN PRN Reason: Hypoglycemia Diagnostic Test (Pha) (Accu-Chek 1 Each Strip) 1 each FS ACHS [facility] Last Admin: 10/29/20 20:21 Dose: 1 each Documented by: Dipyridamole (Dipyridamole 25 Mg Tablet) 50 mg PO QID [facility] Last Admin: 10/29/20 20:21 Dose: 50 mg Documented by: Docusate Sodium (Docusate Sodium 100 Mg Capsule) 100 mg PO BID [facility] Last Admin: 10/29/20 20:21 Dose: 100 mg Documented by: Enoxaparin Sodium (Enoxaparin 40 Mg/0.4 Ml Syringe) 40 mg SQ BID [facility] Last Admin: 10/29/20 20:22 Dose: 40 mg Documented by: Gabapentin (Gabapentin 100 Mg Capsule) 100 mg PO QDAY [facility] Last Admin: 10/29/20 08:06 Dose: 100 mg Documented by: Glucose (Dextrose 31 Gm Oral.Susp) 15 gm PO PRN PRN PRN Reason: Hypoglycemia Guaifenesin (Guaifenesin/Dextromethorphan Oral Adelita) 10 ml PO Q4HP PRN PRN Reason: Cough Last Admin: 10/27/20 08:26 Dose: 10 ml Documented by: Magnesium Sulfate (Magnesium Sulfate) 2 gm in 50 mls @ 50 mls/hr IV UD PRN PRN Reason: Magnesium </= 1.6 Potassium Chloride 40 meq/ (Dextrose) 520 mls @ 130 mls/hr IV UD PRN PRN Reason: Potassium < 3 Insulin Glargine (Insulin Glargine, Human 1 Unit/0.01 Ml) 30 unit SQ [facility] Last Admin: 10/29/20 08:05 Dose: 30 units Documented by: Insulin Human Lispro (Insulin Lispro 1 Unit/0.01 Ml Unit) [address] [facility]; Protocol Last Admin: 10/29/20 20:21 Dose: 12 units Documented by: Lorazepam (Lorazepam 2 Mg/Ml Vial) 1 mg IV Q4HP PRN PRN Reason: ANXIETY/SEDATION Last Admin: 10/25/20 23:21 Dose: 1 mg Documented by: Losartan Potassium (Losartan 50 Mg Tablet) 100 mg PO QDAY [facility] Last Admin: 10/29/20 08:06 Dose: 100 mg Documented by: Metoprolol Succinate (Metoprolol Succinate 50 Mg Tab.Xl.24h) 50 mg PO BID [facility] Last Admin: 10/29/20 20:21 Dose: 50 mg Documented by: Ondansetron HCl (Ondansetron 4 Mg/2 Ml Vial) 4 mg IV Q4HP PRN PRN Reason: Nausea And Vomiting Oxybutynin Chloride (Oxybutynin Chloride 5 Mg Tablet) 5 mg PO QDAY [facility] Last Admin: 10/29/20 08:05 Dose: 5 mg Documented by: Pantoprazole Sodium (Pantoprazole 40 Mg Packet) 40 mg PO QAMAC [facility] Last Admin: 10/29/20 10:52 Dose: 40 mg Documented by: Polyethylene Glycol (Polyethylene Glycol 3350 17 Gm Packet) 17 gm PO DAILYP PRN PRN Reason: Constipation Last Admin: 10/29/20 08:07 Dose: 17 gm Documented by: Potassium Chloride (Potassium Chloride 20 Meq Tablet) 40 meq PO UD PRN PRN Reason: Potssium is 3-3.5 Potassium Chloride (Potassium Chloride 20 Meq Tablet) 40 meq PO UD PRN PRN Reason: Potassium < 3 Pravastatin Sodium (Pravastatin 40 Mg Tablet) 40 mg PO HS [facility] Last Admin: 10/29/20 20:22 Dose: 40 mg Documented by: Senna (Sennosides 1 Tablet) 2 tab PO DAILYP PRN PRN Reason: Constipation Last Admin: 10/28/20 10:57 Dose: 2 tab Documented by: Sodium Chloride (0.9 % Sodium Chloride 10 Ml Syringe) 10 ml IV Q8 [facility] Last Admin: 10/30/20 05:34 Dose: 10 ml Documented by: Trazodone HCl (Trazodone Hcl 50 Mg Tablet) 50 mg PO QHS PRN PRN Reason: Sleep Last Admin: 10/27/20 21:34 Dose: 50 mg Documented by: A/P Narrative A/P Narrative: A: *Covid pneumonia w/ARDS: -afebrile *Acute hypoxic respiratory failure: -down to Oxymask @ 8L, no bipap since early on 10/28 *COPD(not 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 *h/o CAD w/CABG & PVD w/stents: *h/o CVA: *CKD IIIb: stable *Anemia, chronic: *HTN/HLD: *Depression: *GERD: *Obesity: P: -Remdesivir finished / Dexamethasone finished -O2 supp, wean as able with goal 89-94% given copd -Proning and mobilization oob to chair, IS/Acapella, prn nebs -d/c'd lasix -cont losartan/BB/norvasc -cont on ASA/Dipyradamole -basal and SSI -Smoking cessation counseling -PT/OT -ppx: Lovenox twice daily /home PPI Code status: full Prognosis: guarded Time Spent With Patient Time: Total time spent is greater than 50% in coordination of care (as documented) at patient's floor/unit and/or counseling patient:
[2020-10-30] MEDS: PANTOPRAZOLE 40 MG PACKET PO SCH (08:01)
[2020-10-30] MEDS: IPRATROPIUM/ALBUTEROL 3 ML AMPUL.NEB NEB SCH (08:05)
[2020-10-30] MEDS: INSULIN LISPRO 1 UNIT/0.01 ML UNIT SQ SCH ×4 (08:38→21:57)
[2020-10-30] MEDS: LOSARTAN 50 MG TABLET PO SCH (08:48)
[2020-10-30] MEDS: DOCUSATE SODIUM 100 MG CAPSULE PO SCH ×2 (08:48→21:57)
[2020-10-30] MEDS: ENOXAPARIN 40 MG/0.4 ML SYRINGE SQ SCH ×2 (08:48→21:58)
[2020-10-30] MEDS: ASPIRIN 81 MG TAB.CHEW PO SCH (08:48)
[2020-10-30] MEDS: METOPROLOL SUCCINATE 50 MG TAB.XL.24H PO SCH ×2 (08:49→22:02)
[2020-10-30] MEDS: CITALOPRAM 20 MG TABLET PO SCH (08:49)
[2020-10-30] MEDS: amLODIPine 5 MG TABLET PO SCH (08:49)
[2020-10-30] MEDS: POLYETHYLENE GLYCOL 3350 17 GM PACKET PO PRN (08:49)
[2020-10-30] MEDS: OXYBUTYNIN CHLORIDE 5 MG TABLET PO SCH (08:49)
[2020-10-30] MEDS: GABAPENTIN 100 MG CAPSULE PO SCH (08:49)
[2020-10-30] MEDS: DIPYRIDAMOLE 25 MG TABLET PO SCH ×4 (08:53→21:57)
[2020-10-30] MEDS: INSULIN GLARGINE, HUMAN 1 UNIT/0.01 ML SQ SCH (08:53)
[2020-10-30] MEDS: PRAVASTATIN 40 MG TABLET PO SCH (22:00)
[2020-10-30] MEDS: SENNOSIDES 1 TABLET PO PRN (22:02)
[2020-10-30] MEDS: traZODone HCL 50 MG TABLET PO PRN (22:02)
[2020-10-31] MEDS: 0.9 % SODIUM CHLORIDE 10 ML SYRINGE IV SCH ×3 (04:48→21:06)
[2020-10-31] MEDS: PANTOPRAZOLE 40 MG PACKET PO SCH (07:51)
[2020-10-31 08:04] LABS: ALT/SGPT 19 U/L (<40); AST/SGOT 18 U/L (<32); Albumin 2.2 gm/dL (3.2-5.2); Albumin/Globulin Ratio 0.6 (1.0-2.3); Alkaline Phosphatase 72 U/L (39-117); Bilirubin,Direct 0.3 mg/dL (<0.3); Blood Urea Nitrogen 46 mg/dL (8-23); Calcium 9.5 mg/dL (8.6-10.4); Carbon Dioxide 24 mmol/L (22-30); Chloride 105 mmol/L (96-108); Globulin 3.6 gm/dL (2.2-3.7); Glomerular Filtration Rate 37; Glucose 81 mg/dL (70-105); Lactate Dehydrogenase 212 U/L (135-225); Phosphorous 2.7 mg/dL (2.5-4.5); Triglycerides 113 mg/dL (<150); Uric Acid 10.1 mg/dL (2.5-8.0)
--- NOTE | 2020-10-31 08:05 | Internal Med Progress Note ---
SUBJECTIVE Subjective Patient information: Note initiated : 10/31/20 at 8:04 am Service Date, if different from initiated Date: [] Patient: Sharla Michaels a 75 y/o F admitted on 10/19/20 for COVID POSITIVE, SOB. Chief Complaint: [] Interval history: Interval history: History of present illness: Ms. Michaels is a 75 year old F Patient presents to the ED with shortness of breath cough fever chills. Patient says she has been ill for about 5 days she came in yesterday and was found to be Covid positive she was offered monoclonal antibodies but refused. She is unvaccinated and says she did get vaccinated because she does not drive. Ms Michaels is yet another unvaccinated patient presenting with Covid pneumonia. She has a history of diabetes stroke vascular disease including CAD has obesity and smokes as well as has COPD. In the ED she was hypoxic in the upper 80s on room air put on several liters oxygen. 10/20 Patient feels a little bit better. Says her shortness of breath is better but still present. However nurse had to titrate to 2 to 4 L and she got up to the bedside this morning. Has productive cough. 10/21 Cough present. She says her breathing is improved today. Still requiring 4 to 5 L of oxygen. Sodium within normal limits. cr 1.4. 10/22: Been on 5L oxygen overnight. Afebrile overnight. c/o shortness of breath. c/o productive cough with white sputum. Denies wheezing. Denies chest pain. Denies fever or chill or sweating. Denies general body weakness. 10/23: Desaturated to mid 80s spo2 despite 10L oxygen. Afebrile overnight. Patient is c/o worsening SOB. c/o nonproductive cough. Denies wheezing. Denies fever or chills or sweating. 10/24: Afebrile overnight. On CPAP with FiO2 overnight. Patient is c/o SOB, improving. c/o wheezing. Denies cough or sputum production. Denies fever or chills or sweating. 10/25: Afebrile overnight. On CPAP with FiO2 55% overnight. Unable to obtain subjective due to clinical situations. 10/26: Afebrile overnight. On BiPAP 15/10 FiO2 55% overnight. Been prone overnight. c/o SOB. c/o nonproductive cough, no sputum production or respiratory wheezing. Denies chest pain. Denies fever, chills, or sweating. 10/27: Afebrile overnight. Been prone overnight. Been switched to high flow oxygen at around midnight, currently 10L/min. Denies SOB. Denies cough or sputum production. Denies wheezing. Denies chest pain. Denies fever, chills, or sweating. 10/28: Afebrile overnight. Been prone overnight. Been switched back to BiPAP 12/12, FiO2 55%. Denies SOB. Denies cough or sputum production. Denies wheezing. Denies chest pain. Denies fever, chills, or sweating. 10/29 Patient feels little bit better than yesterday. Occasional cough. Shortness of breath comes and goes. Currently on 8 to 10 L oxygen mask. 10/30 Patient says she slept fine and is feeling fine. Denies cough. Denies shortness of breath at rest. Requiring oxygen mask at 8 L. She seems to be a mouth breather and desats on nasal cannula while eating. Instructed nurse patient to be out of bed to chair several times a day along with proning. 10/31 She feels she is gradually improving. Her oxygen needs are slowly improving. She is still very weak. CRP has improved on follow-up. Occasional cough. Review of Systems: denies headache/fever/chills/nausea/vomiting/chest or abdominal pain/diarrhea. Otherwise see above. Constitutional Vitals: Vital Signs Temp Pulse Resp BP Pulse Ox 98.4 F 59 L 29 H 165/67 92 10/31/20 04:01 10/31/20 00:05 10/31/20 08:00 10/31/20 07:43 10/31/20 08:00 Period Temp Pulse Resp BP Sys/Tai Pulse Ox Last 24 Hr 97.0 F-99.0 F 59-68 19-29 120-165/43-69 84-97 Intake and Output 10/30/20 10/31/20 10/31/20 21:59 05:59 13:59 Intake Total 240 300 Output Total 326 1 Balance -86 299 Weight 73.799 kg Intake & Output: Intake & Output 10/30/20 10/31/20 10/31/20 21:59 05:59 13:59 Intake Total 240 300 Output Total 326 1 Balance -86 299 Weight 73.799 kg Intake: Nourishment/Supplement quantity 120 (ml) Oral 120 300 Output: Void Amount 325 # of times incontinent of urine 1 1 Other: Nourishment/Supplement name Steffi Urine Appearance Clear Urine Color Dark Yellow Stool Size Small Stool Color Brown Stool Consistency Loose # of times incontinent of 1 Bowels Exam: General: Alert, Awake, No acute Distress, obese Eyes/N/T: EOMI, Head/Neck: neck supple, CV: RRR, No murmurs, Pulm: better aeration, mild fine rales b/l Abd: soft, nontender, +BS x4 Ext: no clubbing/cyanosis, trace b/l LE edema Neuro: Alert, no focal deficits, moves all extremities, Skin: warm/dry OBJ DATA Labs CBC & Chem 7: 10/28/20 05:32 10/31/20 06:06 Labs: Abnormal Lab Results 10/30/20 05:06 BUN 58 H Creatinine 1.4 H Glucose 129 H Uric Acid 11.9 H Lactate Dehydrogenase 237 H Albumin 2.4 L Globulin 3.8 H Albumin/Globulin Ratio 0.6 L Meds: Medications Acetaminophen (Acetaminophen 325 Mg Tablet) 650 mg PO Q6HP PRN PRN Reason: PAIN/FEVER > 101 Last Admin: 10/27/20 08:30 Dose: 650 mg Documented by: Albuterol/Ipratropium (Ipratropium/Albuterol 3 Ml Ampul.Neb) 3 ml NEB Q4HP PRN PRN Reason: Shortness Of Breath Last Admin: 10/27/20 09:48 Dose: 3 ml Documented by: Amlodipine Besylate (Amlodipine 5 Mg Tablet) 5 mg PO QDAY [facility] Last Admin: 10/30/20 08:49 Dose: 5 mg Documented by: Aspirin (Aspirin 81 Mg Tab.Chew) 81 mg PO QDAY [facility] Last Admin: 10/30/20 08:48 Dose: 81 mg Documented by: Citalopram Hydrobromide (Citalopram 20 Mg Tablet) 40 mg PO DAILY [facility] Last Admin: 10/30/20 08:49 Dose: 40 mg Documented by: Dextrose (Dextrose 50% 50 Ml Vial) 0 ml IV UD PRN PRN Reason: Hypoglycemia Diagnostic Test (Pha) (Accu-Chek 1 Each Strip) 1 each FS ACHS [facility] Last Admin: 10/30/20 21:56 Dose: 1 each Documented by: Dipyridamole (Dipyridamole 25 Mg Tablet) 50 mg PO QID [facility] Last Admin: 10/30/20 21:57 Dose: 50 mg Documented by: Docusate Sodium (Docusate Sodium 100 Mg Capsule) 100 mg PO BID [facility] Last Admin: 10/30/20 21:57 Dose: 100 mg Documented by: Enoxaparin Sodium (Enoxaparin 40 Mg/0.4 Ml Syringe) 40 mg SQ BID [facility] Last Admin: 10/30/20 21:58 Dose: 40 mg Documented by: Gabapentin (Gabapentin 100 Mg Capsule) 100 mg PO QDAY [facility] Last Admin: 10/30/20 08:49 Dose: 100 mg Documented by: Glucose (Dextrose 31 Gm Oral.Susp) 15 gm PO PRN PRN PRN Reason: Hypoglycemia Guaifenesin (Guaifenesin/Dextromethorphan Oral Adelita) 10 ml PO Q4HP PRN PRN Reason: Cough Last Admin: 10/27/20 08:26 Dose: 10 ml Documented by: Magnesium Sulfate (Magnesium Sulfate) 2 gm in 50 mls @ 50 mls/hr IV UD PRN PRN Reason: Magnesium </= 1.6 Potassium Chloride 40 meq/ (Dextrose) 520 mls @ 130 mls/hr IV UD PRN PRN Reason: Potassium < 3 Insulin Glargine (Insulin Glargine, Human 1 Unit/0.01 Ml) [facility] Last Admin: 10/30/20 08:53 Dose: 30 units Documented by: Insulin Human Lispro (Insulin Lispro 1 Unit/0.01 Ml Unit) 0 unit SQ [facility]; Protocol Last Admin: 10/30/20 21:57 Dose: 10 units Documented by: Lorazepam (Lorazepam 2 Mg/Ml Vial) 1 mg IV Q4HP PRN PRN Reason: ANXIETY/SEDATION Last Admin: 10/25/20 23:21 Dose: 1 mg Documented by: Losartan Potassium (Losartan 50 Mg Tablet) 100 mg PO QDAY [facility] Last Admin: 10/30/20 08:48 Dose: 100 mg Documented by: Metoprolol Succinate (Metoprolol Succinate 50 Mg Tab.Xl.24h) 50 mg PO BID [facility] Last Admin: 10/30/20 22:02 Dose: 50 mg Documented by: Ondansetron HCl (Ondansetron 4 Mg/2 Ml Vial) 4 mg IV Q4HP PRN PRN Reason: Nausea And Vomiting Oxybutynin Chloride (Oxybutynin Chloride 5 Mg Tablet) 5 mg PO QDAY [facility] Last Admin: 10/30/20 08:49 Dose: 5 mg Documented by: Pantoprazole Sodium (Pantoprazole 40 Mg Packet) 40 mg PO QAMAC [facility] Last Admin: 10/31/20 07:51 Dose: 40 mg Documented by: Polyethylene Glycol (Polyethylene Glycol 3350 17 Gm Packet) 17 gm PO DAILYP PRN PRN Reason: Constipation Last Admin: 10/30/20 08:49 Dose: 17 gm Documented by: Potassium Chloride (Potassium Chloride 20 Meq Tablet) 40 meq PO UD PRN PRN Reason: Potssium is 3-3.5 Potassium Chloride (Potassium Chloride 20 Meq Tablet) 40 meq PO UD PRN PRN Reason: Potassium < 3 Pravastatin Sodium (Pravastatin 40 Mg Tablet) 40 mg PO HS [facility] Last Admin: 10/30/20 22:00 Dose: 40 mg Documented by: Senna (Sennosides 1 Tablet) 2 tab PO DAILYP PRN PRN Reason: Constipation Last Admin: 10/30/20 22:02 Dose: 2 tab Documented by: Sodium Chloride (0.9 % Sodium Chloride 10 Ml Syringe) 10 ml IV Q8 [facility] Last Admin: 10/31/20 04:48 Dose: 10 ml Documented by: Trazodone HCl (Trazodone Hcl 50 Mg Tablet) 50 mg PO QHS PRN PRN Reason: Sleep Last Admin: 10/30/20 22:02 Dose: 50 mg Documented by: A/P Narrative A/P Narrative: A: *Covid pneumonia w/ARDS: improving -afebrile *Acute hypoxic respiratory failure: -down to Oxymask @ 4L, no bipap since early on 10/28 *COPD(not 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
[2020-10-31] MEDS: INSULIN LISPRO 1 UNIT/0.01 ML UNIT SQ SCH ×4 (08:24→21:06)
[2020-10-31] MEDS: INSULIN GLARGINE, HUMAN 1 UNIT/0.01 ML SQ SCH (08:54)
[2020-10-31] MEDS: ENOXAPARIN 40 MG/0.4 ML SYRINGE SQ SCH ×2 (08:54→21:07)
[2020-10-31] MEDS: ASPIRIN 81 MG TAB.CHEW PO SCH (08:55)
[2020-10-31] MEDS: DIPYRIDAMOLE 25 MG TABLET PO SCH ×4 (08:55→21:08)
[2020-10-31] MEDS: METOPROLOL SUCCINATE 50 MG TAB.XL.24H PO SCH ×2 (08:55→21:09)
[2020-10-31] MEDS: CITALOPRAM 20 MG TABLET PO SCH (08:56)
[2020-10-31] MEDS: GABAPENTIN 100 MG CAPSULE PO SCH (08:56)
[2020-10-31] MEDS: OXYBUTYNIN CHLORIDE 5 MG TABLET PO SCH (08:56)
[2020-10-31] MEDS: DOCUSATE SODIUM 100 MG CAPSULE PO SCH ×2 (09:38→21:08)
[2020-10-31] MEDS: LOSARTAN 50 MG TABLET PO SCH (11:28)
[2020-10-31] MEDS: amLODIPine 5 MG TABLET PO SCH (12:20)
[2020-10-31 20:50] LABS: Appearance,Urine HAZY (Clear); Bilirubin,Urine Negative (Negative); Color,Urine YELLOW; Culture Indicated,Urine Yes; Glucose,Urine (UA) Negative (Negative); Ketones,Urine Negative (Negative); Leukocyte Esterase,Urine Negative /ug (Negative); Nitrate,Urine Negative (Negative); Protein,Urine Negative (Negative); Urine Blood >=1.0 mg/dL (Negative); Urine Budding Yeast MANY /hpf; Urine RBC > 182 /hpf (0-1); Urine Squamous Epithelial Cell 0 /hpf (0-4); Urine WBC 5 /hpf (0-4); Urobilinogen,Urine Negative
[2020-10-31] MEDS: PRAVASTATIN 40 MG TABLET PO SCH (21:07)
[2020-10-31] MEDS: traZODone HCL 50 MG TABLET PO PRN (21:09)
[2020-11-01] MEDS: 0.9 % SODIUM CHLORIDE 10 ML SYRINGE IV SCH ×3 (06:05→21:45)
--- NOTE | 2020-11-01 08:16 | Internal Med Progress Note ---
SUBJECTIVE Subjective Patient information: Note initiated : 11/01/20 at 8:14 am Service Date, if different from initiated Date: [] Patient: Sharla Michaels a 75 y/o F admitted on 10/19/20 for COVID POSITIVE, SOB. Chief Complaint: [] Interval history: Interval history: History of present illness: Ms. Michaels is a 75 year old F Patient presents to the ED with shortness of breath cough fever chills. Patient says she has been ill for about 5 days she came in yesterday and was found to be Covid positive she was offered monoclonal antibodies but refused. She is unvaccinated and says she did get vaccinated because she does not drive. Ms Michaels is yet another unvaccinated patient presenting with Covid pneumonia. She has a history of diabetes stroke vascular disease including CAD has obesity and smokes as well as has COPD. In the ED she was hypoxic in the upper 80s on room air put on several liters oxygen. 10/20 Patient feels a little bit better. Says her shortness of breath is better but still present. However nurse had to titrate to 2 to 4 L and she got up to the bedside this morning. Has productive cough. 10/21 Cough present. She says her breathing is improved today. Still requiring 4 to 5 L of oxygen. Sodium within normal limits. cr 1.4. 10/22: Been on 5L oxygen overnight. Afebrile overnight. c/o shortness of breath. c/o productive cough with white sputum. Denies wheezing. Denies chest pain. Denies fever or chill or sweating. Denies general body weakness. 10/23: Desaturated to mid 80s spo2 despite 10L oxygen. Afebrile overnight. Patient is c/o worsening SOB. c/o nonproductive cough. Denies wheezing. Denies fever or chills or sweating. 10/24: Afebrile overnight. On CPAP with FiO2 overnight. Patient is c/o SOB, improving. c/o wheezing. Denies cough or sputum production. Denies fever or chills or sweating. 10/25: Afebrile overnight. On CPAP with FiO2 55% overnight. Unable to obtain subjective due to clinical situations. 10/26: Afebrile overnight. On BiPAP 15/10 FiO2 55% overnight. Been prone overnight. c/o SOB. c/o nonproductive cough, no sputum production or respiratory wheezing. Denies chest pain. Denies fever, chills, or sweating. 10/27: Afebrile overnight. Been prone overnight. Been switched to high flow oxygen at around midnight, currently 10L/min. Denies SOB. Denies cough or sputum production. Denies wheezing. Denies chest pain. Denies fever, chills, or sweating. 10/28: Afebrile overnight. Been prone overnight. Been switched back to BiPAP 12/12, FiO2 55%. Denies SOB. Denies cough or sputum production. Denies wheezing. Denies chest pain. Denies fever, chills, or sweating. 10/29 Patient feels little bit better than yesterday. Occasional cough. Shortness of breath comes and goes. Currently on 8 to 10 L oxygen mask. 10/30 Patient says she slept fine and is feeling fine. Denies cough. Denies shortness of breath at rest. Requiring oxygen mask at 8 L. She seems to be a mouth breather and desats on nasal cannula while eating. Instructed nurse patient to be out of bed to chair several times a day along with proning. 10/31 She feels she is gradually improving. Her oxygen needs are slowly improving. She is still very weak. CRP has improved on follow-up. Occasional cough. 11/01 Feeling a little bit better today again. Down to 2 L at rest. Review of Systems: denies headache/fever/chills/nausea/vomiting/chest or abdominal pain/diarrhea. Otherwise see above. Constitutional Vitals: Vital Signs Temp Pulse Resp BP Pulse Ox 97.0 F 61 21 119/45 98 11/01/20 04:01 11/01/20 05:56 11/01/20 07:58 11/01/20 06:01 11/01/20 07:58 Period Temp Pulse Resp BP Sys/Tai Pulse Ox Last 24 Hr 97.0 F-99.2 F 57-61 16-28 109-145/45-63 90-98 Intake and Output 10/31/20 11/01/20 11/01/20 21:59 05:59 13:59 Intake Total 830 100 Output Total 350 1 Balance 480 99 Weight 75.795 kg Intake & Output: Intake & Output 10/31/20 11/01/20 11/01/20 21:59 05:59 13:59 Intake Total 830 100 Output Total 350 1 Balance 480 99 Weight 75.795 kg Intake: Nourishment/Supplement quantity 200 (ml) Oral 630 100 Output: Urine Catheter Amount 350 Uretheral ([place]) 350 # of times incontinent of urine 1 Other: Meal Dinner Percent of Meal Consumed 50% Feeding Ability Total Assistance Nourishment/Supplement name Glucerna Urine Appearance Uretheral ([place]) Cloudy Urine Color Uretheral ([place]) Dark Yellow Urine Odor Uretheral ([place]) Strong Stool Size Large Stool Color Brown Stool Consistency Loose # of times incontinent of 1 Bowels Exam: General: Alert, Awake, No acute Distress, obese Eyes/N/T: EOMI, Head/Neck: neck supple, CV: RRR, No murmurs, Pulm: better aeration, mild fine rales b/l and wheezing b/l Abd: soft, nontender, +BS x4 Ext: no clubbing/cyanosis, trace b/l LE edema Neuro: Alert, no focal deficits, moves all extremities, Skin: warm/dry OBJ DATA Labs CBC & Chem 7: 10/28/20 05:32 10/31/20 06:06 Labs: Abnormal Lab Results 10/31/20 10/31/20 10/30/20 19:21 06:06 05:06 BUN 46 H 58 H Creatinine 1.4 H 1.4 H Glucose 129 H Uric Acid 10.1 H 11.9 H Direct Bilirubin 0.3 H Lactate Dehydrogenase 237 H C-Reactive Protein 5.30 H Total Protein 5.8 L Albumin 2.2 L 2.4 L Globulin 3.8 H Albumin/Globulin Ratio 0.6 L 0.6 L Urine Appearance Hazy A Urine Occult Blood >=1.0 A Urine RBC > 182 H Urine WBC 5 H Urine Yeast (Budding) Many A Meds: Medications Acetaminophen (Acetaminophen 325 Mg Tablet) 650 mg PO Q6HP PRN PRN Reason: PAIN/FEVER > 101 Last Admin: 10/27/20 08:30 Dose: 650 mg Documented by: Albuterol/Ipratropium (Ipratropium/Albuterol 3 Ml Ampul.Neb) 3 ml NEB Q4HP PRN PRN Reason: Shortness Of Breath Last Admin: 10/27/20 09:48 Dose: 3 ml Documented by: Amlodipine Besylate (Amlodipine 5 Mg Tablet) 5 mg PO QDAY [facility] Last Admin: 10/31/20 12:20 Dose: Not Given Documented by: Aspirin (Aspirin 81 Mg Tab.Chew) 81 mg PO QDAY [facility] Last Admin: 10/31/20 08:55 Dose: 81 mg Documented by: Citalopram Hydrobromide (Citalopram 20 Mg Tablet) 40 mg PO DAILY [facility] Last Admin: 10/31/20 08:56 Dose: 40 mg Documented by: Dextrose (Dextrose 50% 50 Ml Vial) 0 ml IV UD PRN PRN Reason: Hypoglycemia Diagnostic Test (Pha) (Accu-Chek 1 Each Strip) 1 each FS ACHS [facility] Last Admin: 10/31/20 21:06 Dose: 1 each Documented by: Dipyridamole (Dipyridamole 25 Mg Tablet) 50 mg PO QID [facility] Last Admin: 10/31/20 21:08 Dose: 50 mg Documented by: Docusate Sodium (Docusate Sodium 100 Mg Capsule) 100 mg PO BID [facility] Last Admin: 10/31/20 21:08 Dose: Not Given Documented by: Enoxaparin Sodium (Enoxaparin 40 Mg/0.4 Ml Syringe) 40 mg SQ BID [facility] Last Admin: 10/31/20 21:07 Dose: 40 mg Documented by: Gabapentin (Gabapentin 100 Mg Capsule) 100 mg PO QDAY [facility] Last Admin: 10/31/20 08:56 Dose: 100 mg Documented by: Glucose (Dextrose 31 Gm Oral.Susp) 15 gm PO PRN PRN PRN Reason: Hypoglycemia Guaifenesin (Guaifenesin/Dextromethorphan Oral Adelita) 10 ml PO Q4HP PRN PRN Reason: Cough Last Admin: 10/27/20 08:26 Dose: 10 ml Documented by: Magnesium Sulfate (Magnesium Sulfate) 2 gm in 50 mls @ 50 mls/hr IV UD PRN PRN Reason: Magnesium </= 1.6 Potassium Chloride 40 meq/ (Dextrose) 520 mls @ 130 mls/hr IV UD PRN PRN Reason: Potassium < 3 Insulin Glargine (Insulin Glargine, Human 1 Unit/0.01 Ml) 30 unit SQ QAM [facility] Last Admin: 10/31/20 08:54 Dose: 30 units Documented by: Insulin Human Lispro (Insulin Lispro 1 Unit/0.01 Ml Unit) 0 unit SQ [facility]; Protocol Last Admin: 10/31/20 21:06 Dose: 6 units Documented by: Lorazepam (Lorazepam 2 Mg/Ml Vial) 1 mg IV Q4HP PRN PRN Reason: ANXIETY/SEDATION Last Admin: 10/25/20 23:21 Dose: 1 mg Documented by: Losartan Potassium (Losartan 50 Mg Tablet) 100 mg PO QDAY [facility] Last Admin: 10/31/20 11:28 Dose: 100 mg Documented by: Metoprolol Succinate (Metoprolol Succinate 50 Mg Tab.Xl.24h) 50 mg PO BID [facility] Last Admin: 10/31/20 21:09 Dose: 50 mg Documented by: Ondansetron HCl (Ondansetron 4 Mg/2 Ml Vial) 4 mg IV Q4HP PRN PRN Reason: Nausea And Vomiting Oxybutynin Chloride (Oxybutynin Chloride 5 Mg Tablet) 5 mg PO QDAY [facility] Last Admin: 10/31/20 08:56 Dose: 5 mg Documented by: Pantoprazole Sodium (Pantoprazole 40 Mg Packet) 40 mg PO QAMAC [facility] Last Admin: 10/31/20 07:51 Dose: 40 mg Documented by: Polyethylene Glycol (Polyethylene Glycol 3350 17 Gm Packet) 17 gm PO DAILYP PRN PRN Reason: Constipation Last Admin: 10/30/20 08:49 Dose: 17 gm Documented by: Potassium Chloride (Potassium Chloride 20 Meq Tablet) 40 meq PO UD PRN PRN Reason: Potssium is 3-3.5 Potassium Chloride (Potassium Chloride 20 Meq Tablet) 40 meq PO UD PRN PRN Reason: Potassium < 3 Pravastatin Sodium (Pravastatin 40 Mg Tablet) 40 mg PO HS [facility] Last Admin: 10/31/20 21:07 Dose: 40 mg Documented by: Senna (Sennosides 1 Tablet) 2 tab PO DAILYP PRN PRN Reason: Constipation Last Admin: 10/30/20 22:02 Dose: 2 tab Documented by: Sodium Chloride (0.9 % Sodium Chloride 10 Ml Syringe) 10 ml IV Q8 [facility] Last Admin: 11/01/20 06:05 Dose: 10 ml Documented by: Trazodone HCl (Trazodone Hcl 50 Mg Tablet) 50 mg PO QHS PRN PRN Reason: Sleep Last Admin: 10/31/20 21:09 Dose: 50 mg Documented by: A/P Narrative A/P Narrative: A: *Covid pneumonia w/ARDS: improving -afebrile *Acute hypoxic respiratory failure: -down to Oxymask @ 2L, no bipap since early on 10/28 *COPD(not 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 *h/o CAD w/CABG & PVD w/stents: *h/o CVA: *CKD IIIb: stable *Anemia, chronic: *HTN/HLD: *Depression: *GERD: *Obesity: P: -Remdesivir & Dexamethasone finished -O2 supp, wean as able with goal 89-94% given copd -Proning and mobilization oob to chair, IS/Acapella, prn nebs -cont losartan/BB/norvasc -cont on ASA/Dipyradamole -basal and SSI -start advair for copd -Smoking cessation counseling -PT/OT -ppx: Lovenox twice daily /home PPI 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
[2020-11-01] MEDS: DIPYRIDAMOLE 25 MG TABLET PO SCH ×4 (09:00→21:46)
[2020-11-01] MEDS: INSULIN LISPRO 1 UNIT/0.01 ML UNIT SQ SCH ×4 (09:15→21:44)
[2020-11-01] MEDS: DOCUSATE SODIUM 100 MG CAPSULE PO SCH ×2 (09:16→21:46)
[2020-11-01] MEDS: METOPROLOL SUCCINATE 50 MG TAB.XL.24H PO SCH ×2 (09:16→21:47)
[2020-11-01] MEDS: INSULIN GLARGINE, HUMAN 1 UNIT/0.01 ML SQ SCH (09:30)
[2020-11-01] MEDS: ENOXAPARIN 40 MG/0.4 ML SYRINGE SQ SCH ×2 (09:30→21:46)
[2020-11-01] MEDS: ACETAMINOPHEN 325 MG TABLET PO PRN (09:30)
[2020-11-01] MEDS: amLODIPine 5 MG TABLET PO SCH (09:31)
[2020-11-01] MEDS: PANTOPRAZOLE 40 MG PACKET PO SCH (09:31)
[2020-11-01] MEDS: LOSARTAN 50 MG TABLET PO SCH (09:31)
[2020-11-01] MEDS: OXYBUTYNIN CHLORIDE 5 MG TABLET PO SCH (09:31)
[2020-11-01] MEDS: ASPIRIN 81 MG TAB.CHEW PO SCH (09:31)
[2020-11-01] MEDS: CITALOPRAM 20 MG TABLET PO SCH (09:31)
[2020-11-01] MEDS: GABAPENTIN 100 MG CAPSULE PO SCH (09:31)
[2020-11-01] MEDS: FLUTICASONE/SALMETEROL 250/50 INHALER #14 INH SCH ×2 (11:00→21:44)
--- NOTE | 2020-11-01 11:19 | Discharge Summary ---
Discharge Provider Provider Patient information: Note initiated : 11/01/20 at 11:17 am Service Date, if different from initiated Date: [] Patient: Sharla Michaels 75 y/o F admitted on 10/19/20 for COVID POSITIVE, SOB. Chief Complaint: [] Date of admission: 10/19/20 22:55 Primary care physician: Aleyda Mendez Consults: 10/19/20 Consult to Physician [CONS] Stat Comment: Consulting Provider: Jose Ramos Reason For Exam: Physician to Consult Consult to Physician [CONS] Stat Comment: Consulting Provider: Jose Ramos Reason For Exam: Physician to Consult Consult to Physician [CONS] Stat Comment: Consulting Provider: Jose Ramos Reason For Exam: Physician to Consult Discharge Meds Discharge Medications Home Medications gabapentin 100 mg capsule 100 mg PO QDAY 02/08/18 [History Confirmed 10/20/20 Last Taken 10/18/20] pantoprazole 40 mg granules delayed-release for susp in packet 40 mg PO QDAY 02/08/18 [History Confirmed 10/20/20 Last Taken 10/18/20] amlodipine 5 mg tablet 5 mg PO QDAY 05/29/20 [History Confirmed 10/19/20 Last Taken 10/18/20 09:00] aspirin 81 mg chewable tablet 81 mg PO QDAY 05/29/20 [History Confirmed 10/19/20 Last Taken 10/18/20 09:00] citalopram 40 mg tablet 40 mg PO QDAY tab 05/29/20 [History Confirmed 10/19/20 Last Taken 10/18/20] dipyridamole 25 mg tablet 50 mg PO QID tab 05/29/20 [History Confirmed 10/19/20 Last Taken 10/18/20] insulin glargine 100 unit/mL (3 mL) subcutaneous pen 30 unit SUBCUT QAM ml 05/29/20 [History Confirmed 10/20/20 Last Taken 10/19/20 09:00] losartan 50 mg tablet 100 mg PO QDAY tab 05/29/20 [History Confirmed 10/20/20 Last Taken 10/18/20] oxybutynin chloride 5 mg tablet 5 mg PO QDAY 05/29/20 [History Confirmed 10/20/20 Last Taken 10/18/20] pravastatin 40 mg tablet 40 mg PO QDAY 05/29/20 [History Confirmed 10/20/20 Last Taken 10/18/20] trazodone 50 mg tablet 50 mg PO QHS PRN 05/29/20 [History Confirmed 10/20/20 Last Taken 10/17/20] ergocalciferol (vitamin D2) 1,250 mcg PO WEEKLY 10/18/20 [History Confirmed 10/20/20 Last Taken 10/18/20] fluticasone propion-salmeterol [Advair HFA] 2 puff INHALATION Q12H #8 g 11/01/20 [Rx Last Taken Unknown] metoprolol succinate [Toprol XL] 25 mg PO QDAY #30 tab 11/02/20 [Rx Last Taken Unknown] COURSE Hospital Course Hospital course: Interval history: Interval history: History of present illness: Ms. Michaels is a 75 year old F Patient presents to the ED with shortness of breath cough fever chills. Patient says she has been ill for about 5 days she came in yesterday and was found to be Covid positive she was offered monoclonal antibodies but refused. She is unvaccinated and says she did get vaccinated because she does not drive. Ms Michaels is yet another unvaccinated patient presenting with Covid pneumonia. She has a history of diabetes stroke vascular disease including CAD has obesity and smokes as well as has COPD. In the ED she was hypoxic in the upper 80s on room air put on several liters oxygen. 10/20 Patient feels a little bit better. Says her shortness of breath is better but still present. However nurse had to titrate to 2 to 4 L and she got up to the bedside this morning. Has productive cough. 10/21 Cough present. She says her breathing is improved today. Still requiring 4 to 5 L of oxygen. Sodium within normal limits. cr 1.4. 10/22: Been on 5L oxygen overnight. Afebrile overnight. c/o shortness of breath. c/o productive cough with white sputum. Denies wheezing. Denies chest pain. Denies fever or chill or sweating. Denies general body weakness. 10/23: Desaturated to mid 80s spo2 despite 10L oxygen. Afebrile overnight. Patient is c/o worsening SOB. c/o nonproductive cough. Denies wheezing. Denies fever or chills or sweating. 10/24: Afebrile overnight. On CPAP with FiO2 overnight. Patient is c/o SOB, improving. c/o wheezing. Denies cough or sputum production. Denies fever or chills or sweating. 10/25: Afebrile overnight. On CPAP with FiO2 55% overnight. Unable to obtain subjective due to clinical situations. 10/26: Afebrile overnight. On BiPAP 15/10 FiO2 55% overnight. Been prone overnight. c/o SOB. c/o nonproductive cough, no sputum production or respiratory wheezing. Denies chest pain. Denies fever, chills, or sweating. 10/27: Afebrile overnight. Been prone overnight. Been switched to high flow oxygen at around midnight, currently 10L/min. Denies SOB. Denies cough or sputum production. Denies wheezing. Denies chest pain. Denies fever, chills, or sweating. 10/28: Afebrile overnight. Been prone overnight. Been switched back to BiPAP 15/10, FiO2 55%. Denies SOB. Denies cough or sputum production. Denies wheezing. Denies chest pain. Denies fever, chills, or sweating. 10/29 Patient feels little bit better than yesterday. Occasional cough. Shortness of breath comes and goes. Currently on 8 to 10 L oxygen mask. 10/30 Patient says she slept fine and is feeling fine. Denies cough. Denies shortness of breath at rest. Requiring oxygen mask at 8 L. She seems to be a mouth breather and desats on nasal cannula while eating. Instructed nurse patient to be out of bed to chair several times a day along with proning. 10/31 She feels she is gradually improving. Her oxygen needs are slowly improving. She is still very weak. CRP has improved on follow-up. Occasional cough. 11/01 Feeling a little bit better today again. Down to 2 L at rest. 11/02 Patient is quite weak but doing well from a respiratory standpoint. She is on 2 to 3 L of nasal cannula and not having increased need with mild exertion in room. Likely swing status soon. There is report low heart rate 49 early this morning but bumped up in the 70s when I saw her. Looks like previous night she was low as well. Will decrease beta-erin. 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 *h/o CAD w/CABG & PVD w/stents: *h/o CVA: *CKD IIIb: stable *Anemia, chronic: *HTN/HLD: *Depression: *GERD: *Obesity: Discharge diagnosis: Covid pneumonia with large acute hypoxic respite failure Secondary discharge diagnosis: COPD tobacco abuse electrolyte abnormalities diabetes with neuropathy history of CAD stroke chronic kidney disease chronic anemia hypertension hyperlipidemia depression GERD obesity Time Spent with Patient Time attestation: Total time spent providing and/or coordinating discharge services: Time spent: Greater than 30 minutes EXAM Constitutional Vitals: Temp Pulse Resp BP Pulse Ox 97.1 F 61 17 141/50 98 11/01/20 08:01 11/01/20 05:56 11/01/20 10:01 11/01/20 10:01 11/01/20 10:01 Discharge Data Data Completed and Pending Labs on day of discharge: Labs from last 24 hours 10/31/20 19:21 Urine Color Yellow Urine Appearance Hazy A Urine pH 5.0 Ur Specific Reading 1.020 Urine Protein Negative Urine Glucose (UA) Negative Urine Ketones Negative Urine Occult Blood >=1.0 A Urine Nitrate Negative Urine Bilirubin Negative Urine Urobilinogen Negative Ur Leukocyte Esterase Negative Urine RBC > 182 H Urine WBC 5 H Ur Squamous Epith Cells 0 Urine Bacteria None Urine Yeast (Budding) Many A Ur Culture Indicated? Yes Discharge Plan Patient/Caregiver Discharge Instructions Activity: increase activity as tolerated Diet: Consistent Carbohydrate Prescriptions: New Advair HFA 230-21 mcg/actuation HFA aerosol inhaler 2 puff inhalation Q12H Qty: 8 RF: 0 metoprolol succinate [Toprol XL] 25 mg tablet extended release 24 hr 25 mg PO QDAY Qty: 30 RF: 0 Continued pantoprazole [address] for susp in packet 40 mg PO QDAY RF: 0 gabapentin 100 mg capsule 100 mg PO QDAY RF: 0 aspirin [Aspirin Childrens] 81 mg tablet,chewable 81 mg PO QDAY RF: 0 citalopram 40 mg tablet 40 mg PO QDAY RF: 0 amlodipine 5 mg tablet 5 mg PO QDAY RF: 0 Lantus Solostar U-100 Insulin 100 unit/mL (3 mL) insulin pen 30 unit subcut QAM RF: 0 losartan 50 mg tablet 100 mg PO QDAY RF: 0 oxybutynin chloride 5 mg tablet 5 mg PO QDAY RF: 0 pravastatin 40 mg tablet 40 mg PO QDAY RF: 0 trazodone 50 mg tablet 50 mg PO QHS PRN (Reason: Sleep) RF: 0 dipyridamole 25 mg tablet 50 mg PO QID RF: 0 ergocalciferol (vitamin D2) 1,250 mcg (50,000 unit) capsule 1,250 mcg PO WEEKLY RF: 0 Discontinued metoprolol succinate 50 mg tablet extended release 24 hr 50 mg PO BID RF: 0 azithromycin 250 mg tablet 250 mg PO QDAY 6 Days Qty: 6 RF: 0 Follow Up Plan Follow up with: Aleyda Mendez MD [Primary Care Provider] - Patient Disposition: Home Health Service Prognosis: Fair Overall status at discharge: patient is progressing back to baseline
[2020-11-01] MEDS: traZODone HCL 50 MG TABLET PO PRN (21:45)
[2020-11-01] MEDS: PRAVASTATIN 40 MG TABLET PO SCH (21:46)
[2020-11-02] MEDS: 0.9 % SODIUM CHLORIDE 10 ML SYRINGE IV SCH ×3 (05:59→21:22)
--- NOTE | 2020-11-02 07:47 | EKG ---
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 Consider ischemia. Electronically Signed On 11-02-2020 7:47:38 PDT by Alessio Martin /store/[email or web address]/[id number]
[2020-11-02] MEDS: INSULIN LISPRO 1 UNIT/0.01 ML UNIT SQ SCH ×4 (08:00→21:22)
--- NOTE | 2020-11-02 08:32 | Internal Med Progress Note ---
SUBJECTIVE Subjective Patient information: Note initiated : 11/02/20 at 8:31 am Service Date, if different from initiated Date: [] Patient: Sharla Michaels a 75 y/o F admitted on 10/19/20 for COVID POSITIVE, SOB. Chief Complaint: [] Interval history: Interval history: History of present illness: Ms. Michaels is a 75 year old F Patient presents to the ED with shortness of breath cough fever chills. Patient says she has been ill for about 5 days she came in yesterday and was found to be Covid positive she was offered monoclonal antibodies but refused. She is unvaccinated and says she did get vaccinated because she does not drive. Ms Michaels is yet another unvaccinated patient presenting with Covid pneumonia. She has a history of diabetes stroke vascular disease including CAD has obesity and smokes as well as has COPD. In the ED she was hypoxic in the upper 80s on room air put on several liters oxygen. 10/20 Patient feels a little bit better. Says her shortness of breath is better but still present. However nurse had to titrate to 2 to 4 L and she got up to the bedside this morning. Has productive cough. 10/21 Cough present. She says her breathing is improved today. Still requiring 4 to 5 L of oxygen. Sodium within normal limits. cr 1.4. 10/22: Been on 5L oxygen overnight. Afebrile overnight. c/o shortness of breath. c/o productive cough with white sputum. Denies wheezing. Denies chest pain. Denies fever or chill or sweating. Denies general body weakness. 10/23: Desaturated to mid 80s spo2 despite 10L oxygen. Afebrile overnight. Patient is c/o worsening SOB. c/o nonproductive cough. Denies wheezing. Denies fever or chills or sweating. 10/24: Afebrile overnight. On CPAP with FiO2 overnight. Patient is c/o SOB, improving. c/o wheezing. Denies cough or sputum production. Denies fever or chills or sweating. 10/25: Afebrile overnight. On CPAP with FiO2 55% overnight. Unable to obtain subjective due to clinical situations. 10/26: Afebrile overnight. On BiPAP 15/10 FiO2 55% overnight. Been prone overnight. c/o SOB. c/o nonproductive cough, no sputum production or respiratory wheezing. Denies chest pain. Denies fever, chills, or sweating. 10/27: Afebrile overnight. Been prone overnight. Been switched to high flow oxygen at around midnight, currently 10L/min. Denies SOB. Denies cough or sputum production. Denies wheezing. Denies chest pain. Denies fever, chills, or sweating. 10/28: Afebrile overnight. Been prone overnight. Been switched back to BiPAP 12/12, FiO2 55%. Denies SOB. Denies cough or sputum production. Denies wheezing. Denies chest pain. Denies fever, chills, or sweating. 10/29 Patient feels little bit better than yesterday. Occasional cough. Shortness of breath comes and goes. Currently on 8 to 10 L oxygen mask. 10/30 Patient says she slept fine and is feeling fine. Denies cough. Denies shortness of breath at rest. Requiring oxygen mask at 8 L. She seems to be a mouth breather and desats on nasal cannula while eating. Instructed nurse patient to be out of bed to chair several times a day along with proning. 10/31 She feels she is gradually improving. Her oxygen needs are slowly improving. She is still very weak. CRP has improved on follow-up. Occasional cough. 11/01 Feeling a little bit better today again. Down to 2 L at rest. 11/02 Patient is quite weak but doing well from a respiratory standpoint. She is on 2 to 3 L of nasal cannula and not having increased need with mild exertion in room. Likely swing status soon. There is report low heart rate 49 early this morning but bumped up in the 70s when I saw her. Looks like previous night she was low as well. Will decrease beta-erin. Review of Systems: denies headache/fever/chills/nausea/vomiting/chest or abdominal pain/diarrhea. Otherwise see above. Constitutional Vitals: Vital Signs Temp Pulse Resp BP Pulse Ox 97.3 F 61 21 107/47 96 11/02/20 08:01 11/02/20 05:58 11/02/20 08:01 11/02/20 08:01 11/02/20 08:01 Period Temp Pulse Resp BP Sys/Tai Pulse Ox Last 24 Hr 97.1 F-98.2 F 60-61 16-24 91-141/41-69 91-98 Intake and Output 11/01/20 11/02/20 11/02/20 21:59 05:59 13:59 Intake Total 880 425 Output Total 3 Balance 880 422 Weight 75.886 kg Intake & Output: Intake & Output 11/01/20 11/02/20 11/02/20 21:59 05:59 13:59 Intake Total 880 425 Output Total 3 Balance 880 422 Weight 75.886 kg Intake: Nourishment/Supplement quantity 240 (ml) Oral 640 425 Output: # of times incontinent of urine 3 Other: Meal Dinner Percent of Meal Consumed 100% Feeding Ability Assist with Tray Set Up Nourishment/Supplement name Glucerna Stool Size Small Stool Color Brown Stool Consistency Loose # of times incontinent of 1 Bowels Exam: General: Alert, Awake, No acute Distress, obese Eyes/N/T: EOMI, Head/Neck: neck supple, CV: RRR, No murmurs, Pulm: better aeration, mild fine rales b/l and wheezing b/l Abd: soft, nontender, +BS x4 Ext: no clubbing/cyanosis, trace b/l LE edema Neuro: Alert, no focal deficits, moves all extremities, Skin: warm/dry OBJ DATA Labs CBC & Chem 7: 10/28/20 05:32 10/31/20 06:06 Labs: Abnormal Lab Results 10/31/20 10/31/20 19:21 06:06 BUN 46 H Creatinine 1.4 H Uric Acid 10.1 H Direct Bilirubin 0.3 H C-Reactive Protein 5.30 H Total Protein 5.8 L Albumin 2.2 L Albumin/Globulin Ratio 0.6 L Urine Appearance Hazy A Urine Occult Blood >=1.0 A Urine RBC > 182 H Urine WBC 5 H Urine Yeast (Budding) Many A Meds: Medications Acetaminophen (Acetaminophen 325 Mg Tablet) 650 mg PO Q6HP PRN PRN Reason: PAIN/FEVER > 101 Last Admin: 11/01/20 09:30 Dose: 650 mg Documented by: Albuterol/Ipratropium (Ipratropium/Albuterol 3 Ml Ampul.Neb) 3 ml NEB Q4HP PRN PRN Reason: Shortness Of Breath Last Admin: 10/27/20 09:48 Dose: 3 ml Documented by: Amlodipine Besylate (Amlodipine 5 Mg Tablet) 5 mg PO QDAY [facility] Last Admin: 11/01/20 09:31 Dose: 5 mg Documented by: Aspirin (Aspirin 81 Mg Tab.Chew) 81 mg PO QDAY [facility] Last Admin: 11/01/20 09:31 Dose: 81 mg Documented by: Citalopram Hydrobromide (Citalopram 20 Mg Tablet) 40 mg PO DAILY [facility] Last Admin: 11/01/20 09:31 Dose: 40 mg Documented by: Dextrose (Dextrose 50% 50 Ml Vial) 0 ml IV UD PRN PRN Reason: Hypoglycemia Diagnostic Test (Pha) (Accu-Chek 1 Each Strip) 1 each FS ACHS [facility] Last Admin: 11/01/20 21:44 Dose: 1 each Documented by: Dipyridamole (Dipyridamole 25 Mg Tablet) 50 mg PO QID [facility] Last Admin: 11/01/20 21:46 Dose: 50 mg Documented by: Docusate Sodium (Docusate Sodium 100 Mg Capsule) 100 mg PO BID [facility] Last Admin: 11/01/20 21:46 Dose: Not Given Documented by: Enoxaparin Sodium (Enoxaparin 40 Mg/0.4 Ml Syringe) 40 mg SQ BID [facility] Last Admin: 11/01/20 21:46 Dose: 40 mg Documented by: Gabapentin (Gabapentin 100 Mg Capsule) 100 mg PO QDAY [facility] Last Admin: 11/01/20 09:31 Dose: 100 mg Documented by: Glucose (Dextrose 31 Gm Oral.Susp) 15 gm PO PRN PRN PRN Reason: Hypoglycemia Guaifenesin (Guaifenesin/Dextromethorphan Oral Adelita) 10 ml PO Q4HP PRN PRN Reason: Cough Last Admin: 10/27/20 08:26 Dose: 10 ml Documented by: Magnesium Sulfate (Magnesium Sulfate) 2 gm in 50 mls @ 50 mls/hr IV UD PRN PRN Reason: Magnesium </= 1.6 Potassium Chloride 40 meq/ (Dextrose) 520 mls @ 130 mls/hr IV UD PRN PRN Reason: Potassium < 3 Insulin Glargine (Insulin Glargine, Human 1 Unit/0.01 Ml) 30 unit SQ QAM [facility] Last Admin: 11/01/20 09:30 Dose: 30 units Documented by: Insulin Human Lispro (Insulin Lispro 1 Unit/0.01 Ml Unit) 0 unit SQ [facility]; Protocol Last Admin: 11/01/20 21:44 Dose: 8 units Documented by: Lorazepam (Lorazepam 2 Mg/Ml Vial) 1 mg IV Q4HP PRN PRN Reason: ANXIETY/SEDATION Last Admin: 10/25/20 23:21 Dose: 1 mg Documented by: Losartan Potassium (Losartan 50 Mg Tablet) 100 mg PO QDAY [facility] Last Admin: 11/01/20 09:31 Dose: 100 mg Documented by: Metoprolol Succinate (Metoprolol Succinate 50 Mg Tab.Xl.24h) 50 mg PO BID [facility] Last Admin: 11/01/20 21:47 Dose: Not Given Documented by: Ondansetron HCl (Ondansetron 4 Mg/2 Ml Vial) 4 mg IV Q4HP PRN PRN Reason: Nausea And Vomiting Oxybutynin Chloride (Oxybutynin Chloride 5 Mg Tablet) 5 mg PO QDAY [facility] Last Admin: 11/01/20 09:31 Dose: 5 mg Documented by: Pantoprazole Sodium (Pantoprazole 40 Mg Packet) 40 mg PO QAMAC [facility] Last Admin: 11/01/20 09:31 Dose: 40 mg Documented by: Polyethylene Glycol (Polyethylene Glycol 3350 17 Gm Packet) 17 gm PO DAILYP PRN PRN Reason: Constipation Last Admin: 10/30/20 08:49 Dose: 17 gm Documented by: Potassium Chloride (Potassium Chloride 20 Meq Tablet) 40 meq PO UD PRN PRN Reason: Potssium is 3-3.5 Potassium Chloride (Potassium Chloride 20 Meq Tablet) 40 meq PO UD PRN PRN Reason: Potassium < 3 Pravastatin Sodium (Pravastatin 40 Mg Tablet) 40 mg PO HS [facility] Last Admin: 11/01/20 21:46 Dose: 40 mg Documented by: Fluticasone/Salmeterol (Fluticasone/Salmeterol 250/50 Inhaler #14) 1 puff INH BID [facility] Last Admin: 11/01/20 21:44 Dose: 1 puff Documented by: Senna (Sennosides 1 Tablet) 2 tab PO DAILYP PRN PRN Reason: Constipation Last Admin: 10/30/20 22:02 Dose: 2 tab Documented by: Sodium Chloride (0.9 % Sodium Chloride 10 Ml Syringe) 10 ml IV Q8 [facility] Last Admin: 11/02/20 05:59 Dose: 10 ml Documented by: Trazodone HCl (Trazodone Hcl 50 Mg Tablet) 50 mg PO QHS PRN PRN Reason: Sleep Last Admin: 11/01/20 21:45 Dose: 50 mg Documented by: A/P Narrative A/P Narrative: A: *Covid pneumonia w/ARDS: improving -afebrile *Acute hypoxic respiratory failure: -down to Oxymask @ 2L, no bipap since early on 10/28 *COPD(not 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 *h/o CAD w/CABG & PVD w/stents: *h/o CVA: *CKD IIIb: stable *Anemia, chronic: *HTN/HLD: *Depression: *GERD: *Obesity: P: -Remdesivir & Dexamethasone finished -O2 supp, wean as able with goal 89-94% given copd -Proning and mobilization oob to chair, IS/Acapella, prn nebs -cont losartan/BB(hold)/norvasc -cont on ASA/Dipyradamole -basal and SSI -started advair for copd -Smoking cessation counseling -PT/OT -CM for placement vs swing bed -ppx: Lovenox twice daily /home PPI Code status: full time Spent With Patient Time: Total time spent is greater than 50% in coordination of care (as documented) at patient's floor/unit and/or counseling patient:
[2020-11-02] MEDS: METOPROLOL SUCCINATE 50 MG TAB.XL.24H PO SCH (09:21)
[2020-11-02] MEDS: FLUTICASONE/SALMETEROL 250/50 INHALER #14 INH SCH ×2 (09:43→21:19)
[2020-11-02] MEDS: INSULIN GLARGINE, HUMAN 1 UNIT/0.01 ML SQ SCH (09:43)
[2020-11-02] MEDS: ACETAMINOPHEN 325 MG TABLET PO PRN (09:44)
[2020-11-02] MEDS: PANTOPRAZOLE 40 MG PACKET PO SCH (09:44)
[2020-11-02] MEDS: CITALOPRAM 20 MG TABLET PO SCH (09:45)
[2020-11-02] MEDS: ASPIRIN 81 MG TAB.CHEW PO SCH (09:46)
[2020-11-02] MEDS: amLODIPine 5 MG TABLET PO SCH (09:46)
[2020-11-02] MEDS: LOSARTAN 50 MG TABLET PO SCH (09:46)
[2020-11-02] MEDS: GABAPENTIN 100 MG CAPSULE PO SCH (09:46)
[2020-11-02] MEDS: OXYBUTYNIN CHLORIDE 5 MG TABLET PO SCH (09:46)
[2020-11-02] MEDS: DOCUSATE SODIUM 100 MG CAPSULE PO SCH ×2 (09:46→21:20)
[2020-11-02] MEDS: ENOXAPARIN 40 MG/0.4 ML SYRINGE SQ SCH ×2 (09:46→21:22)
[2020-11-02] MEDS: DIPYRIDAMOLE 25 MG TABLET PO SCH ×4 (09:46→21:20)
[2020-11-02] MEDS ORDERED: POTASSIUM CHLORIDE 20 MEQ TABLET PO PRN ×2 (11:58)
[2020-11-02] MEDS ORDERED: guaiFENesin/DEXTROMETHORPHAN ORAL SOL PO PRN (11:58)
[2020-11-02] MEDS ORDERED: SENNOSIDES 1 TABLET PO PRN (11:58)
[2020-11-02] MEDS ORDERED: LORazepam 2 MG/ML VIAL IV PRN (11:58)
[2020-11-02] MEDS ORDERED: POTASSIUM CHLORIDE 40 MEQ in DEXTROSE 5% IN WATER 500 ML IV PRN (11:58)
[2020-11-02] MEDS ORDERED: DEXTROSE 31 GM ORAL.SUSP PO PRN (11:58)
[2020-11-02] MEDS ORDERED: POLYETHYLENE GLYCOL 3350 17 GM PACKET PO PRN (11:58)
[2020-11-02] MEDS ORDERED: ONDANSETRON 4 MG/2 ML VIAL IV PRN (11:58)
[2020-11-02] MEDS ORDERED: IPRATROPIUM/ALBUTEROL 3 ML AMPUL.NEB NEB PRN (11:58)
[2020-11-02] MEDS ORDERED: MAGNESIUM SULFATE 2 GM/50 ML BAG IV PRN (11:58)
[2020-11-02] MEDS ORDERED: DEXTROSE 50% 50 ML VIAL IV PRN (11:58)
[2020-11-02] MEDS ORDERED: traZODone HCL 50 MG TABLET PO PRN (11:58)
[2020-11-02] MEDS: PRAVASTATIN 40 MG TABLET PO SCH (21:21)
[2020-11-03] MEDS: 0.9 % SODIUM CHLORIDE 10 ML SYRINGE IV SCH ×3 (05:57→20:34)
[2020-11-03] MEDS: INSULIN LISPRO 1 UNIT/0.01 ML UNIT SQ SCH ×4 (07:39→20:43)
--- NOTE | 2020-11-03 07:52 | Internal Med Progress Note ---
SUBJECTIVE Subjective Patient information: Note initiated : 11/03/20 at 7:52 am Service Date, if different from initiated Date: [] Patient: Sharla Michaels a 75 y/o F admitted on 10/19/20 for COVID POSITIVE, SOB. Chief Complaint: [] Interval history: Interval history: History of present illness: Ms. Michaels is a 75 year old F Patient presents to the ED with shortness of breath cough fever chills. Patient says she has been ill for about 5 days she came in yesterday and was found to be Covid positive she was offered monoclonal antibodies but refused. She is unvaccinated and says she did get vaccinated because she does not drive. Ms Michaels is yet another unvaccinated patient presenting with Covid pneumonia. She has a history of diabetes stroke vascular disease including CAD has obesity and smokes as well as has COPD. In the ED she was hypoxic in the upper 80s on room air put on several liters oxygen. 10/20 Patient feels a little bit better. Says her shortness of breath is better but still present. However nurse had to titrate to 2 to 4 L and she got up to the bedside this morning. Has productive cough. 10/21 Cough present. She says her breathing is improved today. Still requiring 4 to 5 L of oxygen. Sodium within normal limits. cr 1.4. 10/22: Been on 5L oxygen overnight. Afebrile overnight. c/o shortness of breath. c/o productive cough with white sputum. Denies wheezing. Denies chest pain. Denies fever or chill or sweating. Denies general body weakness. 10/23: Desaturated to mid 80s spo2 despite 10L oxygen. Afebrile overnight. Patient is c/o worsening SOB. c/o nonproductive cough. Denies wheezing. Denies fever or chills or sweating. 10/24: Afebrile overnight. On CPAP with FiO2 overnight. Patient is c/o SOB, improving. c/o wheezing. Denies cough or sputum production. Denies fever or chills or sweating. 10/25: Afebrile overnight. On CPAP with FiO2 55% overnight. Unable to obtain subjective due to clinical situations. 10/26: Afebrile overnight. On BiPAP 15/10 FiO2 55% overnight. Been prone overnight. c/o SOB. c/o nonproductive cough, no sputum production or respiratory wheezing. Denies chest pain. Denies fever, chills, or sweating. 10/27: Afebrile overnight. Been prone overnight. Been switched to high flow oxygen at around midnight, currently 10L/min. Denies SOB. Denies cough or sputum production. Denies wheezing. Denies chest pain. Denies fever, chills, or sweating. 10/28: Afebrile overnight. Been prone overnight. Been switched back to BiPAP 12/12, FiO2 55%. Denies SOB. Denies cough or sputum production. Denies wheezing. Denies chest pain. Denies fever, chills, or sweating. 10/29 Patient feels little bit better than yesterday. Occasional cough. Shortness of breath comes and goes. Currently on 8 to 10 L oxygen mask. 10/30 Patient says she slept fine and is feeling fine. Denies cough. Denies shortness of breath at rest. Requiring oxygen mask at 8 L. She seems to be a mouth breather and desats on nasal cannula while eating. Instructed nurse patient to be out of bed to chair several times a day along with proning. 10/31 She feels she is gradually improving. Her oxygen needs are slowly improving. She is still very weak. CRP has improved on follow-up. Occasional cough. 11/01 Feeling a little bit better today again. Down to 2 L at rest. 11/02 Patient is quite weak but doing well from a respiratory standpoint. She is on 2 to 3 L of nasal cannula and not having increased need with mild exertion in room. Likely swing status soon. There is report low heart rate 49 early this morning but bumped up in the 70s when I saw her. Looks like previous night she was low as well. Will decrease beta-erin. 11/03 No overnight event or new complaints. Patient denies shortness of breath or cough. Review of Systems: denies headache/fever/chills/nausea/vomiting/chest or abdominal pain/diarrhea. Otherwise see above. Constitutional Vitals: Vital Signs Temp Pulse Resp BP Pulse Ox 96.7 F L 58 L 18 143/60 98 11/03/20 07:42 11/03/20 07:42 11/03/20 07:42 11/03/20 07:42 11/03/20 07:42 Period Temp Pulse Resp BP Sys/Tai Pulse Ox Last 24 Hr 96.7 F-98.6 F 58-70 17-26 107-165/47-78 88-98 Intake and Output 11/02/20 11/03/20 11/03/20 21:59 05:59 13:59 Intake Total 717 400 Output Total 1 2 201 Balance 716 398 -201 Weight 76.204 kg Intake & Output: Intake & Output 11/02/20 11/03/20 11/03/20 21:59 05:59 13:59 Intake Total 717 400 Output Total 1 2 201 Balance 716 398 -201 Weight 76.204 kg Intake: Nourishment/Supplement quantity 237 (ml) Oral 480 400 Output: Urine Catheter Amount 200 Straight 200 # of times incontinent of urine 1 2 1 Other: Meal Dinner Percent of Meal Consumed 100% Feeding Ability Independent Urine Appearance Straight Clear Urine Color Straight Bright Yellow Exam: General: Alert, Awake, No acute Distress, obese Eyes/N/T: EOMI, Head/Neck: neck supple, CV: RRR, No murmurs, Pulm: better aeration, minimal fine rales b/l, no wheezing Abd: soft, nontender, +BS x4 Ext: no clubbing/cyanosis, trace b/l LE edema Neuro: Alert, no focal deficits, moves all extremities, Skin: warm/dry OBJ DATA Labs CBC & Chem 7: 10/28/20 05:32 10/31/20 06:06 Labs: Abnormal Lab Results 10/31/20 10/31/20 19:21 06:06 BUN 46 H Creatinine 1.4 H Uric Acid 10.1 H Direct Bilirubin 0.3 H C-Reactive Protein 5.30 H Total Protein 5.8 L Albumin 2.2 L Albumin/Globulin Ratio 0.6 L Urine Appearance Hazy A Urine Occult Blood >=1.0 A Urine RBC > 182 H Urine WBC 5 H Urine Yeast (Budding) Many A Meds: Medications Acetaminophen (Acetaminophen 325 Mg Tablet) 650 mg PO Q6HP PRN PRN Reason: PAIN/FEVER > 101 Albuterol/Ipratropium (Ipratropium/Albuterol 3 Ml Ampul.Neb) 3 ml NEB Q4HP PRN PRN Reason: Shortness Of Breath Amlodipine Besylate (Amlodipine 5 Mg Tablet) 5 mg PO QDAY [facility] Aspirin (Aspirin 81 Mg Tab.Chew) 81 mg PO QDAY [facility] Citalopram Hydrobromide (Citalopram 20 Mg Tablet) 40 mg PO DAILY [facility] Dextrose (Dextrose 50% 50 Ml Vial) 0 ml IV UD PRN PRN Reason: Hypoglycemia Diagnostic Test (Pha) (Accu-Chek 1 Each Strip) 1 each FS [facility] Last Admin: 11/03/20 07:39 Dose: 1 each Documented by: Dipyridamole (Dipyridamole 25 Mg Tablet) 50 mg PO QID [facility] Last Admin: 11/02/20 21:20 Dose: 50 mg Documented by: Docusate Sodium (Docusate Sodium 100 Mg Capsule) 100 mg PO BID [facility] Last Admin: 11/02/20 21:20 Dose: Not Given Documented by: Enoxaparin Sodium (Enoxaparin 40 Mg/0.4 Ml Syringe) 40 mg SQ BID [facility] Last Admin: 11/02/20 21:22 Dose: 40 mg Documented by: Gabapentin (Gabapentin 100 Mg Capsule) 100 mg PO QDAY [facility] Glucose (Dextrose 31 Gm Oral.Susp) 15 gm PO PRN PRN PRN Reason: Hypoglycemia Guaifenesin (Guaifenesin/Dextromethorphan Oral Adelita) 10 ml PO Q4HP PRN PRN Reason: Cough Magnesium Sulfate (Magnesium Sulfate) 2 gm in 50 mls @ 50 mls/hr IV UD PRN PRN Reason: Magnesium </= 1.6 Potassium Chloride 40 meq/ (Dextrose) 520 mls @ 130 mls/hr IV UD PRN PRN Reason: Potassium < 3 Insulin Glargine (Insulin Glargine, Human 1 Unit/0.01 Ml) [facility] Insulin Human Lispro (Insulin Lispro 1 Unit/0.01 Ml Unit) 0 unit SQ [facility]; Protocol Last Admin: 11/03/20 07:39 Dose: Not Given Documented by: Lorazepam (Lorazepam 2 Mg/Ml Vial) 1 mg IV Q4HP PRN PRN Reason: ANXIETY/SEDATION Losartan Potassium (Losartan 50 Mg Tablet) 100 mg PO QDAY [facility] Ondansetron HCl (Ondansetron 4 Mg/2 Ml Vial) 4 mg IV Q4HP PRN PRN Reason: Nausea And Vomiting Oxybutynin Chloride (Oxybutynin Chloride 5 Mg Tablet) 5 mg PO QDAY [facility] Pantoprazole Sodium (Pantoprazole 40 Mg Packet) 40 mg PO QAMAC [facility] Polyethylene Glycol (Polyethylene Glycol 3350 17 Gm Packet) 17 gm PO DAILYP PRN PRN Reason: Constipation Potassium Chloride (Potassium Chloride 20 Meq Tablet) 40 meq PO UD PRN PRN Reason: Potssium is 3-3.5 Potassium Chloride (Potassium Chloride 20 Meq Tablet) 40 meq PO UD PRN PRN Reason: Potassium < 3 Pravastatin Sodium (Pravastatin 40 Mg Tablet) 40 mg PO HS [facility] Last Admin: 11/02/20 21:21 Dose: 40 mg Documented by: Fluticasone/Salmeterol (Fluticasone/Salmeterol 250/50 Inhaler #14) 1 puff INH BID [facility] Last Admin: 11/02/20 21:19 Dose: 1 puff Documented by: Senna (Sennosides 1 Tablet) 2 tab PO DAILYP PRN PRN Reason: Constipation Sodium Chloride (0.9 % Sodium Chloride 10 Ml Syringe) 10 ml IV Q8 [facility] Last Admin: 11/03/20 05:57 Dose: 10 ml Documented by: Trazodone HCl (Trazodone Hcl 50 Mg Tablet) 50 mg PO QHS PRN PRN Reason: Sleep A/P Narrative A/P Narrative: A: *Covid pneumonia w/ARDS: improving -afebrile *Acute hypoxic respiratory failure: -down to 1L [place] *COPD(not 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 *h/o CAD w/CABG & PVD w/stents: *h/o CVA: *CKD IIIb: stable *Anemia, chronic: *HTN/HLD: *Depression: *GERD: *Obesity: P: -Remdesivir & Dexamethasone finished -O2 supp, wean as able with goal 89-94% given copd -Proning and mobilization oob to chair, IS/Acapella, prn nebs -cont losartan/BB(hold)/norvasc -cont on ASA/Dipyradamole -basal and SSI -started advair for copd -Smoking cessation counseling -PT/OT -CM for placement vs swing bed -ppx: Lovenox twice daily /home PPI 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
[2020-11-03] MEDS: DOCUSATE SODIUM 100 MG CAPSULE PO SCH ×2 (08:56→20:43)
[2020-11-03] MEDS: DIPYRIDAMOLE 25 MG TABLET PO SCH ×4 (09:24→20:35)
[2020-11-03] MEDS: OXYBUTYNIN CHLORIDE 5 MG TABLET PO SCH (09:46)
[2020-11-03] MEDS: ENOXAPARIN 40 MG/0.4 ML SYRINGE SQ SCH ×2 (09:46→20:34)
[2020-11-03] MEDS: INSULIN GLARGINE, HUMAN 1 UNIT/0.01 ML SQ SCH (09:46)
[2020-11-03] MEDS: PANTOPRAZOLE 40 MG PACKET PO SCH (09:46)
[2020-11-03] MEDS: FLUTICASONE/SALMETEROL 250/50 INHALER #14 INH SCH ×2 (09:47→20:38)
[2020-11-03] MEDS: LOSARTAN 50 MG TABLET PO SCH (09:47)
[2020-11-03] MEDS: ASPIRIN 81 MG TAB.CHEW PO SCH (09:47)
[2020-11-03] MEDS: CITALOPRAM 20 MG TABLET PO SCH (09:47)
[2020-11-03] MEDS: GABAPENTIN 100 MG CAPSULE PO SCH (09:47)
[2020-11-03] MEDS: amLODIPine 5 MG TABLET PO SCH (09:47)
[2020-11-03] MEDS: PRAVASTATIN 40 MG TABLET PO SCH (20:35)
[2020-11-04] MEDS: ACETAMINOPHEN 325 MG TABLET PO PRN ×2 (00:45→22:54)
[2020-11-04] MEDS: 0.9 % SODIUM CHLORIDE 10 ML SYRINGE IV SCH ×3 (05:44→20:24)
[2020-11-04] MEDS: INSULIN LISPRO 1 UNIT/0.01 ML UNIT SQ SCH ×4 (09:07→20:34)
[2020-11-04] MEDS: INSULIN GLARGINE, HUMAN 1 UNIT/0.01 ML SQ SCH (09:07)
[2020-11-04] MEDS: DIPYRIDAMOLE 25 MG TABLET PO SCH ×4 (09:08→20:24)
[2020-11-04] MEDS: ENOXAPARIN 40 MG/0.4 ML SYRINGE SQ SCH (09:09)
[2020-11-04] MEDS: LOSARTAN 50 MG TABLET PO SCH (09:10)
[2020-11-04] MEDS: amLODIPine 5 MG TABLET PO SCH (09:10)
[2020-11-04] MEDS: OXYBUTYNIN CHLORIDE 5 MG TABLET PO SCH (09:10)
[2020-11-04] MEDS: ASPIRIN 81 MG TAB.CHEW PO SCH (09:10)
[2020-11-04] MEDS: CITALOPRAM 20 MG TABLET PO SCH (09:10)
[2020-11-04] MEDS: GABAPENTIN 100 MG CAPSULE PO SCH (09:11)
[2020-11-04] MEDS: PANTOPRAZOLE 40 MG PACKET PO SCH (09:11)
[2020-11-04] MEDS: FLUTICASONE/SALMETEROL 250/50 INHALER #14 INH SCH ×2 (09:12→20:24)
[2020-11-04] MEDS: DOCUSATE SODIUM 100 MG CAPSULE PO SCH ×2 (09:12→20:24)
--- NOTE | 2020-11-04 11:27 | Internal Med Progress Note ---
SUBJECTIVE Subjective Patient information: Note initiated : 11/04/20 at 11:25 am Service Date, if different from initiated Date: [] Patient: Sharla Michaels a 75 y/o F admitted on 10/19/20 for COVID POSITIVE, SOB. Chief Complaint: [] Interval history: History of present illness: Ms. Michaels is a 75 year old F Patient presents to the ED with shortness of breath cough fever chills. Patient says she has been ill for about 5 days she came in yesterday and was found to be Covid positive she was offered monoclonal antibodies but refused. She is unvaccinated and says she did get vaccinated because she does not drive. Ms Michaels is yet another unvaccinated patient presenting with Covid pneumonia. She has a history of diabetes stroke vascular disease including CAD has obesity and smokes as well as has COPD. In the ED she was hypoxic in the upper 80s on room air put on several liters oxygen. 10/20 Patient feels a little bit better. Says her shortness of breath is better but still present. However nurse had to titrate to 2 to 4 L and she got up to the bedside this morning. Has productive cough. 10/21 Cough present. She says her breathing is improved today. Still requiring 4 to 5 L of oxygen. Sodium within normal limits. cr 1.4. 10/22: Been on 5L oxygen overnight. Afebrile overnight. c/o shortness of breath. c/o productive cough with white sputum. Denies wheezing. Denies chest pain. Denies fever or chill or sweating. Denies general body weakness. 10/23: Desaturated to mid 80s spo2 despite 10L oxygen. Afebrile overnight. Patient is c/o worsening SOB. c/o nonproductive cough. Denies wheezing. Denies fever or chills or sweating. 10/24: Afebrile overnight. On CPAP with FiO2 overnight. Patient is c/o SOB, improving. c/o wheezing. Denies cough or sputum production. Denies fever or chills or sweating. 10/25: Afebrile overnight. On CPAP with FiO2 55% overnight. Unable to obtain subjective due to clinical situations. 10/26: Afebrile overnight. On BiPAP 15/10 FiO2 55% overnight. Been prone overnight. c/o SOB. c/o nonproductive cough, no sputum production or respiratory wheezing. Denies chest pain. Denies fever, chills, or sweating. 10/27: Afebrile overnight. Been prone overnight. Been switched to high flow oxygen at around midnight, currently 10L/min. Denies SOB. Denies cough or sputum production. Denies wheezing. Denies chest pain. Denies fever, chills, or sweating. 10/28: Afebrile overnight. Been prone overnight. Been switched back to BiPAP 1510, FiO2 55%. Denies SOB. Denies cough or sputum production. Denies wheezing. Denies chest pain. Denies fever, chills, or sweating. 10/29 Patient feels little bit better than yesterday. Occasional cough. Shortness of breath comes and goes. Currently on 8 to 10 L oxygen mask. 10/30 Patient says she slept fine and is feeling fine. Denies cough. Denies shortness of breath at rest. Requiring oxygen mask at 8 L. She seems to be a mouth breather and desats on nasal cannula while eating. Instructed nurse patient to be out of bed to chair several times a day along with proning. 10/31 She feels she is gradually improving. Her oxygen needs are slowly improving. She is still very weak. CRP has improved on follow-up. Occasional cough. 11/01 Feeling a little bit better today again. Down to 2 L at rest. 11/02 Patient is quite weak but doing well from a respiratory standpoint. She is on 2 to 3 L of nasal cannula and not having increased need with mild exertion in room. Likely swing status soon. There is report low heart rate 49 early this morning but bumped up in the 70s when I saw her. Looks like previous night she was low as well. Will decrease beta-erin. 11/03 No overnight event or new complaints. Patient denies shortness of breath or cough. 11/04: Patient is no room air. Afebrile. Denies SOB. Denies cough or sputum production or wheezing. Constitutional Vitals: Vital Signs Temp Pulse Resp BP Pulse Ox 36.8 C 66 20 142/63 93 11/04/20 08:55 11/04/20 08:55 11/04/20 08:55 11/04/20 08:55 11/04/20 08:55 Period Temp Pulse Resp BP Sys/Tai Pulse Ox Last 24 Hr 36.2 C-37.7 C 64-77 18-20 121-159/59-64 91-97 Intake and Output 11/03/20 11/04/20 11/04/20 21:59 05:59 13:59 Intake Total 400 100 200 Output Total 2 Balance 400 98 200 Weight 79.379 kg Intake & Output: Intake & Output 11/03/20 11/04/20 11/04/20 21:59 05:59 13:59 Intake Total 400 100 200 Output Total 2 Balance 400 98 200 Weight 79.379 kg Intake: Oral 400 100 200 Output: # of times incontinent of urine 2 Other: Stool Size Large Small Stool Color Brown Brown Stool Consistency Soft Liquid # Voids 1 1 # Bowel Movements 1 # of times incontinent of 1 Bowels General appearance: cooperative and no acute distress Exam: Prone Head Head exam: Present atraumatic and normocephalic Eye Eye exam: Present EOMI and PERRL ENT ENT exam: Present mucous membranes moist, normal exam and normal external ear exam Neck Neck exam: Present normal inspection; Absent lymphadenopathy, tenderness and thyromegaly Respiratory Respiratory exam: Present rhonchi; Absent accessory muscle use, respiratory distress and wheezes Cardiovascular Cardiovascular exam: Present normal rate and rhythm; Absent JVD GI/Abdominal GI/Abdominal exam: Present normal bowel sounds and soft; Absent organomegaly and tenderness Extremities Exam Extremities exam: Present full ROM, normal capillary refill and normal inspect ion; Absent tenderness Neurological Exam Neurological exam: Present alert, CN II-XII intact and oriented X3; Absent motor sensory deficit Psychiatric Psychiatric exam: Present normal affect and normal mood; Absent anxious and depressed Skin Skin exam: Present dry and intact OBJ DATA Labs CBC & Chem 7: 10/28/20 05:32 10/31/20 06:06 Meds: Medications Acetaminophen (Acetaminophen 325 Mg Tablet) 650 mg PO Q6HP PRN PRN Reason: PAIN/FEVER > 101 Last Admin: 11/04/20 00:45 Dose: 650 mg Documented by: Albuterol/Ipratropium (Ipratropium/Albuterol 3 Ml Ampul.Neb) 3 ml NEB Q4HP PRN PRN Reason: Shortness Of Breath Amlodipine Besylate (Amlodipine 5 Mg Tablet) 5 mg PO QDAY [facility] Last Admin: 11/04/20 09:10 Dose: 5 mg Documented by: Aspirin (Aspirin 81 Mg Tab.Chew) 81 mg PO QDAY [facility] Last Admin: 11/04/20 09:10 Dose: 81 mg Documented by: Citalopram Hydrobromide (Citalopram 20 Mg Tablet) 40 mg PO DAILY [facility] Last Admin: 11/04/20 09:10 Dose: 40 mg Documented by: Dextrose (Dextrose 50% 50 Ml Vial) 0 ml IV UD PRN PRN Reason: Hypoglycemia Diagnostic Test (Pha) (Accu-Chek 1 Each Strip) 1 each FS [facility] Last Admin: 11/04/20 09:06 Dose: 1 each Documented by: Dipyridamole (Dipyridamole 25 Mg Tablet) 50 mg PO QID [facility] Last Admin: 11/04/20 09:08 Dose: 50 mg Documented by: Docusate Sodium (Docusate Sodium 100 Mg Capsule) 100 mg PO BID [facility] Last Admin: 11/04/20 09:12 Dose: Not Given Documented by: Enoxaparin Sodium (Enoxaparin 40 Mg/0.4 Ml Syringe) 40 mg SQ BID [facility] Last Admin: 11/04/20 09:09 Dose: 40 mg Documented by: Gabapentin (Gabapentin 100 Mg Capsule) 100 mg PO QDAY [facility] Last Admin: 11/04/20 09:11 Dose: 100 mg Documented by: Glucose (Dextrose 31 Gm Oral.Susp) 15 gm PO PRN PRN PRN Reason: Hypoglycemia Guaifenesin (Guaifenesin/Dextromethorphan Oral Adelita) 10 ml PO Q4HP PRN PRN Reason: Cough Magnesium Sulfate (Magnesium Sulfate) 2 gm in 50 mls @ 50 mls/hr IV UD PRN PRN Reason: Magnesium </= 1.6 Potassium Chloride 40 meq/ (Dextrose) 520 mls @ 130 mls/hr IV UD PRN PRN Reason: Potassium < 3 Insulin Glargine (Insulin Glargine, Human 1 Unit/0.01 Ml) 30 unit SQ [facility] Last Admin: 11/04/20 09:07 Dose: 30 units Documented by: Insulin Human Lispro (Insulin Lispro 1 Unit/0.01 Ml Unit) 0 unit SQ [facility]; Protocol Last Admin: 11/04/20 09:07 Dose: Not Given Documented by: Lorazepam (Lorazepam 2 Mg/Ml Vial) 1 mg IV Q4HP PRN PRN Reason: ANXIETY/SEDATION Losartan Potassium (Losartan 50 Mg Tablet) 100 mg PO QDAY [facility] Last Admin: 11/04/20 09:10 Dose: 100 mg Documented by: Ondansetron HCl (Ondansetron 4 Mg/2 Ml Vial) 4 mg IV Q4HP PRN PRN Reason: Nausea And Vomiting Oxybutynin Chloride (Oxybutynin Chloride 5 Mg Tablet) 5 mg PO QDAY [facility] Last Admin: 11/04/20 09:10 Dose: 5 mg Documented by: Pantoprazole Sodium (Pantoprazole 40 Mg Packet) 40 mg PO QAMAC [facility] Last Admin: 11/04/20 09:11 Dose: 40 mg Documented by: Polyethylene Glycol (Polyethylene Glycol 3350 17 Gm Packet) 17 gm PO DAILYP PRN PRN Reason: Constipation Potassium Chloride (Potassium Chloride 20 Meq Tablet) 40 meq PO UD PRN PRN Reason: Potssium is 3-3.5 Potassium Chloride (Potassium Chloride 20 Meq Tablet) 40 meq PO UD PRN PRN Reason: Potassium < 3 Pravastatin Sodium (Pravastatin 40 Mg Tablet) 40 mg PO HS [facility] Last Admin: 11/03/20 20:35 Dose: 40 mg Documented by: Fluticasone/Salmeterol (Fluticasone/Salmeterol 250/50 Inhaler #14) 1 puff INH BID [facility] Last Admin: 11/04/20 09:12 Dose: 1 puff Documented by: Senna (Sennosides 1 Tablet) 2 tab PO DAILYP PRN PRN Reason: Constipation Sodium Chloride (0.9 % Sodium Chloride 10 Ml Syringe) 10 ml IV Q8 [facility] Last Admin: 11/04/20 05:44 Dose: 10 ml Documented by: Trazodone HCl (Trazodone Hcl 50 Mg Tablet) 50 mg PO QHS PRN PRN Reason: Sleep A/P Assessment and plan (1) Hypochromic microcytic anemia: Status: Acute (2) COVID-19: Status: Acute (3) COPD (chronic obstructive pulmonary disease): Status: Acute (4) Essential (primary) hypertension: Status: Acute (5) Mixed dyslipidemia: Status: Acute (6) Depression: Status: Acute Narrative A/P Narrative: Assessment and Plans: 1. CoVID pneumonia: d/c isolation protocol Currently tolerating room air Finished Remdesivir Finsihed Dexamethasone Lovenox PPX dose 2. h/o COPD, stable: Currently tolerating room air Continue bronchodilators PRN wheezing Dexamethasone PO 3. Anemia, microcytic hypochromic: cbc w/ auto diff in the morning to trend H/H; transfuse pRBC if hemoglobin <7.0, active bleeding, or symptomatic 4. Essential HTN: Currently normotensive Continue Metoprolol succinate, Amlodipine and Losartan Lasix 5. Depression: Citalopram GI ppx: not currently indicated DVT ppx: Lovenox Code status: Full Prognosis: stable Disposition: inpatient med surg; pending PT OT evaluation for placement Time Spent With Patient Time: Total time spent is greater than 50% in coordination of care (as documented) at patient's floor/unit and/or counseling patient:
[2020-11-04] MEDS: PRAVASTATIN 40 MG TABLET PO SCH (20:24)
[2020-11-05] MEDS: 0.9 % SODIUM CHLORIDE 10 ML SYRINGE IV SCH ×2 (04:15→15:43)
[2020-11-05] MEDS: OXYBUTYNIN CHLORIDE 5 MG TABLET PO SCH (08:34)
[2020-11-05] MEDS: LOSARTAN 50 MG TABLET PO SCH (08:34)
[2020-11-05] MEDS: GABAPENTIN 100 MG CAPSULE PO SCH (08:35)
[2020-11-05] MEDS: ASPIRIN 81 MG TAB.CHEW PO SCH (08:35)
[2020-11-05] MEDS: PANTOPRAZOLE 40 MG PACKET PO SCH (08:35)
[2020-11-05] MEDS: amLODIPine 5 MG TABLET PO SCH (08:35)
[2020-11-05] MEDS: CITALOPRAM 20 MG TABLET PO SCH (08:35)
[2020-11-05] MEDS: DOCUSATE SODIUM 100 MG CAPSULE PO SCH ×2 (08:36→20:29)
[2020-11-05] MEDS: DIPYRIDAMOLE 25 MG TABLET PO SCH ×4 (08:36→20:30)
[2020-11-05] MEDS: FLUTICASONE/SALMETEROL 250/50 INHALER #14 INH SCH ×2 (08:36→20:37)
[2020-11-05] MEDS: ENOXAPARIN 40 MG/0.4 ML SYRINGE SQ SCH (08:37)
[2020-11-05] MEDS: INSULIN LISPRO 1 UNIT/0.01 ML UNIT SQ SCH ×4 (10:24→20:31)
[2020-11-05] MEDS: INSULIN GLARGINE, HUMAN 1 UNIT/0.01 ML SQ SCH (10:25)
--- NOTE | 2020-11-05 12:03 | Internal Med Progress Note ---
SUBJECTIVE Subjective Patient information: Note initiated : 11/05/20 at 12:02 pm Service Date, if different from initiated Date: [] Patient: Sharla Michaels a 75 y/o F admitted on 10/19/20 for COVID POSITIVE, SOB. Chief Complaint: [CoVID pneumonia] Interval history: History of present illness: Ms. Michaels is a 75 year old F Patient presents to the ED with shortness of breath cough fever chills. Patient says she has been ill for about 5 days she came in yesterday and was found to be Covid positive she was offered monoclonal antibodies but refused. She is unvaccinated and says she did get vaccinated because she does not drive. Ms Michaels is yet another unvaccinated patient presenting with Covid pneumonia. She has a history of diabetes stroke vascular disease including CAD has obesity and smokes as well as has COPD. In the ED she was hypoxic in the upper 80s on room air put on several liters oxygen. 10/20 Patient feels a little bit better. Says her shortness of breath is better but still present. However nurse had to titrate to 2 to 4 L and she got up to the bedside this morning. Has productive cough. 10/21 Cough present. She says her breathing is improved today. Still requiring 4 to 5 L of oxygen. Sodium within normal limits. cr 1.4. 10/22: Been on 5L oxygen overnight. Afebrile overnight. c/o shortness of breath. c/o productive cough with white sputum. Denies wheezing. Denies chest pain. Denies fever or chill or sweating. Denies general body weakness. 10/23: Desaturated to mid 80s spo2 despite 10L oxygen. Afebrile overnight. Patient is c/o worsening SOB. c/o nonproductive cough. Denies wheezing. Denies fever or chills or sweating. 10/24: Afebrile overnight. On CPAP with FiO2 overnight. Patient is c/o SOB, improving. c/o wheezing. Denies cough or sputum production. Denies fever or chills or sweating. 10/25: Afebrile overnight. On CPAP with FiO2 55% overnight. Unable to obtain subjective due to clinical situations. 10/26: Afebrile overnight. On BiPAP 15/10 FiO2 55% overnight. Been prone overnight. c/o SOB. c/o nonproductive cough, no sputum production or respiratory wheezing. Denies chest pain. Denies fever, chills, or sweating. 10/27: Afebrile overnight. Been prone overnight. Been switched to high flow oxygen at around midnight, currently 10L/min. Denies SOB. Denies cough or sputum production. Denies wheezing. Denies chest pain. Denies fever, chills, or sweating. 10/28: Afebrile overnight. Been prone overnight. Been switched back to BiPAP 12/12, FiO2 55%. Denies SOB. Denies cough or sputum production. Denies wheezing. Denies chest pain. Denies fever, chills, or sweating. 10/29 Patient feels little bit better than yesterday. Occasional cough. Shortness of breath comes and goes. Currently on 8 to 10 L oxygen mask. 10/30 Patient says she slept fine and is feeling fine. Denies cough. Denies shortne ss of breath at rest. Requiring oxygen mask at 8 L. She seems to be a mouth breather and desats on nasal cannula while eating. Instructed nurse patient to be out of bed to chair several times a day along with proning. 10/31 She feels she is gradually improving. Her oxygen needs are slowly improving. She is still very weak. CRP has improved on follow-up. Occasional cough. 11/01 Feeling a little bit better today again. Down to 2 L at rest. 11/02 Patient is quite weak but doing well from a respiratory standpoint. She is on 2 to 3 L of nasal cannula and not having increased need with mild exertion in room. Likely swing status soon. There is report low heart rate 49 early this morning but bumped up in the 70s when I saw her. Looks like previous night she was low as well. Will decrease beta-erin. 11/03 No overnight event or new complaints. Patient denies shortness of breath or cough. 11/04: Patient is no room air. Afebrile. Denies SOB. Denies cough or sputum production or wheezing. Constitutional Vitals: Vital Signs Temp Pulse Resp BP Pulse Ox 36.6 C 72 20 147/66 92 11/05/20 07:10 11/05/20 07:10 11/05/20 07:10 11/05/20 07:10 11/05/20 07:10 Period Temp Pulse Resp BP Sys/Tai Pulse Ox Last 24 Hr 36.4 C-37.3 C 60-77 18-24 116-152/58-66 91-94 Intake and Output 11/04/20 11/05/20 11/05/20 21:59 05:59 13:59 Intake Total 480 Output Total 2 4 250 Balance -2 476 -250 Weight 77.519 kg Intake & Output: Intake & Output 11/04/20 11/05/20 11/05/20 21:59 05:59 13:59 Intake Total 480 Output Total 2 4 250 Balance -2 476 -250 Weight 77.519 kg Intake: Oral 480 Output: Void Amount 250 # of times incontinent of urine 2 4 Other: Meal Lunch Percent of Meal Consumed 100% Stool Size Small Small Moderate Stool Color Brown Brown Brown Stool Consistency Soft Soft Soft Formed Formed Formed Loose # Bowel Movements 2 # of times incontinent of 1 Bowels General appearance: cooperative and no acute distress Exam: Prone Head Head exam: Present atraumatic and normocephalic Eye Eye exam: Present EOMI and PERRL ENT ENT exam: Present mucous membranes moist, normal exam and normal external ear exam Neck Neck exam: Present normal inspection; Absent lymphadenopathy, tenderness and thyromegaly Respiratory Respiratory exam: Absent accessory muscle use, respiratory distress and wheezes Cardiovascular Cardiovascular exam: Present normal rate and rhythm; Absent JVD GI/Abdominal GI/Abdominal exam: Present normal bowel sounds and soft; Absent organomegaly and tenderness Extremities Exam Extremities exam: Present full ROM, normal capillary refill and normal inspection; Absent tenderness Neurological Exam Neurological exam: Present alert, CN II-XII intact and oriented X3; Absent motor sensory deficit Psychiatric Psychiatric exam: Present normal affect and normal mood; Absent anxious and depressed Skin Skin exam: Present dry and intact OBJ DATA Labs CBC & Chem 7: 10/28/20 05:32 10/31/20 06:06 Meds: Medications Acetaminophen (Acetaminophen 325 Mg Tablet) 650 mg PO Q6HP PRN PRN Reason: PAIN/FEVER > 101 Last Admin: 11/04/20 22:54 Dose: 650 mg Documented by: Albuterol/Ipratropium (Ipratropium/Albuterol 3 Ml Ampul.Neb) 3 ml NEB Q4HP PRN PRN Reason: Shortness Of Breath Amlodipine Besylate (Amlodipine 5 Mg Tablet) 5 mg PO QDAY [facility] Last Admin: 11/05/20 08:35 Dose: 5 mg Documented by: Aspirin (Aspirin 81 Mg Tab.Chew) 81 mg PO QDAY [facility] Last Admin: 11/05/20 08:35 Dose: 81 mg Documented by: Citalopram Hydrobromide (Citalopram 20 Mg Tablet) 40 mg PO DAILY [facility] Last Admin: 11/05/20 08:35 Dose: 40 mg Documented by: Dextrose (Dextrose 50% 50 Ml Vial) 0 ml IV UD PRN PRN Reason: Hypoglycemia Diagnostic Test (Pha) (Accu-Chek 1 Each Strip) 1 each FS [facility] Last Admin: 11/05/20 08:23 Dose: 1 each Documented by: Dipyridamole (Dipyridamole 25 Mg Tablet) 50 mg PO QID [facility] Last Admin: 11/05/20 08:36 Dose: 50 mg Documented by: Docusate Sodium (Docusate Sodium 100 Mg Capsule) 100 mg PO BID [facility] Last Admin: 11/05/20 08:36 Dose: Not Given Documented by: Enoxaparin Sodium (Enoxaparin 40 Mg/0.4 Ml Syringe) 40 mg SQ DAILY [facility] Last Admin: 11/05/20 08:37 Dose: 40 mg Documented by: Gabapentin (Gabapentin 100 Mg Capsule) 100 mg PO QDAY [facility] Last Admin: 11/05/20 08:35 Dose: 100 mg Documented by: Glucose (Dextrose 31 Gm Oral.Susp) 15 gm PO PRN PRN PRN Reason: Hypoglycemia Guaifenesin (Guaifenesin/Dextromethorphan Oral Adelita) 10 ml PO Q4HP PRN PRN Reason: Cough Magnesium Sulfate (Magnesium Sulfate) 2 gm in 50 mls @ 50 mls/hr IV UD PRN PRN Reason: Magnesium </= 1.6 Potassium Chloride 40 meq/ (Dextrose) 520 mls @ 130 mls/hr IV UD PRN PRN Reason: Potassium < 3 Insulin Glargine (Insulin Glargine, Human 1 Unit/0.01 Ml) 30 unit SQ [facility] Last Admin: 11/05/20 10:25 Dose: 30 units Documented by: Insulin Human Lispro (Insulin Lispro 1 Unit/0.01 Ml Unit) 0 unit SQ [facility]; Protocol Last Admin: 11/05/20 10:24 Dose: 2 unit Documented by: Lorazepam (Lorazepam 2 Mg/Ml Vial) 1 mg IV Q4HP PRN PRN Reason: ANXIETY/SEDATION Losartan Potassium (Losartan 50 Mg Tablet) 100 mg PO QDAY [facility] Last Admin: 11/05/20 08:34 Dose: 100 mg Documented by: Ondansetron HCl (Ondansetron 4 Mg/2 Ml Vial) 4 mg IV Q4HP PRN PRN Reason: Nausea And Vomiting Oxybutynin Chloride (Oxybutynin Chloride 5 Mg Tablet) 5 mg PO QDAY [facility] Last Admin: 11/05/20 08:34 Dose: 5 mg Documented by: Pantoprazole Sodium (Pantoprazole 40 Mg Packet) 40 mg PO QAMAC [facility] Last Admin: 11/05/20 08:35 Dose: 40 mg Documented by: Polyethylene Glycol (Polyethylene Glycol 3350 17 Gm Packet) 17 gm PO DAILYP PRN PRN Reason: Constipation Potassium Chloride (Potassium Chloride 20 Meq Tablet) 40 meq PO UD PRN PRN Reason: Potssium is 3-3.5 Potassium Chloride (Potassium Chloride 20 Meq Tablet) 40 meq PO UD PRN PRN Reason: Potassium < 3 Pravastatin Sodium (Pravastatin 40 Mg Tablet) 40 mg PO HS [facility] Last Admin: 11/04/20 20:24 Dose: 40 mg Documented by: Fluticasone/Salmeterol (Fluticasone/Salmeterol 250/50 Inhaler #14) 1 puff INH BID [facility] Last Admin: 11/05/20 08:36 Dose: 1 puff Documented by: Senna (Sennosides 1 Tablet) 2 tab PO DAILYP PRN PRN Reason: Constipation Sodium Chloride (0.9 % Sodium Chloride 10 Ml Syringe) 10 ml IV Q8 [facility] Last Admin: 11/05/20 04:15 Dose: 10 ml Documented by: Trazodone HCl (Trazodone Hcl 50 Mg Tablet) 50 mg PO QHS PRN PRN Reason: Sleep A/P Assessment and plan (1) Hypochromic microcytic anemia: Status: Acute (2) COVID-19: Status: Acute (3) COPD (chronic obstructive pulmonary disease): Status: Acute (4) Essential (primary) hypertension: Status: Acute (5) Mixed dyslipidemia: Status: Acute (6) Depression: Status: Acute Narrative A/P Narrative: Assessment and Plans: 1. CoVID pneumonia: d/c isolation protocol Currently tolerating room air Finished Remdesivir Finsihed Dexamethasone Lovenox PPX dose 2. h/o COPD, stable: Currently tolerating room air Continue bronchodilators PRN wheezing Dexamethasone PO 3. Anemia, microcytic hypochromic: cbc w/ auto diff in the morning to trend H/H; transfuse pRBC if hemoglobin <7.0, active bleeding, or symptomatic 4. Essential HTN: Currently normotensive Continue Metoprolol succinate, Amlodipine and Losartan Lasix 5. Depression: Citalopram GI ppx: not currently indicated DVT ppx: Lovenox Code status: Full Prognosis: stable Disposition: inpatient med surg; pending PT OT evaluation for placement Time Spent With Patient Time: Total time spent is greater than 50% in coordination of care (as do cumented) at patient's floor/unit and/or counseling patient:
[2020-11-05] MEDS: PRAVASTATIN 40 MG TABLET PO SCH (20:32)
[2020-11-06] MEDS: 0.9 % SODIUM CHLORIDE 10 ML SYRINGE IV SCH ×2 (00:46→08:56)
[2020-11-06] MEDS: DIPYRIDAMOLE 25 MG TABLET PO SCH (08:54)
[2020-11-06] MEDS: ENOXAPARIN 40 MG/0.4 ML SYRINGE SQ SCH (08:54)
[2020-11-06] MEDS: CITALOPRAM 20 MG TABLET PO SCH (08:55)
[2020-11-06] MEDS: FLUTICASONE/SALMETEROL 250/50 INHALER #14 INH SCH (08:55)
[2020-11-06] MEDS: GABAPENTIN 100 MG CAPSULE PO SCH (08:55)
[2020-11-06] MEDS: OXYBUTYNIN CHLORIDE 5 MG TABLET PO SCH (08:55)
[2020-11-06] MEDS: LOSARTAN 50 MG TABLET PO SCH (08:55)
[2020-11-06] MEDS: PANTOPRAZOLE 40 MG PACKET PO SCH (08:55)
[2020-11-06] MEDS: ASPIRIN 81 MG TAB.CHEW PO SCH (08:55)
[2020-11-06] MEDS: amLODIPine 5 MG TABLET PO SCH (08:56)
[2020-11-06] MEDS: INSULIN LISPRO 1 UNIT/0.01 ML UNIT SQ SCH (09:04)
[2020-11-06] MEDS: DOCUSATE SODIUM 100 MG CAPSULE PO SCH (09:07)
--- NOTE | 2020-11-06 09:23 | Discharge Summary ---
Discharge Provider Provider Patient information: Note initiated : 11/06/20 at 9:20 am Service Date, if different from initiated Date: [] Patient: Sharla Michaels 75 y/o F admitted on 10/19/20 for COVID POSITIVE, SOB. Chief Complaint: [CoVID pneumonia] Date of admission: 10/19/20 22:55 Discharge date: 11/06/20 Primary care physician: Aleyda Mendez Consults: 10/19/20 Consult to Physician [CONS] Stat Comment: Consulting Provider: Jose Ramos Reason For Exam: Physician to Consult Consult to Physician [CONS] Stat Comment: Consulting Provider: Jose Ramos Reason For Exam: Physician to Consult Consult to Physician [CONS] Stat Comment: Consulting Provider: Jose Ramos Reason For Exam: Physician to Consult Discharge Meds Discharge Medications Home Medications gabapentin 100 mg capsule 100 mg PO QDAY 02/08/18 [History Confirmed 10/20/20 Last Taken 10/18/20] pantoprazole 40 mg granules delayed-release for susp in packet 40 mg PO QDAY 02/08/18 [History Confirmed 10/20/20 Last Taken 10/18/20] amlodipine 5 mg tablet 5 mg PO QDAY 05/29/20 [History Confirmed 10/19/20 Last Taken 10/18/20 09:00] aspirin 81 mg chewable tablet 81 mg PO QDAY 05/29/20 [History Confirmed 10/19/20 Last Taken 10/18/20 09:00] citalopram 40 mg tablet 40 mg PO QDAY tab 05/29/20 [History Confirmed 10/19/20 Last Taken 10/18/20] dipyridamole 25 mg tablet 50 mg PO QID tab 05/29/20 [History Confirmed 10/19/20 Last Taken 10/18/20] insulin glargine 100 unit/mL (3 mL) subcutaneous pen 30 unit SUBCUT QAM ml 05/29/20 [History Confirmed 10/20/20 Last Taken 10/19/20 09:00] losartan 50 mg tablet 100 mg PO QDAY tab 05/29/20 [History Confirmed 10/20/20 Last Taken 10/18/20] oxybutynin chloride 5 mg tablet 5 mg PO QDAY 05/29/20 [History Confirmed 10/20/20 Last Taken 10/18/20] pravastatin 40 mg tablet 40 mg PO QDAY 05/29/20 [History Confirmed 10/20/20 Last Taken 10/18/20] trazodone 50 mg tablet 50 mg PO QHS PRN 05/29/20 [History Confirmed 10/20/20 Last Taken 10/17/20] ergocalciferol (vitamin D2) 1,250 mcg PO WEEKLY 10/18/20 [History Confirmed 10/20/20 Last Taken 10/18/20] fluticasone propion-salmeterol [Advair HFA] 2 puff INHALATION Q12H #8 g 11/01/20 [Rx Last Taken Unknown] metoprolol succinate [Toprol XL] 25 mg PO QDAY #30 tab 11/02/20 [Rx Last Taken Unknown] COURSE Hospital Course Hospital course: Patient was admitted on October 19, 2020 for Covid pneumonia with associated acute onset respiratory failure with hypoxia. Stented Covid pneumonia treatment including supplemental oxygen's, remdesivir, dexamethasone, anticoagulations with Lovenox were all given. Patient headache gradual course of recovery and she eventually tolerated room air, been afebrile for days, and the leukocytosis resolved, and reached clinical stability. Physical and occupational therapist evaluated the patient and both recommend SNF placement. Patient was eventually being accepted by a SNF facility on November 06, 2020 and she was being physically discharged on the same date. All questions were answered prior to patient being physically discharged. Discharge diagnosis: CoVID pneumonia Time Spent with Patient Time attestation: Total time spent providing and/or coordinating discharge services: Patient was admitted on October 19, 2020 for Covid pneumonia with associated acute onset respiratory failure with hypoxia. Stented Covid pneumonia treatment including supplemental oxygen's, remdesivir, dexamethasone, anticoagulations with Lovenox were all given. Patient headache gradual course of recovery and she eventually tolerated room air, been afebrile for days, and the leukocytosis resolved, and reached clinical stability. Physical and occupational therapist evaluated the patient and both recommend SNF placement. Patient was eventually being accepted by a SNF facility on November 06, 2020 and she was being physically discharged on the same date. All questions were answered prior to patient being physically discharged. EXAM Constitutional Vitals: Temp Pulse Resp BP Pulse Ox 36.2 C 73 22 145/67 96 11/06/20 07:50 11/06/20 07:50 11/06/20 07:50 11/06/20 07:50 11/06/20 07:50 General appearance: cooperative and no acute distress Head Head exam: Present atraumatic and normocephalic Eye Eye exam: Present EOMI and PERRL ENT ENT exam: Present mucous membranes moist, normal exam and normal external ear exam Neck Neck exam: Present normal inspection; Absent lymphadenopathy, tenderness and thyromegaly Respiratory Respiratory exam: Absent accessory muscle use, respiratory distress and wheezes Cardiovascular Cardiovascular exam: Present normal rate and rhythm; Absent JVD GI/Abdominal GI/Abdominal exam: Present normal bowel sounds and soft; Absent organomegaly and tenderness Extremities Exam Extremities exam: Present full ROM, normal capillary refill and normal inspection; Absent tenderness Neurological Exam Neurological exam: Present alert, CN II-XII intact and oriented X3; Absent motor sensory deficit Psychiatric Psychiatric exam: Present normal affect and normal mood; Absent anxious and depressed Skin Skin exam: Present dry and intact Discharge Plan Patient/Caregiver Discharge Instructions Activity: increase activity as tolerated Diet: Consistent Carbohydrate Prescriptions: New Advair HFA 230-21 mcg/actuation HFA aerosol inhaler 2 puff inhalation Q12H Qty: 8 RF: 0 metoprolol succinate [Toprol XL] 25 mg tablet extended release 24 hr 25 mg PO QDAY Qty: 30 RF: 0 Continued pantoprazole [address] for susp in packet 40 mg PO QDAY RF: 0 gabapentin 100 mg capsule 100 mg PO QDAY RF: 0 aspirin [Aspirin Childrens] 81 mg tablet,chewable 81 mg PO QDAY RF: 0 citalopram 40 mg tablet 40 mg PO QDAY RF: 0 amlodipine 5 mg tablet 5 mg PO QDAY RF: 0 Lantus Solostar U-100 Insulin 100 unit/mL (3 mL) insulin pen 30 unit subcut QAM RF: 0 losartan 50 mg tablet 100 mg PO QDAY RF: 0 oxybutynin chloride 5 mg tablet 5 mg PO QDAY RF: 0 pravastatin 40 mg tablet 40 mg PO QDAY RF: 0 trazodone 50 mg tablet 50 mg PO QHS PRN (Reason: Sleep) RF: 0 dipyridamole 25 mg tablet 50 mg PO QID RF: 0 ergocalciferol (vitamin D2) 1,250 mcg (50,000 unit) capsule 1,250 mcg PO WEEKLY RF: 0 Discontinued metoprolol succinate 50 mg tablet extended release 24 hr 50 mg PO BID RF: 0 azithromycin 250 mg tablet 250 mg PO QDAY 6 Days Qty: 6 RF: 0 Follow Up Plan Follow up with: Aleyda Mendez MD [Primary Care Provider] - Patient Disposition: Home Health Service Prognosis: Fair Rehab Potential: Good I certify that the patient requires SNF services: Yes Overall status at discharge: patient is back to baseline Discharge Orders: Discharge Order (Routine); Ordered 11/06/20 Ordered By: Marcelino Coleman
[2020-11-06] MEDS: INSULIN GLARGINE, HUMAN 1 UNIT/0.01 ML SQ SCH (10:41)
== END 2020-11-06 10:30 | disposition home health service (06) | DRG 177 ==
LOC: ED 18:56 → MEDSUR 22:55 → ICU 10-23 09:26 → MEDSUR 11-03 02:49
PROVIDERS: ADMIT Internal Medicine; ATTEND Internal Medicine

== ENCOUNTER 2023-11-19 14:54 | Observation (INO) ==
[2023-11-19 15:56] LABS: Basophils # (Auto) 0.06 K/mcL (0.00-0.30); Basophils % (Auto) 0.4 % (0.0-2.0); Eosinophils # (Auto) 0.03 K/mcL (0.00-0.70); Eosinophils % (Auto) 0.2 % (0.0-7.0); Hematocrit 41.6 % (34.1-44.9); Lymphocytes # (Auto) 1.84 K/mcL (1.50-4.80); Lymphocytes % (Auto) 13.5 % (15.5-49.0); Mean Cell Volume 85.8 fL (80.0-100.0); Mean Corpuscular HGB Conc 33.7 g/dL (31.0-36.0); Mean Platelet Volume 9.8 fL (8.8-12.5); Monocytes # (Auto) 0.85 K/mcL (0.10-0.90); Monocytes % (Auto) 6.2 % (1.0-12.0); Neutrophils % (Auto) 79.5 % (38.0-78.0); Platelet Count 288 K/mcL (140-440); RBC 4.85 M/mcL (3.59-5.38); Red Cell Distribution Width 12.9 % (11.5-14.5); WBC 13.6 K/mcL (4.5-11.0)
[2023-11-19 16:12] LABS: ALT/SGPT 13 U/L (<40); AST/SGOT 39 U/L (<32); Albumin 4.3 gm/dL (3.2-5.2); Albumin/Globulin Ratio 1.4 (1.0-2.3); Alkaline Phosphatase 107 U/L (39-117); Bilirubin,Total 0.6 mg/dL (0.1-1.0); Blood Urea Nitrogen 19 mg/dL (8-23); Calcium 10.5 mg/dL (8.6-10.4); Carbon Dioxide 21 mmol/L (22-30); Chloride 101 mmol/L (96-108); Globulin 3.1 gm/dL (2.2-3.7); Glomerular Filtration Rate 29; Glucose 215 mg/dL (70-105); Potassium 4.7 mmol/L (3.3-5.1); Sodium 137 mmol/L (133-145)
[2023-11-19] MEDS: ACETAMINOPHEN 1,000 MG/100 ML BAG IV ONE (16:45)
[2023-11-19] MEDS: CIPROFLOXACIN/DEXAMETH OTIC BOTTLE 7.5ML AS ONE (17:58)
[2023-11-19] MEDS: cloNIDine HCL 0.1 MG TABLET PO SCH ×2 (18:10→19:09)
[2023-11-19 19:36] LABS: Appearance,Urine HAZY (Clear); Bilirubin,Urine Negative (Negative); Color,Urine YELLOW; Glucose,Urine (UA) 50 mg/dL (Negative); Ketones,Urine Negative (Negative); Leukocyte Esterase,Urine Negative /uL (Negative); Mucus,Urine FEW /hpf; Nitrate,Urine Negative (Negative); Protein,Urine >=500 mg/dL (Negative); Specific Gravity,Urine 1.024 (1.000-1.035); Urine Blood Large ery/mcL (Negative); Urine Hyaline Cast 15 /lph (0-2); Urine RBC 2 /hpf (0-3); Urine Squamous Epithelial Cell 2 /hpf (0-4); Urine WBC 20 /hpf (0-4); Urine Waxy Cast 1 /lph (0-0); Urobilinogen,Urine Negative
[2023-11-19] MEDS: cefTRIAXone 1 GM VIAL IV ONE (20:59)
[2023-11-19] MEDS: LOSARTAN 50 MG TABLET PO ONE (21:25)
[2023-11-19] MEDS: amLODIPine 5 MG TABLET PO ONE (21:25)
[2023-11-19] MEDS ORDERED: morphine 4 MG/ML VIAL IV PRN (23:27)
[2023-11-19] MEDS ORDERED: ACETAMINOPHEN 325 MG TABLET PO PRN (23:27)
[2023-11-19] MEDS ORDERED: DEXTROSE 50% 50 ML VIAL IV PRN (23:27)
[2023-11-19] MEDS ORDERED: DEXTROSE 31 GM ORAL.SUSP PO PRN (23:27)
[2023-11-19] MEDS ORDERED: oxyCODONE IR 5 MG TABLET PO PRN (23:27)
[2023-11-19] MEDS ORDERED: ONDANSETRON 4 MG/2 ML VIAL IV PRN (23:27)
[2023-11-19] MEDS ORDERED: IPRATROPIUM/ALBUTEROL 3 ML AMPUL.NEB NEB PRN (23:27)
[2023-11-20 06:54] LABS: Basophils # (Auto) 0.06 K/mcL (0.00-0.30); Basophils % (Auto) 0.6 % (0.0-2.0); Eosinophils # (Auto) 0.22 K/mcL (0.00-0.70); Eosinophils % (Auto) 2.3 % (0.0-7.0); Hematocrit 35.7 % (34.1-44.9); Lymphocytes # (Auto) 1.97 K/mcL (1.50-4.80); Lymphocytes % (Auto) 20.2 % (15.5-49.0); Mean Cell Volume 86.4 fL (80.0-100.0); Mean Corpuscular HGB Conc 33.6 g/dL (31.0-36.0); Monocytes # (Auto) 0.71 K/mcL (0.10-0.90); Monocytes % (Auto) 7.3 % (1.0-12.0); Neutrophils % (Auto) 69.5 % (38.0-78.0); Platelet Count 252 K/mcL (140-440); RBC 4.13 M/mcL (3.59-5.38); WBC 9.8 K/mcL (4.5-11.0)
[2023-11-20 07:40] LABS: ALT/SGPT 10 U/L (<40); AST/SGOT 23 U/L (<32); Albumin 3.6 gm/dL (3.2-5.2); Albumin/Globulin Ratio 1.5 (1.0-2.3); Alkaline Phosphatase 90 U/L (39-117); Bilirubin,Total 0.4 mg/dL (0.1-1.0); Blood Urea Nitrogen 23 mg/dL (8-23); Calcium 9.9 mg/dL (8.6-10.4); Carbon Dioxide 24 mmol/L (22-30); Chloride 104 mmol/L (96-108); Globulin 2.4 gm/dL (2.2-3.7); Glomerular Filtration Rate 25; Glucose 207 mg/dL (70-105); Sodium 138 mmol/L (133-145)
[2023-11-20] MEDS: AZITHROMYCIN 250 MG TABLET PO SCH (08:11)
[2023-11-20] MEDS: HEPARIN 5,000 UNIT/ML VIAL SQ SCH (08:11)
[2023-11-20] MEDS: DOCUSATE SODIUM 100 MG CAPSULE PO SCH (08:11)
[2023-11-20] MEDS: INSULIN LISPRO 1 UNIT/0.01 ML UNIT SQ SCH (08:11)
[2023-11-20] MEDS: 0.9 % SODIUM CHLORIDE 1,000 ML IV SCH (11:59)
[2023-11-20 13:04] LABS: Estimated Average Glucose(eAG) 171 mg/dL; Hemoglobin A1C 7.6 % Hgb (4.0-6.0)
[2023-11-20] MEDS: 0.9 % SODIUM CHLORIDE 10 ML SYRINGE IV SCH (20:45)
[2023-11-20] MEDS: METOPROLOL TARTRATE 50 MG TABLET PO SCH (20:46)
[2023-11-20] MEDS: MELATONIN 3 MG TABLET PO PRN (20:46)
[2023-11-20] MEDS: DIPYRIDAMOLE 25 MG TABLET PO SCH (20:46)
[2023-11-20] MEDS: SENNOSIDES 1 TABLET PO SCH (20:46)
[2023-11-20] MEDS ORDERED: traZODone HCL 100 MG TABLET PO SCH (21:00)
[2023-11-20] MEDS: hydrALAZINE 20 MG/ML VIAL IV PRN (23:40)
[2023-11-21 06:48] LABS: ALT/SGPT 9 U/L (<40); AST/SGOT 18 U/L (<32); Albumin 3.3 gm/dL (3.2-5.2); Albumin/Globulin Ratio 1.5 (1.0-2.3); Alkaline Phosphatase 81 U/L (39-117); Bilirubin,Total 0.3 mg/dL (0.1-1.0); Blood Urea Nitrogen 24 mg/dL (8-23); Calcium 9.4 mg/dL (8.6-10.4); Carbon Dioxide 22 mmol/L (22-30); Chloride 109 mmol/L (96-108); Globulin 2.2 gm/dL (2.2-3.7); Glomerular Filtration Rate 31; Glucose 165 mg/dL (70-105); Potassium 3.9 mmol/L (3.3-5.1); Sodium 141 mmol/L (133-145)
[2023-11-21 06:51] LABS: Basophils # (Auto) 0.09 K/mcL (0.00-0.30); Basophils % (Auto) 0.9 % (0.0-2.0); Eosinophils # (Auto) 0.34 K/mcL (0.00-0.70); Eosinophils % (Auto) 3.6 % (0.0-7.0); Hematocrit 34.6 % (34.1-44.9); Hemoglobin 11.4 g/dL (11.2-15.7); Lymphocytes # (Auto) 2.18 K/mcL (1.50-4.80); Lymphocytes % (Auto) 22.9 % (15.5-49.0); Mean Cell Volume 89.2 fL (80.0-100.0); Mean Corpuscular HGB Conc 32.9 g/dL (31.0-36.0); Monocytes % (Auto) 6.3 % (1.0-12.0); Neutrophils % (Auto) 66.1 % (38.0-78.0); Platelet Count 228 K/mcL (140-440); RBC 3.88 M/mcL (3.59-5.38); Red Cell Distribution Width 13.1 % (11.5-14.5); WBC 9.5 K/mcL (4.5-11.0)
[2023-11-21] MEDS: PANTOPRAZOLE 40 MG TABLET PO SCH (07:22)
[2023-11-21] MEDS: CITALOPRAM 20 MG TABLET PO SCH (08:34)
[2023-11-21] MEDS: GABAPENTIN 100 MG CAPSULE PO SCH (08:34)
[2023-11-21] MEDS: AZITHROMYCIN 250 MG TABLET PO SCH (08:34)
[2023-11-21] MEDS: LOSARTAN 50 MG TABLET PO SCH (08:34)
[2023-11-21] MEDS: OXYBUTYNIN CHLORIDE 5 MG TAB.XL.24H PO SCH (08:34)
[2023-11-21] MEDS: ASPIRIN 81 MG TAB.CHEW PO SCH (08:35)
[2023-11-21] MEDS: INSULIN GLARGINE, HUMAN 1 UNIT/0.01 ML SQ SCH (08:35)
[2023-11-22] MEDS ORDERED: ERGOCALCIFEROL (VITAMIN D2) 50,000 UNIT CAPSULE PO SCH (09:00)
== END 2023-11-21 13:00 ==
LOC: MEDSUR 14:54 → ED 14:54 → MEDSUR 23:30
PROVIDERS: ADMIT Internal Medicine; ATTEND Internal Medicine